=== PATIENT | female | born 1950 | race Caucasian/White ===

== ENCOUNTER 2017-07-22 05:52 | Observation (INO) | payer MEDICARE ==
[~2017-07-22] VITALS: Ht 165.1 cm; Wt 78.9 kg
[~2017-07-22 05:52] MED LIST: ADVA250A INH; BENZ0.5T PO; ERYTOIN10 RIGHT EYE; FLUT50SP EACH NARE; FURO20TA PO; HUMALOG SQ; LAMO100T PO; LANTUS2P SQ; LEVO150T7 PO; LINA145C PO; LISI10TA3 PO; LOSA100T PO; MELO7.5T27 PO; METF-381 PO; METO10TA PO; METO25TA3 PO; NEXI40GR PO; OLAN10TA PO; QUET1TAB10 PO; REST0.05 EACH EYE; SENN1TAB17 PO; TOPA50TA7 PO; TYLETAB34 PO; ZOLO100T PO
[2017-07-22] MEDS ORDERED: CHLORHEXIDINE GLUCONATE 2 % 1 PACK (2 CLOTHS) TOPICAL PRN (06:45)
[2017-07-22] MEDS ORDERED: ceFAZolin 2 GM PREMIX 50 ML IV SCH (06:45)
[2017-07-22] MEDS ORDERED: SODIUM CHLORID 0.9% 500 ML IV PRN (06:45)
[2017-07-22] MEDS ORDERED: LACTATED RINGER'S 1000 ML IV PRN (06:45)
[2017-07-22] MEDS ORDERED: POVIDONE IODINE 5% (ANTISEPSIS KIT) 4 APPLICATIONS EACH NARE PRN (06:45)
[2017-07-22] MEDS ORDERED: INSULIN HUMAN REGULAR 1,000 UNITS/10 ML VIAL SQ PRN (06:45)
[2017-07-22] MEDS ORDERED: METOPROLOL TARTRATE 25 MG TAB PO PRN (06:45)
[2017-07-22] MEDS ORDERED: FURO20TA PO (07:03)
[2017-07-22] MEDS ORDERED: LANTINJ SQ ×2 (07:14)
[2017-07-22] MEDS ORDERED: INSU100V2 SQ (07:18)
[2017-07-22] MEDS ORDERED: SENO8.6T5 PO (07:24)
--- NOTE | 2017-07-22 10:24 | EKG ---
Date Performed: 07/22/2017 Time Performed: 06:55:30 PTAGE: 66 years EKG: Sinus rhythm NORMAL ECG Compared to prior tracing no significant change PREVIOUS TRACING : 11/06/2013 13.20 DOCTOR: Oskar Sun Interpretating Date/Time 07/22/2017 10:23:04
--- NOTE | 2017-07-22 11:03 | RADRPT ---
EXAM DATE/TIME: 07/22/2017 09:15 [facility] COMPARISON: No previous studies available for comparison. EXTERNAL COMPARISON : [facility], MR BREAST, BILATERAL, June 19, 2017TLI, MG MAMMOGRAM POST BX, April , TLI, US GUIDED BREAST BIOPSY MAY 27, 2017, DEL, US BREAST, LEFT , APRIL 30 2017, DEL, MG MAMMOG KARON, LEFT, April, DEL, MG SCREENING MAMMOGRAM, APRIL 17, 2017, DEL, MG SCREENING GDIG MAMMO, MARCH 26, 2017 INDICATIONS : Left breast cancer. MEDICAL HISTORY : Carcinoma, breast. Hypertension. Diabetes mellitus type 2. COPD SURGICAL HISTORY : Knee replacement. Breast biopsy. ENCOUNTER: Sequela ACUITY: 3 months PAIN SCORE: 0/10 LOCATION: Left breast. AREA EVALUATED: Left breast, mid quadrant; at 12 o'clock Radiopharmaceutical dose: 1.0 Tc99m [place] colloid FINDINGS: Breast ultrasound was performed prior to lymphoscintigraphy. Injection was performed in the lesion a s well as in the subareolar region overlying the lesion. CONCLUSION: 1. Ultrasound guided injection of technetium 99m sulfur colloid for performance of breast lymphoscint igraphy. Maxi Freedman MD on July 22, 2017 at 11:00 Board Certified Radiologist. This report was verified electronically.
--- NOTE | 2017-07-22 11:03 | RADRPT ---
EXAM DATE/TIME: 07/22/2017 09:15 [facility] COMPARISON: No previous studies available for comparison. EXTERNAL COMPARISON : [facility], MR BREAST, BILATERAL, June 19, 2017TLI, MG MAMMOGRAM POST BX, April , TLI, US GUIDED BREAST BIOPSY MAY 27, 2017, DEL, US BREAST, LEFT , APRIL 30 2017, DEL, MG MAMMOG KARON, LEFT, April, DEL, MG SCREENING MAMMOGRAM, APRIL 17, 2017, DEL, MG SCREENING GDIG MAMMO, MARCH 26, 2017 INDICATIONS : Left breast cancer. MEDICAL HISTORY : Carcinoma, breast. Hypertension. Diabetes mellitus type 2. COPD SURGICAL HISTORY : Knee replacement. Breast biopsy. ENCOUNTER: Sequela ACUITY: 3 months PAIN SCORE: 0/10 LOCATION: Left breast. AREA EVALUATED: Left breast, mid quadrant; at 12 o'clock Radiopharmaceutical dose: 1.0 Tc99m [place] colloid FINDINGS: Breast ultrasound was performed prior to lymphoscintigraphy. Injection was performed in the lesion a s well as in the subareolar region overlying the lesion. CONCLUSION: 1. Ultrasound guided injection of technetium 99m sulfur colloid for performance of breast lymphoscint igraphy. Maxi Freedman MD on July 22, 2017 at 11:00 Board Certified Radiologist. This report was verified electronically.
[2017-07-22] MEDS ORDERED: HYDROmorphone HCL PF 2 MG/ML VIAL ONE (11:12)
[2017-07-22] MEDS ORDERED: ACETAMINOPHEN 1000 MG/100 ML 100 ML IV ONE (11:12)
[2017-07-22] MEDS ORDERED: DEXTROSE 50% IN WATER 50 ML SYRINGE ONE (12:44)
[2017-07-22] MEDS ORDERED: HEPARIN SODIUM - SQ 10,000 UNITS/ML VIAL ONE (13:14)
--- NOTE | 2017-07-22 13:16 | RADRPT ---
EXAM DATE/TIME: 07/22/2017 09:39 [facility] COMPARISON: No previous studies available for comparison. EXTERNAL COMPARISON : [facility], MR BREAST BILATERAL, June 19, 2017 INDICATIONS : Left sided breast cancer. DOSE: 1.0 mCi Tc99m Sulfur Colloid deep and instradermal INJECTION SITE: Left Breast IMAGING: SPECT/CT imaging with fusion was performed. RADIATION DOSE: 2.87 CTDIvol (mGy) MEDICAL HISTORY : Hypertension. Hypothyroidism. Chronic obstructive pulmonary disease. SURGICAL HISTORY : Hysterectomy. Tubal ligation. Inguinal hernia repair. ENCOUNTER: Initial ACUITY: 1 month PAIN SCALE: 0/10 LOCATION: Left Breast. TECHNIQUE: Injection(s) of sulfur colloid was performed under sonographic guidance. Static imaging was obtained .. FINDINGS: Imaging of the left breast was obtained and confirms the intradermal and deep injection in the left b reast. There are 2 regions of justice uptake in the left axilla which were marked with a skin marker in the lateral projection. CONCLUSION: 1. Breast lymphoscintigraphy demonstrating 2 regions of justice uptake in the left axilla which were ma rked with a skin marker in the lateral projection. Maxi Freedman MD on July 22, 2017 at 13:04 Board Certified Radiologist. This report was verified electronically.
[2017-07-22] MEDS ORDERED: ESMOLOL HCL 100 MG/10 ML VIAL IV ONE (13:18)
[2017-07-22] MEDS ORDERED: PROPOFOL 200 MG/20 ML AMP IV ONE (13:18)
[2017-07-22] MEDS ORDERED: NEOSTIGMINE 3 MG/3 ML SYR IV ONE (13:18)
[2017-07-22] MEDS ORDERED: ROCURONIUM INJ 50 MG/5 ML SYRINGE IV PUSH ONE (13:18)
[2017-07-22] MEDS ORDERED: SODIUM CHLORIDE 0.9% 20 ML VIAL IV ONE (13:18)
[2017-07-22] MEDS ORDERED: STERILE WATER FOR INJECTION 20 ML VIAL IV ONE (13:18)
[2017-07-22] MEDS ORDERED: ePHEDrine/NS 25 MG/5 ML SYR IV ONE (13:18)
[2017-07-22] MEDS ORDERED: ONDANSETRON HCL 4 MG/2 ML VIAL IV PUSH ONE (13:18)
[2017-07-22] MEDS ORDERED: MIDAZOLAM HCL 2 MG/2 ML VIAL IV ONE (13:18)
[2017-07-22] MEDS ORDERED: PHENYLEPH/NS 1000 MCG/10 ML SYR IV ONE (13:18)
[2017-07-22] MEDS ORDERED: LIDOCAINE HCL 1% PF 5 ML AMPULE OTHER ONE (13:18)
[2017-07-22] MEDS ORDERED: KETOROLAC TROMETHAMINE 30 MG/ML (IVP) VIAL IV PUSH ONE (13:18)
[2017-07-22] MEDS ORDERED: DEXAMETHASONE SOD PHOS 4 MG/ML VIAL IV ONE (13:18)
[2017-07-22] MEDS ORDERED: VECURONIUM BROMIDE 20 MG VIAL IV ONE (13:18)
[2017-07-22] MEDS ORDERED: NORMOSOL R INJ 2,000 ML IV ONE (13:18)
[2017-07-22] MEDS ORDERED: GLYCOPYRROLATE 1 MG/5 ML SYRINGE IV PUSH ONE (13:18)
[2017-07-22 13:34] LABS: AUTOMATED NEUTROPHIL # 4.7 TH/MM3 (1.8-7.7); BASOPHIL % 0.7 % (0.0-2.0); EOSINOPHIL # 0.3 TH/MM3 (0-0.4); EOSINOPHIL % 4.7 % (0.0-4.0); HEMATOCRIT 33.3 % (35.0-46.0); LYMPH % 21.4 % (9.0-44.0); LYMPHOCYTE # 1.5 TH/MM3 (1.0-4.8); MEAN CELL VOLUME 85.8 FL (80.0-100.0); MEAN CORPUSCULAR HEMOGLOBIN 28.3 PG (27.0-34.0); MEAN PLATELET VOLUME 9.4 FL (7.0-11.0); MONO % 7.2 % (0.0-8.0); MONOCYTE # 0.5 TH/MM3 (0-0.9); PLATELET COUNT 183 TH/MM3 (150-450); RED BLOOD COUNT 3.89 MIL/MM3 (4.00-5.30); RED CELL DISTRIBUTION WIDTH 14.2 % (11.6-17.2); WHITE BLOOD COUNT 7.2 TH/MM3 (4.0-11.0)
[2017-07-22 13:47] LABS: BICARBONATE 26.5 MEQ/L (21.0-32.0); CREATININE 0.9 MG/DL (0.50-1.00)
[2017-07-22] MEDS ORDERED: ISOSULFAN BLUE 50 MG/5 ML VIAL SQ ONE (14:25)
[2017-07-22] MEDS ORDERED: BUPIVACAINE/EPINEPHRINE 0.25% PF 30 ML VIAL INFIL ONE (15:45)
[2017-07-22] MEDS ORDERED: Post-op Orders (for Pharmacy) MISC XX ONE (16:00)
[2017-07-22] MEDS ORDERED: diphenhydrAMINE HCL 50 MG/ML VIAL IV PUSH PRN (16:00)
[2017-07-22] MEDS ORDERED: ONDANSETRON HCL 4 MG/2 ML VIAL IV PUSH PRN (16:00)
[2017-07-22] MEDS ORDERED: SENNOSIDES 8.6 MG TAB PO PRN (16:00)
[2017-07-22] MEDS ORDERED: oxyCODONE/ACETAMINOPHEN 5 MG/325 MG TAB PO PRN (16:00)
[2017-07-22] MEDS ORDERED: NALOXONE HCL 0.4 MG/ML AMP IV PUSH PRN (16:00)
[2017-07-22] MEDS ORDERED: KETOROLAC TROMETHAMINE 30 MG/ML (IVP) VIAL IVP PRN (16:00)
[2017-07-22] MEDS ORDERED: SODIUM CHLORIDE 0.9% FLUSH 5 ML FLUSH IVF PRN (16:00)
[2017-07-22] MEDS ORDERED: MORPHINE SULFATE 2 MG/ML INJ IV PUSH PRN (16:00)
[2017-07-22] MEDS ORDERED: NALOXONE HCL 0.4 MG/ML AMP ONE (16:13)
[2017-07-22] MEDS ORDERED: DO NOT ADM ANY ANTICOAGULANT DRUGS PRN (16:30)
[2017-07-22] MEDS ORDERED: *ONDANSETRON 4 MG VIAL PERIprocedural Use ONLY ONE (16:44)
[2017-07-22] MEDS ORDERED: INSULIN REGULAR 100 UNIT/ML IV SCH (17:00)
[2017-07-22] MEDS: LACTATED RINGER'S 1000 ML INJ 1,000 ML IV SCH (17:07)
--- NOTE | 2017-07-22 17:09 | RADRPT ---
EXAM DATE/TIME: 07/22/2017 16:40 [facility] COMPARISON: No previous studies available for comparison. INDICATIONS : Right chest port placement. MEDICAL HISTORY : Carcinoma, breast. SURGICAL HISTORY : Tubal ligation. Hysterectomy. Mastectomy, bilateral. Hernia repair. Cataract correction. ENCOUNTER: Initial ACUITY: 1 day PAIN SCORE: Non-responsive. LOCATION: Bilateral chest FINDINGS: Right Qmdywn-l-Hneg catheter tip is projected at the cavoatrial junction. No evidence of pneumothora x. There is some thickening of the pleura in the right apex which is nonspecific but raises the poss ibility of a pleural effusion. No blunting of costophrenic angle on the right. There is some fullne ss in the hilar region bilaterally and patches of infiltrate in the left infrahilar region. Surgical drain projects over the lower left chest. CONCLUSION: 1. Loreek-b-Vtig in good position. No evidence pneumothorax. 2. Patchy partially consolidated infiltrates left infrahilar region. 3. Possible right-sided pleural effusion. Valdemar Fink MD on July 22, 2017 at 17:05 Board Certified Radiologist. This report was verified electronically.
--- NOTE | 2017-07-22 17:09 | RADRPT ---
EXAM DATE/TIME: 07/22/2017 16:40 [facility] COMPARISON: No previous studies available for comparison. INDICATIONS : Right chest port placement. MEDICAL HISTORY : Carcinoma, breast. SURGICAL HISTORY : Tubal ligation. Hysterectomy. Mastectomy, bilateral. Hernia repair. Cataract correction. ENCOUNTER: Initial ACUITY: 1 day PAIN SCORE: Non-responsive. LOCATION: Bilateral chest FINDINGS: Right Tdkpfb-i-Gxrg catheter tip is projected at the cavoatrial junction. No evidence of pneumothora x. There is some thickening of the pleura in the right apex which is nonspecific but raises the poss ibility of a pleural effusion. No blunting of costophrenic angle on the right. There is some fullne ss in the hilar region bilaterally and patches of infiltrate in the left infrahilar region. Surgical drain projects over the lower left chest. CONCLUSION: 1. Lwayna-w-Zovp in good position. No evidence pneumothorax. 2. Patchy partially consolidated infiltrates left infrahilar region. 3. Possible right-sided pleural effusion. Valdemar Fink MD on July 22, 2017 at 17:05 Board Certified Radiologist. This report was verified electronically.
--- NOTE | 2017-07-22 17:09 | RADRPT ---
EXAM DATE/TIME: 07/22/2017 16:40 [facility] COMPARISON: No previous studies available for comparison. INDICATIONS : Right chest port placement. MEDICAL HISTORY : Carcinoma, breast. SURGICAL HISTORY : Tubal ligation. Hysterectomy. Mastectomy, bilateral. Hernia repair. Cataract correction. ENCOUNTER: Initial ACUITY: 1 day PAIN SCORE: Non-responsive. LOCATION: Bilateral chest FINDINGS: Right Jmigvz-f-Mkal catheter tip is projected at the cavoatrial junction. No evidence of pneumothora x. There is some thickening of the pleura in the right apex which is nonspecific but raises the poss ibility of a pleural effusion. No blunting of costophrenic angle on the right. There is some fullne ss in the hilar region bilaterally and patches of infiltrate in the left infrahilar region. Surgical drain projects over the lower left chest. CONCLUSION: 1. Lzffvy-e-Qnaf in good position. No evidence pneumothorax. 2. Patchy partially consolidated infiltrates left infrahilar region. 3. Possible right-sided pleural effusion. Valdemar Fink MD on July 22, 2017 at 17:05 Board Certified Radiologist. This report was verified electronically.
[2017-07-22 18:00] VITALS: BP 100/51; PULSE 76; RESP 18; TEMP 97.6; O2SAT 92
[2017-07-22 20:22] VITALS: BP 122/56; PULSE 90; RESP 18; TEMP 97.9; O2SAT 93
[2017-07-22] MEDS: SODIUM CHLORIDE 0.9% FLUSH 5 ML FLUSH IVF SCH (21:00)
[2017-07-22] MEDS: MEDIUM DOSE INSULIN NOVOLIN REGULAR SUPPLEMENTAL SCALE SQ SCH (21:00)
[2017-07-22] MEDS: CYCLOSPORINE OPTH 0.05% EACH EYE SCH (21:00)
[2017-07-22] MEDS: FLUTICASONE PROPIONATE 50 MCG/ACT 16 GM NASAL SPRAY EACH NARE SCH (22:25)
[2017-07-22] MEDS: OLANZapine 10 MG TAB PO SCH (22:26)
[2017-07-22] MEDS: QUEtiapine FUMARATE 300 MG TAB PO SCH (22:26)
[2017-07-22] MEDS: MELOXICAM 7.5 MG TAB PO SCH (22:26)
[2017-07-22] MEDS: lamoTRIgine 100 MG TAB PO SCH (22:27)
[2017-07-22] MEDS: METOPROLOL TARTRATE 25 MG TAB PO SCH (22:38)
[2017-07-22] MEDS: TOPIRAMATE 25 MG TAB PO SCH (22:38)
[2017-07-22] MEDS: INSULIN DETEMIR 100 UNITS/ML VIAL SQ SCH (22:40)
[2017-07-23 00:28] VITALS: BP 125/60; PULSE 89; RESP 18; TEMP 97.8; O2SAT 94
[2017-07-23] MEDS: LACTATED RINGER'S 1000 ML INJ 1,000 ML IV SCH ×2 (01:51→15:51)
[2017-07-23] MEDS: oxyCODONE/ACETAMINOPHEN 5 MG/325 MG TAB PO PRN ×3 (03:52→20:05)
[2017-07-23 04:35] VITALS: BP 162/67; PULSE 79; RESP 18; TEMP 98.1; O2SAT 95
[2017-07-23 08:00] VITALS: BP 120/54; PULSE 75; RESP 17; TEMP 96.8; O2SAT 92
[2017-07-23] MEDS: MEDIUM DOSE INSULIN NOVOLIN REGULAR SUPPLEMENTAL SCALE SQ SCH ×4 (08:00→21:00)
[2017-07-23] MEDS: SODIUM CHLORIDE 0.9% FLUSH 5 ML FLUSH IVF SCH ×2 (09:00→20:09)
[2017-07-23] MEDS: CYCLOSPORINE OPTH 0.05% EACH EYE SCH ×2 (09:00→20:07)
[2017-07-23] MEDS ORDERED: PANTOPRAZOLE SOD 40 MG DELAYED RELEASE TAB PO SCH (09:00)
[2017-07-23] MEDS: NON-FORMULARY DRUG (Linaclotide (Linzess) 145 MCG) PO SCH (09:00)
[2017-07-23] MEDS: TOPIRAMATE 25 MG TAB PO SCH ×2 (09:12→20:05)
[2017-07-23] MEDS: MELOXICAM 7.5 MG TAB PO SCH ×2 (09:12→20:06)
[2017-07-23] MEDS: METOPROLOL TARTRATE 25 MG TAB PO SCH ×2 (09:12→20:07)
[2017-07-23] MEDS: SERTRALINE HCL 100 MG TAB PO SCH (09:12)
[2017-07-23] MEDS: FUROSEMIDE 20 MG TAB PO SCH (09:12)
[2017-07-23] MEDS: LISINOPRIL 10 MG TAB PO SCH (09:13)
[2017-07-23] MEDS: LEVOTHYROXINE SODIUM 150 MCG TAB PO SCH (09:13)
[2017-07-23] MEDS: BENZTROPINE MESYLATE 1 MG TAB PO SCH (09:14)
[2017-07-23] MEDS: lamoTRIgine 100 MG TAB PO SCH ×2 (09:14→20:06)
[2017-07-23] MEDS: INSULIN DETEMIR 100 UNITS/ML VIAL SQ SCH ×2 (09:15→21:00)
--- NOTE | 2017-07-23 09:46 | HHI.PR ---
Subjective Subjective Notes feels fine, only a little pain, up walking around room Objective Vitals/I&O Vital Signs Date Time Temp Pulse Resp B/P (MAP) Pulse Ox O2 Delivery O2 Flow Rate FiO2 07/23/17 08:00 96.8 75 17 120/54 (76) 92 07/22/17 17:17 Nasal Cannula 2 Labs Laboratory Tests Test 07/22/17 13:08 White Blood Count 7.2 Red Blood Count 3.89 Hemoglobin 11.0 Hematocrit 33.3 Mean Corpuscular Volume 85.8 Mean Corpuscular Hemoglobin 28.3 Mean Corpuscular Hemoglobin Concent 33.0 Red Cell Distribution Width 14.2 Platelet Count 183 Mean Platelet Volume 9.4 Neutrophils (%) (Auto) 66.0 Lymphocytes (%) (Auto) 21.4 Monocytes (%) (Auto) 7.2 Eosinophils (%) (Auto) 4.7 Basophils (%) (Auto) 0.7 Neutrophils # (Auto) 4.7 Lymphocytes # (Auto) 1.5 Monocytes # (Auto) 0.5 Eosinophils # (Auto) 0.3 Basophils # (Auto) 0.0 CBC Comment DIFF FINAL Differential Comment Blood Urea Nitrogen 20 Creatinine 0.90 Random Glucose 151 Calcium Level 8.0 Sodium Level 142 Potassium Level 3.5 Chloride Level 110 Carbon Dioxide Level 26.5 Anion Gap 6 Estimat Glomerular Filtration Rate 63 Cardiovascular: Regular Lungs: Clear Abdomen: Non-distended Narrative Exam SATYA with serosanginous output Wound Wound : Wound Location: Chest Appearance: Clean & Dry A/P Assessment and Plan s/p bilateral mastectomy, infusport will set up C will assess for DC later today Sly Pablo MD Jul 23, 2017 09:46
[2017-07-23] MEDS ORDERED: INFLUENZA VIRUS VACCINE (QUADRIVALENT) 0.5 ML SYR IM ONE (10:00)
--- NOTE | 2017-07-23 10:26 | HHI.FF ---
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 My clinical findings support the need for the requested home health care services because: Med compliance is questionable Limited ability to care for self Need for psychosocial assistance I certify that my clinical findings support that this patient is homebound because: Unsafe to leave home unassisted Need for psychosocial assistance Unable to use public transportation Sly Pablo MD Jul 23, 2017 10:26
[2017-07-23] MEDS: PANTOPRAZOLE SOD 40 MG DELAYED RELEASE TAB PO SCH (11:04)
[2017-07-23] MEDS: FLUTICASONE PROPIONATE 50 MCG/ACT 16 GM NASAL SPRAY EACH NARE SCH ×2 (11:04→20:07)
--- NOTE | 2017-07-23 11:24 | MP ---
cc: ANSON OMER M.D. DATE OF SURGERY 07/22/2017 PREOPERATIVE DIAGNOSIS 1. Left breast cancer. 2. Strong family history of breast cancer. POSTOPERATIVE DIAGNOSIS 1. Left breast cancer. 2. Strong family history of breast cancer. PROCEDURE PERFORMED 1. Right subclavian Ejqzid-B-Idie with intraoperative fluoroscopy. 2. Right simple mastectomy 3. Left simple mastectomy 4. Injection and excision sentinel lymph node left axilla x2. SURGEON Anson Omer MD F[employer] C[employer]TER [place] [facility] Medical student working with Dr. Bojorquez MS-3 ANESTHESIA General endotracheal COMPLICATIONS None INDICATION FOR THE PROCEDURE Ms. Muse is a pleasant 66-year-old female who was noted to have a mammographic abnormality he in the left breast. She underwent biopsy and this was found to be a well-differentiated left breast cancer. She was found be HER2 positive by FISH. She was seen, evaluated and discussed at breast conference. She was felt to benefit from a year of Herceptin. She was seen back in the office and multiple surgical options were discussed with her including lumpectomy versus mastectomy. After careful consideration, the patient elected to proceed with bilateral mastectomies based on her strong family history of breast cancer. The patient was seen back in the office and we discuss bilateral mastectomy, sentinel lymph node injection, excision left axilla and Kcfhzl-K-Ivcz placement. The patient was agreeable. INTRAOPERATIVE FINDINGS The patient was noted to have two blue [place] nodes in the left axilla. The first node had a count of approximately 2500. The second one had a count of approximately 1800. Once these two nodes were excised, the remainder of the axillary tail of the breast was checked and there was no significant activity and no blue dye. The axilla proper was then inspected. There was no blue dye within the axilla and the remaining nodes. There were no palpable nodes. Using the probe, we could detect no significant activity. The remaining axillary nodes were left in place. DETAILS The patient was identified, brought to the operating room, placed supine on the operating table. After adequate general endotracheal anesthesia was achieved, the anterior chest, neck and axillas were prepped and draped in standard surgical fashion. Attention was first directed to the right subclavian area. The right subclavian vein was accessed without difficulty using an 18 gauge needle. A guidewire was advanced and followed to the level of the superior vena cava. An introducer was then placed over the guidewire and again followed up the superior vena cava. The catheter was then introduced and advanced to about 30 cm and left in place. The catheter was then Steri-Stripped to the draped in the area for the port to be put in during the mastectomy. Attention was now directed to the right mastectomy. Using an elliptical incision 8 x 15 cm, the breast was incised after anesthetizing the skin and subcutaneous tissue with 0.25% Marcaine. Subcutaneous skin flaps were raised cephalad to the clavicle, medially to the sternum, inferiorly to the inframammary ridge and lateral to the midaxillary line. The breast was then dissected up off the pectoralis major muscle using electrocautery Bovie. Once the axillary tail was achieved, the breast was then transected. A short stitch was placed superior, a long stitch placed lateral and the specimen sent to pathology for analysis. The axilla was palpated and there was no palpable adenopathy of concern. Next, attention was redirected back to the Atswat-W-Omlr catheter. Dissection of the superior flap revealed the Jzwvtq-H-Bxhw catheter. It was then grasped and brought down into the mastectomy flap. Fluoroscopy was then used to pull the catheter back to a position in the superior vena cava adjacent to the right atrium. Once we did this, the catheter was attached to the port with a locking device. The port was then tested, found to have ability to flush and it was then secured to the pectoralis muscle in two places using a 2-0 Prolene suture. Now the entire right chest cavity was copiously irrigated with one liter of warm saline solution. A 10-[place] Srinivasa-Morales drain was inserted through a separate stab wound incision in the lateral lower chest. The drain was secured with 3-0 nylon. The wound was then closed in two-layer using 2-0 Vicryl, 3-0 Vicryl and 4-0 Vicryl. Sterile dressings were applied. Attention was now directed to the left side. On the left side, a similar elliptical incision was used 8 x 15 cm. Subcutaneous skin flaps raised cephalad to the clavicle, medially to the sternum and inferiorly the inframammary ridge and also laterally to the midaxillary line. The breast was then dissected up off the pectoralis major muscle using electrocautery Bovie. The breast was then followed into the axilla proper where the axillary tail was identified. Two blue nodes were identified within the axillary tail and we therefore elected to transect the axillary tail distal to these nodes. Once we did this, the specimen was put up on the surgical field. The two blue nodes were excised using sharp dissection. They were then checked. The first one had a count of approximately 2500. The second one had a count of approximately 1800. These were labeled as [place] node number one and [place] node number, both nodes were blue and the counts were recorded. After we did this, the axillary tail was inspected. There was no palpable adenopathy in the axillary tail. The probe was used to check the tail and there was no significant probe activity. We then redirected our attention to the axilla proper. The axilla proper was carefully inspected. There was no blue dye and no blue dye channel seen in the axilla. The axilla was palpated. There was no palpable gross adenopathy. We then used a probe to double check and there was no significant activity within the axilla proper. At this point, we felt confident we had the [place] nodes. The wound was copiously irrigated with normal saline solution one liter. A 10-[place] Srinivasa-Morales drain was inserted through separate stab wound incision. The wound was then closed in two layers using 2-0, 3-0 and 4-0 Vicryl. The drain was secured with 3-0 nylon. Sterile dressings were applied. 20 cc of quarter percent Marcaine was injected into each drain at the conclusion of the procedure. The patient tolerated the procedure well, was awakened and brought to recovery in stable condition. MD DARYL Man/DENNIS /4:00 PM /11:03 AM
--- NOTE | 2017-07-23 11:24 | MP ---
cc: ANSON OMER M.D. DATE OF SURGERY 07/22/2017 PREOPERATIVE DIAGNOSIS 1. Left breast cancer. 2. Strong family history of breast cancer. POSTOPERATIVE DIAGNOSIS 1. Left breast cancer. 2. Strong family history of breast cancer. PROCEDURE PERFORMED 1. Right subclavian Wntvqv-X-Whlc with intraoperative fluoroscopy. 2. Right simple mastectomy 3. Left simple mastectomy 4. Injection and excision sentinel lymph node left axilla x2. SURGEON Anson Omer MD CAFE ATTENDANT [place] [facility] Medical student working with Dr. Bojorquez MS-3 ANESTHESIA General endotracheal COMPLICATIONS None INDICATION FOR THE PROCEDURE Ms. Muse is a pleasant 66-year-old female who was noted to have a mammographic abnormality he in the left breast. She underwent biopsy and this was found to be a well-differentiated left breast cancer. She was found be HER2 positive by FISH. She was seen, evaluated and discussed at breast conference. She was felt to benefit from a year of Herceptin. She was seen back in the office and multiple surgical options were discussed with her including lumpectomy versus mastectomy. After careful consideration, the patient elected to proceed with bilateral mastectomies based on her strong family history of breast cancer. The patient was seen back in the office and we discuss bilateral mastectomy, sentinel lymph node injection, excision left axilla and Bexgcr-P-Gkvp placement. The patient was agreeable. INTRAOPERATIVE FINDINGS The patient was noted to have two blue [place] nodes in the left axilla. The first node had a count of approximately 2500. The second one had a count of approximately 1800. Once these two nodes were excised, the remainder of the axillary tail of the breast was checked and there was no significant activity and no blue dye. The axilla proper was then inspected. There was no blue dye within the axilla and the remaining nodes. There were no palpable nodes. Using the probe, we could detect no significant activity. The remaining axillary nodes were left in place. DETAILS The patient was identified, brought to the operating room, placed supine on the operating table. After adequate general endotracheal anesthesia was achieved, the anterior chest, neck and axillas were prepped and draped in standard surgical fashion. Attention was first directed to the right subclavian area. The right subclavian vein was accessed without difficulty using an 18 gauge needle. A guidewire was advanced and followed to the level of the superior vena cava. An introducer was then placed over the guidewire and again followed up the superior vena cava. The catheter was then introduced and advanced to about 30 cm and left in place. The catheter was then Steri-Stripped to the draped in the area for the port to be put in during the mastectomy. Attention was now directed to the right mastectomy. Using an elliptical incision 8 x 15 cm, the breast was incised after anesthetizing the skin and subcutaneous tissue with 0.25% Marcaine. Subcutaneous skin flaps were raised cephalad to the clavicle, medially to the sternum, inferiorly to the inframammary ridge and lateral to the midaxillary line. The breast was then dissected up off the pectoralis major muscle using electrocautery Bovie. Once the axillary tail was achieved, the breast was then transected. A short stitch was placed superior, a long stitch placed lateral and the specimen sent to pathology for analysis. The axilla was palpated and there was no palpable adenopathy of concern. Next, attention was redirected back to the Tzauzq-A-Sebh catheter. Dissection of the superior flap revealed the Ekzxnh-R-Lrcm catheter. It was then grasped and brought down into the mastectomy flap. Fluoroscopy was then used to pull the catheter back to a position in the superior vena cava adjacent to the right atrium. Once we did this, the catheter was attached to the port with a locking device. The port was then tested, found to have ability to flush and it was then secured to the pectoralis muscle in two places using a 2-0 Prolene suture. Now the entire right chest cavity was copiously irrigated with one liter of warm saline solution. A 10-[place] Srinivasa-Morales drain was inserted through a separate stab wound incision in the lateral lower chest. The drain was secured with 3-0 nylon. The wound was then closed in two-layer using 2-0 Vicryl, 3-0 Vicryl and 4-0 Vicryl. Sterile dressings were applied. Attention was now directed to the left side. On the left side, a similar elliptical incision was used 8 x 15 cm. Subcutaneous skin flaps raised cephalad to the clavicle, medially to the sternum and inferiorly the inframammary ridge and also laterally to the midaxillary line. The breast was then dissected up off the pectoralis major muscle using electrocautery Bovie. The breast was then followed into the axilla proper where the axillary tail was identified. Two blue nodes were identified within the axillary tail and we therefore elected to transect the axillary tail distal to these nodes. Once we did this, the specimen was put up on the surgical field. The two blue nodes were excised using sharp dissection. They were then checked. The first one had a count of approximately 2500. The second one had a count of approximately 1800. These were labeled as [place] node number one and [place] node number, both nodes were blue and the counts were recorded. After we did this, the axillary tail was inspected. There was no palpable adenopathy in the axillary tail. The probe was used to check the tail and there was no significant probe activity. We then redirected our attention to the axilla proper. The axilla proper was carefully inspected. There was no blue dye and no blue dye channel seen in the axilla. The axilla was palpated. There was no palpable gross adenopathy. We then used a probe to double check and there was no significant activity within the axilla proper. At this point, we felt confident we had the [place] nodes. The wound was copiously irrigated with normal saline solution one liter. A 10-[place] Srinivasa-Morales drain was inserted through separate stab wound incision. The wound was then closed in two layers using 2-0, 3-0 and 4-0 Vicryl. The drain was secured with 3-0 nylon. Sterile dressings were applied. 20 cc of quarter percent Marcaine was injected into each drain at the conclusion of the procedure. The patient tolerated the procedure well, was awakened and brought to recovery in stable condition. MD DARYL Man/DENNIS /4:00 PM /11:03 AM
--- NOTE | 2017-07-23 11:24 | MP ---
cc: ANSON OMER M.D. DATE OF SURGERY 07/22/2017 PREOPERATIVE DIAGNOSIS 1. Left breast cancer. 2. Strong family history of breast cancer. POSTOPERATIVE DIAGNOSIS 1. Left breast cancer. 2. Strong family history of breast cancer. PROCEDURE PERFORMED 1. Right subclavian [id number]-P-[id number] with intraoperative fluoroscopy. 2. Right simple mastectomy 3. Left simple mastectomy 4. Injection and excision sentinel lymph node left axilla x2. SURGEON Anson Omer MD [employer] [place] [facility] Medical student working with Dr. Bojorquez MS-3 ANESTHESIA General endotracheal COMPLICATIONS None INDICATION FOR THE PROCEDURE Ms. Muse is a pleasant 66-year-old female who was noted to have a mammographic abnormality he in the left breast. She underwent biopsy and this was found to be a well-differentiated left breast cancer. She was found be HER2 positive by FISH. She was seen, evaluated and discussed at breast conference. She was felt to benefit from a year of Herceptin. She was seen back in the office and multiple surgical options were discussed with her including lumpectomy versus mastectomy. After careful consideration, the patient elected to proceed with bilateral mastectomies based on her strong family history of breast cancer. The patient was seen back in the office and we discuss bilateral mastectomy, sentinel lymph node injection, excision left axilla and Nmvyje-T-[id number] placement. The patient was agreeable. INTRAOPERATIVE FINDINGS The patient was noted to have two blue [place] nodes in the left axilla. The first node had a count of approximately 2500. The second one had a count of approximately 1800. Once these two nodes were excised, the remainder of the axillary tail of the breast was checked and there was no significant activity and no blue dye. The axilla proper was then inspected. There was no blue dye within the axilla and the remaining nodes. There were no palpable nodes. Using the probe, we could detect no significant activity. The remaining axillary nodes were left in place. DETAILS The patient was identified, brought to the operating room, placed supine on the operating table. After adequate general endotracheal anesthesia was achieved, the anterior chest, neck and axillas were prepped and draped in standard surgical fashion. Attention was first directed to the right subclavian area. The right subclavian vein was accessed without difficulty using an 18 gauge needle. A guidewire was advanced and followed to the level of the superior vena cava. An introducer was then placed over the guidewire and again followed up the superior vena cava. The catheter was then introduced and advanced to about 30 cm and left in place. The catheter was then Steri-Stripped to the draped in the area for the port to be put in during the mastectomy. Attention was now directed to the right mastectomy. Using an elliptical incision 8 x 15 cm, the breast was incised after anesthetizing the skin and subcutaneous tissue with 0.25% Marcaine. Subcutaneous skin flaps were raised cephalad to the clavicle, medially to the sternum, inferiorly to the inframammary ridge and lateral to the midaxillary line. The breast was then dissected up off the pectoralis major muscle using electrocautery Bovie. Once the axillary tail was achieved, the breast was then transected. A short stitch was placed superior, a long stitch placed lateral and the specimen sent to pathology for analysis. The axilla was palpated and there was no palpable adenopathy of concern. Next, attention was redirected back to the Ugxzrs-Z-Fdzs catheter. Dissection of the superior flap revealed the Kodlfo-P-Dgru catheter. It was then grasped and brought down into the mastectomy flap. Fluoroscopy was then used to pull the catheter back to a position in the superior vena cava adjacent to the right atrium. Once we did this, the catheter was attached to the port with a locking device. The port was then tested, found to have ability to flush and it was then secured to the pectoralis muscle in two places using a 2-0 Prolene suture. Now the entire right chest cavity was copiously irrigated with one liter of warm saline solution. A 10-Somali Srinivasa-Morales drain was inserted through a separate stab wound incision in the lateral lower chest. The drain was secured with 3-0 nylon. The wound was then closed in two-layer using 2-0 Vicryl, 3-0 Vicryl and 4-0 Vicryl. Sterile dressings were applied. Attention was now directed to the left side. On the left side, a similar elliptical incision was used 8 x 15 cm. Subcutaneous skin flaps raised cephalad to the clavicle, medially to the sternum and inferiorly the inframammary ridge and also laterally to the midaxillary line. The breast was then dissected up off the pectoralis major muscle using electrocautery Bovie. The breast was then followed into the axilla proper where the axillary tail was identified. Two blue nodes were identified within the axillary tail and we therefore elected to transect the axillary tail distal to these nodes. Once we did this, the specimen was put up on the surgical field. The two blue nodes were excised using sharp dissection. They were then checked. The first one had a count of approximately 2500. The second one had a count of approximately 1800. These were labeled as [place] node number one and [place] node number, both nodes were blue and the counts were recorded. After we did this, the axillary tail was inspected. There was no palpable adenopathy in the axillary tail. The probe was used to check the tail and there was no significant probe activity. We then redirected our attention to the axilla proper. The axilla proper was carefully inspected. There was no blue dye and no blue dye channel seen in the axilla. The axilla was palpated. There was no palpable gross adenopathy. We then used a probe to double check and there was no significant activity within the axilla proper. At this point, we felt confident we had the [place] nodes. The wound was copiously irrigated with normal saline solution one liter. A 10-Somali Srinivasa-Morales drain was inserted through separate stab wound incision. The wound was then closed in two layers using 2-0, 3-0 and 4-0 Vicryl. The drain was secured with 3-0 nylon. Sterile dressings were applied. 20 cc of quarter percent Marcaine was injected into each drain at the conclusion of the procedure. The patient tolerated the procedure well, was awakened and brought to recovery in stable condition. MD DARYL Man/DENNIS /4:00 PM /11:03 AM
[2017-07-23 12:00] VITALS: BP 100/54; PULSE 71; RESP 16; TEMP 97.7; O2SAT 95
[2017-07-23 16:00] VITALS: BP 144/64; PULSE 74; RESP 17; TEMP 98.8; O2SAT 94
--- NOTE | 2017-07-23 18:53 | PD.CONS ---
[facility] By [facility] Phys[facility] Debbie Thornton MD Diagnoses: History of Present Illness Mrs. Muse is a 66-year-old female. She came into the hospital for bilateral mastectomy. She has a recent history of left-sided breast cancer and elected to have both breasts removed secondary to strong family history of breast cancer. Her mother and sister both had breast cancer and mastectomies. She has seizure disorder and her last seizure was in 2005. Other pertinent medical conditions are COPD which is not exacerbated and diabetes mellitus type 2. Postop she had hand swelling at the left and then and swelling of the right. Both of these hand swellings occurred with IV infusion so this may represent IV infiltration. Pain control is present but not adequate for patient so we discussed breakthrough pain treatment. No other complaints today. Review of Systems Constitutional: DENIES: Fatigue, Fever, Chills, Night Sweats Endocrine: DENIES: Abnorml menstrual pattern, Heat/cold intolerance, Polydipsia Eyes: DENIES: Blurred vision, Diplopia, Eye inflammation Ears, nose, mouth, throat: DENIES: Tinnitus, Hearing loss, Vertigo, Nasal discharge Respiratory: DENIES: Apneas, Cough, Wheezing, Shortness of breath Cardiovascular: DENIES: Chest pain, Palpitations, Syncope Gastrointestinal: DENIES: Abdominal pain, Black stools, Bloody stools Musculoskeletal: COMPLAINS OF: Muscle aches, Back pain, DENIES: Joint pain, Stiffness Integumentary: COMPLAINS OF: Breast masses, DENIES: Abnormal pigmentation, Pruritus, Rash Hematologic/lymphatic: DENIES: Bruising, Lymphadenopathy Immunologic/allergic: DENIES: Eczema, Urticaria Neurologic: DENIES: Abnormal gait, Headache, Localized weakness, Paresthesias Psychiatric: DENIES: Anxiety, Confusion, Hallucinations Past Family Social History Allergies: Coded Allergies: asparagus (Verified Allergy, Severe, Wheezing, 07/22/17) chocolate flavor (Verified Allergy, Severe, Wheezing, 07/22/17) Past Medical History History of left wrist fracture Seizure disorder Hypertension Osteoarthritis Diabetes mellitus type 2 Depression/anxiety Hypothyroidism COPD Past Surgical History Cholecystectomy Cataract surgery Lens implant Cystocele surgery Tubal Right knee fracture repair Total left knee arthroplasty Reported Medications Reported Meds & Active Scripts Active Metoprolol Tartrate 25 Mg Tab 25 Mg PO BID Reported Senokot (Sennosides) 8.6 Mg Tab 8.6 Mg PO DAILY PRN Humulin R Inj (Insulin Human Regular) 1,000 Unit/10 Ml Vial 1 Units SQ SLIDING SCALE DIR Lantus Solostar Pen Inj (Insulin Glargine) 300 Unit/3 Ml Pen 44 Units SQ DAILY Lantus Solostar Pen Inj (Insulin Glargine) 300 Unit/3 Ml Pen 46 Units SQ HS Furosemide 20 Mg Tab 20 Mg PO WEEKLY Benztropine (Benztropine Mesylate) 0.5 Mg Tab 1 Mg PO DAILY Linzess (Linaclotide) 145 Mcg Cap 145 Mcg PO DAILY Lisinopril 10 Mg Tab 10 Mg PO DAILY Meloxicam 7.5 Mg Tab 7.5 Mg PO BID Olanzapine 10 Mg Tab 10 Mg PO HS Topamax (Topiramate) 50 Mg Tab 50 Mg PO BID Quetiapine (Quetiapine Fumarate) 300 Mg Tab 2 Tab PO HS Lamotrigine 100 Mg Tab 100 Mg PO BID PT STS NOON AND EVENING Nexium (Esomeprazole) 40 Mg Pkt 1 Tab PO DAILY Zoloft (Sertraline HCl) 100 Mg Tab 100 Mg PO DAILY Restasis Opth 0.05% (Cyclosporine Opth 0.05%) 0.05% Emul 1 Drop EACH EYE BID Levothyroxine (Levothyroxine Sodium) 150 Mcg Tab 150 Mcg PO DAILY Fluticasone Nasal [place] 50 Mcg/Act Naspr 50 Mcg EACH NARE BID 50 mcg/spray Active Ordered Medications Administered Medications Medications (Trade) Dose Ordered Sig/Albin Route PRN Reason Start Time Stop Time Status Last Admin Dose Admin Lactated Ringer's 1,000 ml @ 30 mls/hr Q24H PRN IV SEE LABEL COMMENTS 07/22/17 06:45 07/25/17 06:44 07/22/17 06:58 Metoprolol Tartrate (Lopressor) 25 mg OPEN HEARTH FURNACE OPERATOR PRN PO SEE LABEL COMMENTS 07/22/17 06:45 07/25/17 06:44 07/22/17 08:00 Povidone Iodine (Betadine 5% Antisepsis Kit) 1 applic OPEN HEARTH FURNACE OPERATOR PRN EACH NARE SEE LABEL COMMENTS 07/22/17 06:45 07/25/17 06:44 07/22/17 07:05 Chlorhexidine Gluconate (Chlorhexidine 2% Cloth) 3 pack OPEN HEARTH FURNACE OPERATOR PRN TOPICAL SEE LABEL COMMENTS 07/22/17 06:45 07/25/17 06:44 07/22/17 06:45 Lactated Ringer's 1,000 ml @ 100 mls/hr Q10H IV 07/22/17 15:51 07/23/17 15:51 IV Flush (NS Flush) 2 ml BID IVF 07/22/17 21:00 07/23/17 09:00 Oxycodone/ Acetaminophen (Percocet 5-325 Mg) 2 tab Q4H PRN PO PAIN SCALE 6 TO 10 07/22/17 16:00 07/23/17 09:15 Benztropine Mesylate (Cogentin) 1 mg DAILY PO 07/23/17 09:00 07/23/17 09:14 Fluticasone Propionate (Flonase Kapil Spr) 1 spray BID EACH NARE 07/22/17 21:00 07/23/17 11:04 Furosemide (Lasix) 20 mg DAILY PO 07/23/17 09:00 07/23/17 09:12 Lamotrigine (LaMICtal) 100 mg BID PO 07/22/17 21:00 07/23/17 09:14 Levothyroxine Sodium (Synthroid) 150 mcg DAILY PO 07/23/17 09:00 07/23/17 09:13 Lisinopril (Prinivil) 10 mg DAILY PO 07/23/17 09:00 07/23/17 09:13 Meloxicam (Mobic) 7.5 mg BID PO 07/22/17 21:00 07/23/17 09:12 Metoprolol Tartrate (Lopressor) 25 mg BID PO 07/22/17 21:00 07/23/17 09:12 Olanzapine (ZyPREXA) 10 mg HS PO 07/22/17 21:00 07/22/17 22:26 Quetiapine Fumarate (SEROquel) 600 mg HS PO 07/22/17 21:00 07/22/17 22:26 Sertraline HCl (Zoloft) 100 mg DAILY PO 07/23/17 09:00 07/23/17 09:12 Topiramate (Topamax) 50 mg BID PO 07/22/17 21:00 07/23/17 09:12 Insulin Detemir (Levemir Inj) 44 units DAILY SQ 07/23/17 09:00 07/23/17 09:15 Insulin Detemir (Levemir Inj) 46 units HS SQ 07/22/17 21:00 07/22/17 22:40 Insulin Human Regular (NovoLIN R SUPPLEMENTAL SCALE) 1 ACHS SLIDING SCALE SQ 07/22/17 21:00 07/22/17 21:00 Pantoprazole Sodium (Protonix) 40 mg DAILY PO 07/23/17 10:00 07/23/17 11:04 Family History Breast cancer in sister Breast cancer, diabetes mellitus type 2, and rheumatoid arthritis in mother Diabetes mellitus type 2 in father Social History Past history of alcoholism, quit Past history of smoking, quit in 2004 No history of illicit drug abuse Physical Exam Vital Signs Vital Signs Date Time Temp Pulse Resp B/P (MAP) Pulse Ox O2 Delivery O2 Flow Rate FiO2 07/23/17 16:00 98.8 74 17 144/64 (90) 94 07/23/17 12:00 97.7 71 16 100/54 (69) 95 07/23/17 08:00 96.8 75 17 120/54 (76) 92 07/23/17 04:35 98.1 79 18 162/67 (98) 95 07/23/17 00:28 97.8 89 18 125/60 (81) 94 07/22/17 20:22 97.9 90 18 122/56 (78) 93 Physical Exam GENERAL: NAD, A&Ox3 HEAD: Normocephalic. NECK: Supple, trachea midline. No lymphadenopathy. EYES: No scleral icterus. No injection or drainage. CARDIOVASCULAR: Regular rate and rhythm without murmurs, gallops, or rubs. RESPIRATORY: Breath sounds equal bilaterally. No accessory muscle use. GASTROINTESTINAL: Abdomen soft, non-tender, nondistended. MUSCULOSKELETAL: No cyanosis, or edema. Tenderness at chest, chest bandage. SKIN: Warm and dry. NEURO: No focal neurological deficitis. Result Diagram: 07/22/17 1308 07/22/17 1308 Assessment and Plan Problem List: (1) S/P bilateral mastectomy ICD Code: Z90.13 - Acquired absence of bilateral breasts and nipples (2) Breast CA ICD Code: C50.919 - Malignant neoplasm of unspecified site of unspecified female breast Assessment and Plan Assessment and plan 66-year-old female status post bilateral mastectomy Status post bilateral mastectomy Surgery following Continue Percocet for pain When necessary IV Dilaudid added for breakthrough pain Bilateral hand swelling One-time Benadryl provided Discontinue IV fluids, patient prone to infiltrate IVs Follow for improvement Seizure disorder Continue antibiotics Follow clinically Hypertension Resume home treatments Follow blood pressures Diabetes mellitus type 2 Follow blood sugars Insulin sliding scale Diabetic diet Hypothyroidism Continue supplementation Follow as an outpatient COPD No exacerbation As needed breathing treatments DVT prophylaxis Alex Tran MD Jul 23, 2017 18:53
[2017-07-23] MEDS ORDERED: diphenhydrAMINE HCL 50 MG/ML VIAL IV PUSH ONE (19:15)
[2017-07-23] MEDS ORDERED: HYDROmorphone HCL PF 0.5 MG/0.5 ML SYRINGE IV PRN (19:15)
[2017-07-23 20:00] VITALS: BP 130/60; PULSE 81; RESP 20; TEMP 98.3; O2SAT 93
[2017-07-23] MEDS: QUEtiapine FUMARATE 300 MG TAB PO SCH (20:06)
[2017-07-23] MEDS: OLANZapine 10 MG TAB PO SCH (20:07)
[2017-07-24] VITALS: BP 106/51; PULSE 88; RESP 22; TEMP 97.5; O2SAT 93
[2017-07-24 04:00] VITALS: BP 110/56; PULSE 76; RESP 20; TEMP 97.9; O2SAT 94
[2017-07-24 08:00] VITALS: BP 140/67; PULSE 76; RESP 17; TEMP 97.8; O2SAT 97
[2017-07-24] MEDS: MEDIUM DOSE INSULIN NOVOLIN REGULAR SUPPLEMENTAL SCALE SQ SCH (08:00)
[2017-07-24 08:22] LABS: HEMATOCRIT 31.5 % (35.0-46.0); HEMOGLOBIN 10.5 GM/DL (11.6-15.3); MEAN CELL VOLUME 86.9 FL (80.0-100.0); MEAN CORPUSCULAR HGB CONC 33.3 % (32.0-36.0); MEAN PLATELET VOLUME 9.3 FL (7.0-11.0); PLATELET COUNT 169 TH/MM3 (150-450); RED BLOOD COUNT 3.62 MIL/MM3 (4.00-5.30); RED CELL DISTRIBUTION WIDTH 14.4 % (11.6-17.2)
[2017-07-24] MEDS: BENZTROPINE MESYLATE 1 MG TAB PO SCH (08:31)
[2017-07-24] MEDS: TOPIRAMATE 25 MG TAB PO SCH (08:31)
[2017-07-24] MEDS: PANTOPRAZOLE SOD 40 MG DELAYED RELEASE TAB PO SCH (08:32)
[2017-07-24] MEDS: SERTRALINE HCL 100 MG TAB PO SCH (08:32)
[2017-07-24] MEDS: lamoTRIgine 100 MG TAB PO SCH (08:32)
[2017-07-24] MEDS: FUROSEMIDE 20 MG TAB PO SCH (08:32)
[2017-07-24] MEDS: MELOXICAM 7.5 MG TAB PO SCH (08:32)
[2017-07-24] MEDS: METOPROLOL TARTRATE 25 MG TAB PO SCH (08:32)
[2017-07-24] MEDS: LISINOPRIL 10 MG TAB PO SCH (08:32)
[2017-07-24] MEDS: LEVOTHYROXINE SODIUM 150 MCG TAB PO SCH (08:32)
[2017-07-24] MEDS: oxyCODONE/ACETAMINOPHEN 5 MG/325 MG TAB PO PRN (08:33)
[2017-07-24] MEDS: NON-FORMULARY DRUG (Linaclotide (Linzess) 145 MCG) PO SCH (08:35)
[2017-07-24] MEDS: SODIUM CHLORIDE 0.9% FLUSH 5 ML FLUSH IVF SCH (08:35)
[2017-07-24] MEDS: FLUTICASONE PROPIONATE 50 MCG/ACT 16 GM NASAL SPRAY EACH NARE SCH (08:35)
[2017-07-24] MEDS: CYCLOSPORINE OPTH 0.05% EACH EYE SCH (08:36)
[2017-07-24] MEDS: INSULIN DETEMIR 100 UNITS/ML VIAL SQ SCH (08:37)
[2017-07-24] MEDS ORDERED: ENOXAPARIN SODIUM 40 MG/0.4 ML SYRINGE SQ SCH (09:00)
[2017-07-24 09:19] LABS: BICARBONATE 25.7 MEQ/L (21.0-32.0); CALCIUM 8.4 MG/DL (8.5-10.1); CREATININE 0.75 MG/DL (0.50-1.00)
[2017-08-07] MEDS ORDERED: INFL1INJ52 IM (11:54)
== END 2017-07-24 11:19 | disposition home or self-care (01) ==
LOC: HSDC 05:52 → HSDI 15:53 → N07B 17:24
PROVIDERS: ADMIT Surgery Trauma Surgery; ATTEND Surgery Trauma Surgery
DX: C50.912 Malignant neoplasm of unspecified site of left female breast (principal); Z17.0 Estrogen receptor positive status [ER+]; Z80.3 Family history of malignant neoplasm of breast; G40.909 Epilepsy, unspecified, not intractable, without status epilepticus; J44.9 Chronic obstructive pulmonary disease, unspecified; M79.89 Other specified soft tissue disorders; E11.9 Type 2 diabetes mellitus without complications; I10 Essential (primary) hypertension; E03.9 Hypothyroidism, unspecified; Z23 Encounter for immunization; Z87.891 Personal history of nicotine dependence
CPT/HCPCS: 00400; 19303; 36561; 38500; 71010; 76642; 77001; 78195; 80048; 82948; 85025; 85027; 88307; 93005; 94150; 96360; 96361; 96372; A9541; C1788; G0008; G0378; J0131; J0690; J1100; J1644; J1650; J1885; J2250; J2310; J2370; J2405; J2710; J3010; J7120; Q2038; Q9968; 90471; 90686; J1170

== ENCOUNTER 2017-10-25 19:09 | Observation (INO) | payer MEDICARE, MEDICAID ==
[~2017-10-25 19:09] MED LIST changes: -ADVA250A INH; -ERYTOIN10 RIGHT EYE; -FLUT50SP EACH NARE; -FURO20TA PO; -HUMALOG SQ; +INSU-101 SQ; +INSU100V2 SQ; +LANTINJ SQ; -LANTUS2P SQ; -LEVO150T7 PO; +LEVO175T2 PO; -LOSA100T PO; +MEDR4PAK PO; -METF-381 PO; -METO10TA PO; -REST0.05 EACH EYE; -SENN1TAB17 PO; +SENO8.6T5 PO; -TYLETAB34 PO; +VENTAER INH
[2017-10-25] MEDS ORDERED: ACETAMINOPHEN 500 MG CPLT PO PRN (20:30)
[2017-10-25] MEDS ORDERED: ACETAMINOPHEN 325 MG TAB PO PRN (20:30)
[2017-10-25] MEDS ORDERED: ONDANSETRON HCL 4 MG/2 ML VIAL IVP PRN (20:30)
[2017-10-25] MEDS ORDERED: ACETAMINOPHEN/HYDROcodone 325 MG/7.5 MG TAB PO PRN (20:30)
[2017-10-25] MEDS ORDERED: NALOXONE HCL 0.4 MG/ML AMP IV PUSH PRN (20:30)
[2017-10-25] MEDS ORDERED: SODIUM CHLORIDE 0.9% FLUSH 10 ML FLUSH IV FLUSH PRN (20:30)
[2017-10-25] MEDS ORDERED: NITROGLYCERIN 0.4 MG SL 25 TABS/BTL SL PRN (20:30)
[2017-10-25] MEDS ORDERED: DEXTROSE 50% IN WATER 50 ML VIAL(D50) IV PUSH PRN (20:45)
[2017-10-25] MEDS ORDERED: RESP: ALBUTEROL 2.5 MG/IPRATROPIUM 0.5 MG NEB (PRN) NEB (20:45)
[2017-10-25] MEDS ORDERED: GLUCAGON 1 MG/ML VIAL OTHER PRN (20:45)
[2017-10-25] MEDS: INSULIN ASPART SUPPLEMENTAL SCALE SQ SCH (21:00)
[2017-10-25] MEDS: SODIUM CHLORIDE 0.9% FLUSH 10 ML FLUSH IV FLUSH SCH (21:00)
[2017-10-25] MEDS ORDERED: MORPHINE SULFATE 2 MG/ML INJ IV PUSH PRN (22:00)
[2017-10-25] MEDS: RESP: ALBUTEROL 2.5 MG/IPRATROPIUM 0.5 MG NEB (SCH) NEB (22:00)
[2017-10-26] VITALS (12 sets, daily range): BP systolic 108–128; BP diastolic 57–87; PULSE 71–93; RESP 16–18; TEMP 97.1–98.4; O2SAT 97–100
[2017-10-26] MEDS: RESP: ALBUTEROL 2.5 MG/IPRATROPIUM 0.5 MG NEB (SCH) NEB ×4 (03:04→19:40)
[2017-10-26] MEDS ORDERED: DEXTROSE 5% IN WATE 1000ML INJ 1,000 ML IV SCH (04:15)
--- NOTE | 2017-10-26 04:19 | HHI.HP ---
[facility] Debbie Thornton MD Admission Diagnosis Atypical chest pain . Diagnoses: (1) Atypical chest pain (2) Bronchitis Chief Complaint: chest pain Travel History International Travel<30 Days: No Contact w/Intl Traveler <30 Da: No Traveled to Known Affected Are: No History of Present Illness Ms. Muse is a pleasant 67 year old female with breast cancer undergoing chemotherapy with Dr. Knox along with numerous other comorbid conditions (see [facility] for complete list) including type 2 diabetes mellitus, hypertension, and hyperlipidemia who presented to the emergency department in [place] complaining of chest pain. She was transferred to [facility] for evaluation of chest pain and further treatment of bronchitis. The patient is seen in the CDU. She states that she had chemotherapy for breast cancer on Saturday and began have chest discomfort Saturday night. She attributed the chest discomfort to a chemotherapy side effect but became concerned when it persisted through yesterday and then was accompanied by bilateral fingertip numbness. She also developed shortness of breath with exertion that became progressively worse, was accompanied by fatigue, and felt some palpitations as well. She denied nausea, vomiting, or diaphoresis. She reported that she was given nitroglycerin in [place], but it only helped "a little". She states she is currently having chest discomfort of 6-7 out of 10. She says it is not a pain but is more of a pressure and is bandlike across her chest and around her back and feels more like a "heaviness" or a tightness. She denies any history of coronary artery disease or irregular heart rhythms. She denies any history of congestive heart failure. She reports her mother had a myocardial infarction. She reports that she has been sick recently with bronchitis. She's had a productive cough, nasal congestion, runny nose, and sore throat. She denies any body aches, fevers, or chills. She denies nausea, vomiting, or diarrhea. Review of Systems Except as stated in HPI: all other systems reviewed are Neg Past Family Social History Past Medical History Hypothyroidism Breast cancer status post bilateral mastectomy and chemotherapy Seizure disorder with no seizure activity and for years and does not take antiepileptic drugs Migraines Cluster headaches Diabetic peripheral neuropathy Type 2 diabetes mellitus Hypertension Hyperlipidemia DVT left upper extremity 09/12 COPD Asthma Obstructive sleep apnea - has not used CPAP in 2 years Irritable bowel syndrome Gastroesophageal reflux disease Nephrolithiasis Rheumatoid arthritis - currently undergoing a workup for Hepatitis C Depression Anxiety Right patellar fracture . Past Surgical History Bilateral mastectomy Bilateral cataract surgery Right inguinal hernia repair Cholecystectomy Hysterectomy Bilateral tubal ligation Right knee arthroscopy Left knee replacement . Reported Medications Reported Meds & Active Scripts Active Lantus Solostar Pen Inj (Insulin Glargine) 300 Unit/3 Ml Pen 50 Units SQ DIRECTED 50 units AM / 50 units PM Carefine Pen Alvord 31G X 8 mm 31 Gauge X 5/16" Mis Box SQ DIRECTED Use twice daily for Lantus Insulin Medrol Dosepak (Methylprednisolone) 4 Mg Dspk 4 Mg PO DIRECTED Per Pharmacist direction Ventolin Hfa 18 GM Inh (Albuterol Sulfate) 90 Mcg/Act Aer 2 Puff INH Q4-6H PRN Metoprolol Tartrate 25 Mg Tab 25 Mg PO BID Reported Levothyroxine (Levothyroxine Sodium) 175 Mcg Tab 175 Mcg PO DAILY Senokot (Sennosides) 8.6 Mg Tab 8.6 Mg PO DAILY PRN Humulin R Inj (Insulin Human Regular) 1,000 Unit/10 Ml Vial 1 Units SQ SLIDING SCALE DIR Benztropine (Benztropine Mesylate) 0.5 Mg Tab 1 Mg PO DAILY Linzess (Linaclotide) 145 Mcg Cap 145 Mcg PO DAILY Lisinopril 10 Mg Tab 10 Mg PO DAILY Meloxicam 7.5 Mg Tab 7.5 Mg PO BID Olanzapine 10 Mg Tab 10 Mg PO HS Topamax (Topiramate) 50 Mg Tab 50 Mg PO BID Quetiapine (Quetiapine Fumarate) 300 Mg Tab 2 Tab PO HS Lamotrigine 100 Mg Tab 100 Mg PO BID PT STS NOON AND EVENING Nexium (Esomeprazole) 40 Mg Pkt 1 Tab PO DAILY Zoloft (Sertraline HCl) 100 Mg Tab 100 Mg PO DAILY . Allergies: Coded Allergies: asparagus (Verified Allergy, Severe, Wheezing, 09/12/17) chocolate flavor (Verified Allergy, Severe, Wheezing, 09/12/17) docetaxel (Verified Allergy, Severe, Shortness of breath, wheezing, chest pain, facial flushing, 09/12/17) Family History Mother with rheumatoid arthritis, diabetes mellitus, and myocardial infarction Father with Diabetes Mellitus Sister with diabetes mellitus, breast cancer, and CVA Social History Tobacco: Smoked from age [age] - quit when she was diagnosed with COPD Alcohol: Heavy drinker in the 90s but now only very rare social use Illicit Drugs: Denies . . Physical Exam Vital Signs Vital Signs Date Time Temp Pulse Resp B/P (MAP) Pulse Ox O2 Delivery O2 Flow Rate FiO2 10/26/17 03:05 Nasal Cannula 2.00 10/26/17 00:30 98.0 93 17 128/63 (84) 98 Physical Exam GENERAL: This is a pleasant female patient, in no apparent distress. SKIN: No rashes. Cool and dry. HEAD: Atraumatic. Normocephalic. Alopecia noted. EYES: No scleral icterus. No injection or drainage. ENT: Nose without bleeding, purulent drainage. NECK: Trachea midline. No JVD. CARDIOVASCULAR: Regular rate and rhythm without murmurs, gallops, or rubs. RESPIRATORY: Clear to auscultation. Breath sounds equal bilaterally. No wheezes , rales, or rhonchi. GASTROINTESTINAL: Abdomen soft, non-tender, nondistended. No guarding. MUSCULOSKELETAL: Extremities without clubbing, cyanosis, or edema. No calf tenderness. NEUROLOGICAL: Awake and alert. Motor and sensory grossly within normal limits. Normal speech. . Laboratory Laboratory Tests Test 10/25/17 16:35 White Blood Count 6.4 TH/MM3 Red Blood Count 3.68 MIL/MM3 Hemoglobin 10.3 GM/DL Hematocrit 31.7 % Mean Corpuscular Volume 86.1 FL Mean Corpuscular Hemoglobin 28.0 PG Mean Corpuscular Hemoglobin Concent 32.5 % Red Cell Distribution Width 16.5 % Platelet Count 208 TH/MM3 Mean Platelet Volume 9.7 FL Immature Granulocyte % (Auto) 0.8 % Neutrophils (%) (Auto) 69.1 % Lymphocytes (%) (Auto) 22.9 % Monocytes (%) (Auto) 4.5 % Eosinophils (%) (Auto) 1.9 % Basophils (%) (Auto) 0.8 % Immature Granulocyte # (Auto) 0.1 TH/MM3 Neutrophils # (Auto) 4.5 TH/MM3 Lymphocytes # (Auto) 1.5 TH/MM3 Monocytes # (Auto) 0.3 TH/MM3 Eosinophils # (Auto) 0.1 TH/MM3 Basophils # (Auto) 0.1 TH/MM3 CBC Comment DIFF FINAL Differential Comment Prothrombin Time 10.5 SEC Prothromb Time International Ratio 1.0 RATIO Activated Partial Thromboplast Time 26.2 SEC Blood Urea Nitrogen 12 MG/DL Creatinine 0.70 MG/DL Random Glucose 94 MG/DL Total Protein 7.4 GM/DL Albumin 3.3 GM/DL Calcium Level 8.8 MG/DL Magnesium Level 1.8 MG/DL Alkaline Phosphatase 93 U/L Aspartate Amino Transf (AST/SGOT) 47 U/L Alanine Aminotransferase (ALT/SGPT) 43 U/L Total Bilirubin 0.2 MG/DL Sodium Level 140 MEQ/L Potassium Level 4.2 MEQ/L Chloride Level 110 MEQ/L Carbon Dioxide Level 25.0 MEQ/L Anion Gap 5 MEQ/L Estimat Glomerular Filtration Rate 83 ML/MIN Total Creatine Kinase 60 U/L Troponin I LESS THAN 0.02 NG/ML B-Type Natriuretic Peptide 8 PG/ML . Imaging Last [address] Angiography 10/25/17 1741 Signed Impressions: Service Date/Time: Wednesday, October 25, 2017 18:13 - CONCLUSION: 1. Negative for pulmonary embolus. Peribronchial thickening most characteristic of bronchitis. Minimal subsegmental airspace disease left upper lobe. Олег Albert MD Chest X-Ray 10/25/17 1624 Signed Impressions: Service Date/Time: Wednesday, October 25, 2017 16:43 - CONCLUSION: No acute disease. Hunter Brock MD FACR Caprini VTE Risk Assessment Caprini VTE Risk Assessment: Mod/High Risk (score >= 2) Caprini Risk Assessment Model Point Value = 1 Point Value = 2 Point Value = 3 Point Value = 5 Age 41-60 Minor surgery BMI > 25 kg/m2 Swollen legs Varicose veins or History of unexplained or recurrent spontaneous Oral contraceptives or hormone replacement Sepsis (< 1 month) Serious lung disease, including pneumonia (< 1 month) Abnormal pulmonary function Acute myocardial infarction Congestive heart failure (< 1 month) History of inflammatory bowel disease Medical patient at bed rest Age 61-74 Arthroscopic surgery Major open surgery (> 45 min) Laparoscopic surgery (> 45 min) Malignancy Confined to bed (> 72 hours) Immobilizing plaster cast Central venous access Age >= 75 History of VTE Family history of VTE Factor V Leiden Prothrombin [id number] Lupus anticoagulant Anticardiolipin antibodies Elevated serum homocysteine Heparin-induced thrombocytopenia Other congenital or acquired thrombophilia Stroke (< 1 month) Elective arthroplasty Hip, pelvis, or leg fracture Acute spinal cord injury (< 1 month) Prophylaxis Regimen Total Risk Factor Score Risk Level Prophylaxis Regimen 0-1 Low Early ambulation 2 Moderate Order ONE of the following: *Sequential Compression Device (SCD) *Heparin 5000 units SQ BID 3-4 Higher Order ONE of the following medications: *Heparin 5000 units SQ TID *Enoxaparin/Lovenox 40 mg SQ daily (WT < 150 kg, CrCl > 30 mL/min) *Enoxaparin/Lovenox 30 mg SQ daily (WT < 150 kg, CrCl > 10-29 mL/min) *Enoxaparin/Lovenox 30 mg SQ BID (WT < 150 kg, CrCl > 30 mL/min) AND/OR *Sequential Compression Device (SCD) 5 or more Highest Order ONE of the following medications: *Heparin 5000 units SQ TID (Preferred with Epidurals) *Enoxaparin/Lovenox 40 mg SQ daily (WT < 150 kg, CrCl > 30 mL/min) *Enoxaparin/Lovenox 30 mg SQ daily (WT < 150 kg, CrCl > 10-29 mL/min) *Enoxaparin/Lovenox 30 mg SQ BID (WT < 150 kg, CrCl > 30 mL/min) AND *Sequential Compression Device (SCD) Assessment and Plan Problem List: (1) Atypical chest pain ICD Code: R07.89 - Other chest pain (2) Bronchitis ICD Code: J40 - Bronchitis, not specified as acute or chronic Assessment and Plan Ms. Muse is a pleasant 67 year old female with breast cancer undergoing chemotherapy with Dr. Knox along with numerous other comorbid conditions (see [facility] for complete list) including type 2 diabetes mellitus, hypertension, and hyperlipidemia who presented to the emergency department in [place] complaining of chest pain. She was transferred to [facility] for evaluation of chest pain and further treatment of bronchitis. Atypical chest pain - Check serial EKGs and cardiac enzymes to rule out ACS - initial 12 lead EKG personally reviewed - hr 90, sinus rhythm with no ischemic changes - initial troponin I less than 0.02 - continue to follow results - The patient has multiple risk factors for coronary artery disease including diabetes, hypertension, hyperlipidemia, and family history - If negative workup for ACS, consider Lexiscan myocardial perfusion study - patient is unable to tolerate treadmill evaluation due to bilateral pain - patient will be kept NPO - Nitroglycerin 0.4 mg sublingual when necessary for chest pain - Morphine 2 mg IV every 3 hours as needed for pain - Continuous cardiac telemetry to monitor for arrhythmias Bronchitis - CT angiogram negative for PE. Peribronchial thickening most characteristic of bronchitis was noted. Minimal subsegmental airspace disease left upper lobe noted. - Levaquin 750 mg by mouth - Duo nebulizers every 6 hours and every 2 hours as needed for shortness of breath/wheezing - Supplemental oxygen titrated to maintain oxygen saturation greater than 92% Type 2 Diabetes Mellitus - Accu-Cheks before meals and at bedtime with low-dose NovoLog sliding scale coverage - Hypoglycemia protocol - Monitor trends and blood glucose readings and adjust treatments as indicated - D5W at 84 cc/hr while NPO DVT prophylaxis - Lovenox 40 mg subcutaneous every 24 hours Awaiting home medication reconciliation to be completed so that home meds can be resumed Discussed Condition With Dr. Alexis and patient . Zora Wynne Oct 26, 2017 04:19
[2017-10-26] MEDS: INSULIN ASPART SUPPLEMENTAL SCALE SQ SCH ×4 (08:00→22:08)
[2017-10-26] MEDS: INSULIN DETEMIR 100 UNITS/ML VIAL SQ SCH ×3 (09:00→22:04)
[2017-10-26] MEDS ORDERED: lamoTRIgine 100 MG TAB PO SCH (09:00)
[2017-10-26] MEDS ORDERED: PATIENT OWN MEDICATION (Linaclotide (Linzess) 145 MCG) PO SCH (09:00)
[2017-10-26] MEDS: SODIUM CHLORIDE 0.9% FLUSH 10 ML FLUSH IV FLUSH SCH ×2 (09:00→22:04)
[2017-10-26] MEDS: BENZTROPINE MESYLATE 1 MG TAB PO SCH (10:02)
[2017-10-26] MEDS: ASPIRIN 325 MG TAB PO SCH (10:03)
[2017-10-26] MEDS: SERTRALINE HCL 100 MG TAB PO SCH (10:04)
[2017-10-26] MEDS: LISINOPRIL 10 MG TAB PO SCH (10:04)
[2017-10-26] MEDS: TOPIRAMATE 25 MG TAB PO SCH ×2 (10:05→22:04)
[2017-10-26] MEDS: METOPROLOL TARTRATE 25 MG TAB PO SCH ×2 (10:05→22:06)
[2017-10-26] MEDS: PANTOPRAZOLE SOD 40 MG DELAYED RELEASE TAB PO SCH (10:05)
[2017-10-26] MEDS: lamoTRIgine 100 MG TAB PO SCH (10:06)
[2017-10-26] MEDS: LEVOTHYROXINE SODIUM 75 MCG TAB PO SCH (10:08)
[2017-10-26] MEDS: LEVOTHYROXINE SODIUM 100 MCG TAB PO SCH (10:08)
[2017-10-26 10:34] LABS: BASOPHIL % 0.8 % (0.0-2.0); EOSINOPHIL # 0.1 TH/MM3 (0-0.4); EOSINOPHIL % 1.9 % (0.0-4.0); HEMATOCRIT 30.8 % (35.0-46.0); HEMOGLOBIN 10.3 GM/DL (11.6-15.3); LYMPH % 26.8 % (9.0-44.0); LYMPHOCYTE # 1.2 TH/MM3 (1.0-4.8); MEAN CELL VOLUME 83.4 FL (80.0-100.0); MEAN CORPUSCULAR HGB CONC 33.6 % (32.0-36.0); MEAN PLATELET VOLUME 7.1 FL (7.0-11.0); MONO % 3.7 % (0.0-8.0); MONOCYTE # 0.2 TH/MM3 (0-0.9); NEUT % 66.8 % (16.0-70.0); PLATELET COUNT 182 TH/MM3 (150-450); RED BLOOD COUNT 3.69 MIL/MM3 (4.00-5.30); WHITE BLOOD COUNT 4.5 TH/MM3 (4.0-11.0)
[2017-10-26 10:51] LABS: BICARBONATE 26.6 MEQ/L (21.0-32.0); CALCIUM 9.1 MG/DL (8.5-10.1); CREATININE 0.6 MG/DL (0.50-1.00)
[2017-10-26 10:56] LABS: TROPONIN I LESS THAN 0.02 NG/ML (0.02-0.05)
--- NOTE | 2017-10-26 11:04 | HHI.PR ---
Subjective Remarks F/U CP. Still with squeezing chest discomfort dw RN Objective Vitals Vital Signs Date Time Temp Pulse Resp B/P (MAP) Pulse Ox O2 Delivery O2 Flow Rate FiO2 10/26/17 07:24 97.1 84 18 128/65 (86) 100 10/26/17 04:24 85 10/26/17 04:19 98.4 84 16 124/58 (80) 97 10/26/17 03:05 Nasal Cannula 2.00 10/26/17 00:30 98.0 93 17 128/63 (84) 98 Result Diagram: 10/26/17 1020 10/26/17 1020 Objective Remarks GENERAL: This is a pleasant female patient, in no apparent distress. SKIN: No rashes. Cool and dry. CARDIOVASCULAR: Regular rate and rhythm without murmurs, gallops, or rubs. RESPIRATORY: Clear to auscultation. Breath sounds equal bilaterally. No wheezes , rales, or rhonchi. GASTROINTESTINAL: Abdomen soft, non-tender, nondistended. No guarding. MUSCULOSKELETAL: Extremities without clubbing, cyanosis, or edema. No calf tenderness. NEUROLOGICAL: Awake and alert. Motor and sensory grossly within normal limits. Normal speech. Procedures none A/P Problem List: (1) Atypical chest pain ICD Code: R07.89 - Other chest pain (2) Bronchitis ICD Code: J40 - Bronchitis, not specified as acute or chronic Assessment and Plan Ms. Muse is a pleasant 67 year old female with breast cancer undergoing chemotherapy with Dr. Knox along with numerous other comorbid conditions (see [facility] for complete list) including type 2 diabetes mellitus, hypertension, and hyperlipidemia who presented to the emergency department in [place] complaining of chest pain. She was transferred to [facility] for evaluation of chest pain and further treatment of bronchitis. Atypical chest pain - Ruling out for [place] - The patient has multiple risk factors for coronary artery disease including diabetes, hypertension, hyperlipidemia, and family history - If negative workup for ACS, consider Lexiscan myocardial perfusion study - patient is unable to tolerate treadmill evaluation due to bilateral pain - patient will be kept NPO - Nitroglycerin 0.4 mg sublingual when necessary for chest pain. Asa - Morphine 2 mg IV every 3 hours as needed for pain - Continuous cardiac telemetry to monitor for arrhythmias Bronchitis - CT angiogram negative for PE. Peribronchial thickening most characteristic of bronchitis was noted. Minimal subsegmental airspace disease left upper lobe noted. - Levaquin 750 mg by mouth - Duo nebulizers every 6 hours and every 2 hours as needed for shortness of breath/wheezing - Supplemental oxygen titrated to maintain oxygen saturation greater than 92% - steroids Type 2 Diabetes Mellitus - Accu-Cheks before meals and at bedtime with low-dose NovoLog sliding scale coverage - Hypoglycemia protocol - Monitor trends and blood glucose readings and adjust treatments as indicated - D5W at 84 cc/hr while NPO - restart Lantus 1/2 of usual dose to be given this morning DVT prophylaxis - Lovenox 40 mg subcutaneous every 24 hours Discharge Planning Discharge if stress test negative Callum Duarte MD Oct 26, 2017 11:04
[2017-10-26] MEDS ORDERED: LEVA750T9 PO (13:57)
[2017-10-26] MEDS ORDERED: REGADENOSON INJ 0.4 MG/5 ML SYR ONE (15:03)
[2017-10-26 15:12] LABS: TROPONIN I LESS THAN 0.02 NG/ML (0.02-0.05)
--- NOTE | 2017-10-26 16:40 | RADRPT ---
EXAM DATE/TIME: 10/26/2017 15:20 [place] COMPARISON: No previous studies available for comparison. INDICATIONS : Substernal chest pain with dyspnea. Angina. DOSE: 25.4 mCi Tc99m Myoview at stress. 8.5 mCi Tc99m Myoview at rest. 0.4 mg Lexiscan STRESS SYMPTOMS: Shortness of breath, chest pressure. EJECTION FRACTION: 68% MEDICAL HISTORY : Chronic obstructive pulmonary disease. Diabetes mellitus type 2. Hypothyroidism. Hepatitis C. SURGICAL HISTORY : Hysterectomy. Cholecystectomy. Total knee replacement, left. Hernia repair. ENCOUNTER: Initial ACUITY: 1 day PAIN SCALE: 6/10 LOCATION: Substernal chest TECHNIQUE: The patient underwent pharmacologic stress with infusion of prescribed dose. Continuous ECG tracing was monitored during stress. Gated SPECT imaging was performed after stress and conventional SPECT i maging was performed at rest. The examination was performed on a SPECT/CT scanner, both attenuation and non-corrected datasets were reviewed. FINDINGS: DISTRIBUTION: The maximum perfused segment at stress is in the lateral wall. PERFUSION STUDY: The pattern of perfusion at stress is within normal limits. GATED STUDY: There is intact wall motion and thickening without hypokinetic or dyskinetic segments. CONCLUSION: No focal wall motion abnormalities. No reversible perfusion defects. RISK CATEGORY: 1- Low Risk. Manish Cortes MD on October 26, 2017 at 16:36 Board Certified Radiologist. This report was verified electronically.
[2017-10-26] MEDS ORDERED: PRED20 PO (17:26)
[2017-10-26] MEDS ORDERED: CHOL1000 PO (17:26)
[2017-10-26] MEDS: predniSONE 20 MG TAB PO SCH (17:41)
[2017-10-26] MEDS: CHOLECALCIFEROL (VIT D3) 1000 UNIT TAB PO SCH (17:41)
[2017-10-26] MEDS: LEVOFLOXACIN 750 MG TAB PO SCH (17:41)
[2017-10-26] MEDS ORDERED: OLANZapine 10 MG TAB PO SCH (21:00)
[2017-10-26] MEDS ORDERED: QUEtiapine FUMARATE 300 MG TAB PO SCH (21:00)
[2017-10-27] VITALS (9 sets, daily range): BP systolic 98–118; BP diastolic 55–77; PULSE 84–101; RESP 17–18; TEMP 97.2–98.6; O2SAT 94–98
[2017-10-27] MEDS: RESP: ALBUTEROL 2.5 MG/IPRATROPIUM 0.5 MG NEB (SCH) NEB ×3 (02:57→16:20)
[2017-10-27] MEDS: LEVOTHYROXINE SODIUM 100 MCG TAB PO SCH (06:07)
[2017-10-27] MEDS: LEVOTHYROXINE SODIUM 75 MCG TAB PO SCH (06:07)
[2017-10-27] MEDS ORDERED: PNEUMOCOCCAL POLYVALENT INJ 25 MCG/0.5 ML SYR IM ONE (09:00)
[2017-10-27] MEDS ORDERED: ENOXAPARIN SODIUM 40 MG/0.4 ML SYRINGE SQ SCH (09:00)
[2017-10-27] MEDS: LISINOPRIL 10 MG TAB PO SCH (09:30)
[2017-10-27] MEDS: CHOLECALCIFEROL (VIT D3) 1000 UNIT TAB PO SCH (09:30)
[2017-10-27] MEDS: METOPROLOL TARTRATE 25 MG TAB PO SCH (09:30)
[2017-10-27] MEDS: ASPIRIN 325 MG TAB PO SCH (09:30)
[2017-10-27] MEDS: PANTOPRAZOLE SOD 40 MG DELAYED RELEASE TAB PO SCH (09:31)
[2017-10-27] MEDS: LEVOFLOXACIN 750 MG TAB PO SCH (09:31)
[2017-10-27] MEDS: SERTRALINE HCL 100 MG TAB PO SCH (09:31)
[2017-10-27] MEDS: lamoTRIgine 100 MG TAB PO SCH (09:31)
[2017-10-27] MEDS: predniSONE 20 MG TAB PO SCH (09:31)
[2017-10-27] MEDS: TOPIRAMATE 25 MG TAB PO SCH (09:31)
[2017-10-27] MEDS: BENZTROPINE MESYLATE 1 MG TAB PO SCH (09:31)
[2017-10-27] MEDS: SODIUM CHLORIDE 0.9% FLUSH 10 ML FLUSH IV FLUSH SCH (09:34)
[2017-10-27] MEDS: INSULIN DETEMIR 100 UNITS/ML VIAL SQ SCH (09:34)
[2017-10-27] MEDS ORDERED: PADIMATE (CHAPSTICK) 4.5 GM TUBE TOPICAL PRN (10:00)
[2017-10-27] MEDS: INSULIN ASPART SUPPLEMENTAL SCALE SQ SCH ×3 (10:08→17:53)
[2017-10-27] MEDS ORDERED: PADIMATE (CHAPSTICK) 4.5 GM TUBE TOPICAL ONE (10:30)
--- NOTE | 2017-10-27 10:42 | HHI.PR ---
Subjective Remarks Follow-up bronchitis/pneumonia. Patient complaining of dyspnea on exertion. Passed oxygen walk test. Discussed with nursing staff Objective Vitals Vital Signs Date Time Temp Pulse Resp B/P (MAP) Pulse Ox O2 Delivery O2 Flow Rate FiO2 10/27/17 08:32 95 Nasal Cannula 2.00 10/27/17 07:32 98.0 94 18 98/55 (69) 97 10/27/17 04:24 98.0 84 17 110/60 (77) 98 10/27/17 04:00 84 10/27/17 00:15 86 10/26/17 23:59 97.9 85 17 108/57 (74) 98 10/26/17 20:35 97.9 93 17 125/69 (87) 98 10/26/17 20:00 90 10/26/17 19:41 98 Nasal Cannula 2.00 10/26/17 18:15 85 10/26/17 12:00 71 10/26/17 11:28 98.3 82 18 122/87 (99) 97 I/O 10/26/17 10/26/17 10/26/17 10/27/17 10/27/17 10/27/17 07:00 15:00 23:00 07:00 15:00 23:00 Intake Total 1000 ml 720 ml Output Total 1000 ml Balance -1000 ml 1000 ml 720 ml Intake Oral 720 ml IV Total 1000 ml Output Urine Total 1000 ml # Voids 1 2 Result Diagram: 10/26/17 1020 10/26/17 1020 Imaging Last Impressions Myocardial Perfusion Scan Nuc Med 10/26/17 0000 Signed Impressions: Service Date/Time: Thursday, October 26, 2017 15:20 - CONCLUSION: No focal wall motion abnormalities. No reversible perfusion defects. RISK CATEGORY: 1- Low Risk. Manish Cortes MD Objective Remarks GENERAL: This is a pleasant female patient, in no apparent distress. SKIN: No rashes. Cool and dry. CARDIOVASCULAR: Regular rate and rhythm without murmurs, gallops, or rubs. RESPIRATORY: Clear to auscultation. Breath sounds equal bilaterally. No wheezes , rales, or rhonchi. GASTROINTESTINAL: Abdomen soft, non-tender, nondistended. No guarding. MUSCULOSKELETAL: Extremities without clubbing, cyanosis, or edema. No calf tenderness. NEUROLOGICAL: Awake and alert. Motor and sensory grossly within normal limits. Normal speech. Procedures none A/P Problem List: (1) Atypical chest pain ICD Code: R07.89 - Other chest pain (2) Bronchitis ICD Code: J40 - Bronchitis, not specified as acute or chronic Assessment and Plan Ms. Muse is a pleasant 67 year old female with breast cancer undergoing chemotherapy with Dr. Knox along with numerous other comorbid conditions (see [facility] for complete list) including type 2 diabetes mellitus, hypertension, and hyperlipidemia who presented to the emergency department in [place] complaining of chest pain. She was transferred to [facility] for evaluation of chest pain and further treatment of bronchitis. Atypical chest pain secondary to copious/pneumonia. Recent ruled out for [place] with negative stress test Bronchitis/pneumonia. Stable continue Levaquin, nebulizations, steroids and as needed oxygen. Repeat chest x-ray in 6 weeks Type 2 Diabetes Mellitus. Stable continue Lantus with sliding scale coverage. Hypoglycemia protocol DVT prophylaxis - Lovenox 40 mg subcutaneous every 24 hours Discharge Planning Discharge patient to home Condition on discharge: Improved Regular Diet as tolerated Ad Kayla activity no driving Rx written: Levaquin, prednisone and vitamin D Follow-up with primary care physician Callum Duarte MD Oct 27, 2017 10:42
--- NOTE | 2017-10-28 19:03 | EKG ---
Date Performed: 10/27/2017 Time Performed: 17:37:50 PTAGE: 67 years EKG: Sinus rhythm Since previous tracing, no significant change noted NORMAL ECG PREVIOUS TRACING : 07/22/2017 06.55 DOCTOR: Antoni Guerrero Interpretating Date/Time 10/28/2017 19:01:17
== END 2017-10-27 19:30 | disposition home or self-care (01) ==
LOC: NEDDLT 10-26 01:46 → NEPHCDU 10-26 01:56
PROVIDERS: ADMIT Hospitalist; ATTEND Hospitalist
DX: R07.89 Other chest pain (principal); J44.0 Chronic obstructive pulmonary disease with (acute) lower respiratory infection; J18.9 Pneumonia, unspecified organism; I10 Essential (primary) hypertension; E78.5 Hyperlipidemia, unspecified; E11.649 Type 2 diabetes mellitus with hypoglycemia without coma; G47.33 Obstructive sleep apnea (adult) (pediatric); G40.909 Epilepsy, unspecified, not intractable, without status epilepticus; K21.9 Gastro-esophageal reflux disease without esophagitis; K58.9 Irritable bowel syndrome, unspecified; E11.42 Type 2 diabetes mellitus with diabetic polyneuropathy; E03.9 Hypothyroidism, unspecified; C50.919 Malignant neoplasm of unspecified site of unspecified female breast; M06.9 Rheumatoid arthritis, unspecified; Z92.21 Personal history of antineoplastic chemotherapy; Z90.13 Acquired absence of bilateral breasts and nipples; Z87.891 Personal history of nicotine dependence; Z87.442 Personal history of urinary calculi; Z90.710 Acquired absence of both cervix and uterus; Z96.652 Presence of left artificial knee joint; Z82.49 Family history of ischemic heart disease and other diseases of the circulatory system; Z23 Encounter for immunization
CPT/HCPCS: 71045; 71275; 78452; 80048; 80053; 82550; 82948; 83735; 83880; 84484; 85025; 85610; 85730; 90732; 93005; 93017; 94618; 94640; 94664; 96360; 96361; 96365; 96372; 97162; 99285; A9502; G0378; G8987; G8988; J1650; J1815; J1956; J2785; J7070; J7512; Q9967

== ENCOUNTER 2017-11-01 18:31 | Inpatient (IN) | payer MEDICARE, MEDICAID ==
[~2017-11-01] VITALS: Ht 165.1 cm; Wt 86.2 kg
[~2017-11-01 18:31] MED LIST changes: +CHOL1000 PO; +LEVA750T9 PO; -MEDR4PAK PO; +PRED20 PO
[2017-11-01 18:41] VITALS: BP 131/62; PULSE 97; RESP 20; TEMP 97.9; O2SAT 92
[2017-11-01 18:49] VITALS: BP 131/62; PULSE 93; RESP 20; TEMP 97.9; O2SAT 96
--- NOTE | 2017-11-01 18:49 | PD ---
HPI Chief Complaint: Fall Time Seen by Provider: 18:35 Travel History International Travel<30 days: No Contact w/Intl Traveler<30days: No Traveled to known affect area: No History of Present Illness HPI 67-year-old female with history of hypothyroidism, seizure disorder, hypertension, COPD, asthma, is in between chemotherapy cycles for breast cancer , presents to the emergency department for evaluation following a syncopal episode. Patient states she was trying to have a bowel movement when she became dizzy. She woke up on the floor. The left lower extremity was deformed , between the toilet and the counter. She did strike her head. She reports only left side pain, primarily in the leg, constant. She has received 10 mg of morphine prior to arrival by [facility]. She denies any nausea or vomiting. No chest pain or tightness. She has no other focal deficits or weakness to report at this time. PFSH Past Medical History Arthritis: Yes (RA) Asthma: Yes Blood Disorders: Yes (ANEMIA) Bipolar Disorder: Yes Anxiety: Yes Depression: Yes Heart Rhythm Problems: No Cancer: Yes (BREAST) Cardiovascular Problems: Yes (HTN) High Cholesterol: Yes Chemotherapy: Yes Chest Pain: Yes Congestive Heart Failure: No COPD: Yes Diabetes: Yes (dm2) Diminished Hearing: No Endocrine: Yes Gastrointestinal Disorders: Yes (ibs) GERD: Yes Genitourinary: Yes (UTI) Hepatitis: Yes (HEPATITIS C) Hiatal Hernia: Yes Hypertension: Yes Immune Disorder: Yes (LUPUS) Implanted Vascular Access Dvce: Yes Musculoskeletal: Yes (BILATERAL KNEE PAIN ) Neurologic: Yes (seizures, migraines, cluster headaches) Psychiatric: Yes Reproductive: No Respiratory: Yes (COPD) Migraines: Yes Radiation Therapy: No Seizures: Yes Sleep Apnea: Yes Thyroid Disease: Yes (HYPOTHYROID) Menopausal: Yes Tubal Ligation: Yes Past Surgical History Abdominal Surgery: Yes (RIGHT INGUINAL HERNIA) AICD: No Body Medical Devices: knee and new infusaport Cardiac Surgery: No Cholecystectomy: Yes Ear Surgery: No Endocrine Surgery: No Eye Surgery: Yes (BILATERAL CATARACT SURGERY) Genitourinary Surgery: No Gynecologic Surgery: Yes (HYSTERECTOMY; TUBAL LIGATION) Hysterectomy: Yes Joint Replacement: Yes (LT KNEE) Neurologic Surgery: No Oral Surgery: Yes (UPPER FULL DENTURES) Pacemaker: No Thoracic Surgery: No Other Surgery: Yes Social History Alcohol Use: No Tobacco Use: No (former) Substance Use: No Allergies-Medications (Allergen,Severity, Reaction): Coded Allergies: asparagus (Verified Allergy, Severe, Wheezing, 11/01/17) chocolate flavor (Verified Allergy, Severe, Wheezing, 11/01/17) docetaxel (Verified Allergy, Severe, Shortness of breath, wheezing, chest pain, facial flushing, 11/01/17) Reported Meds & Prescriptions Reported Meds & Active Scripts Active Ventolin Hfa 18 GM Inh (Albuterol Sulfate) 90 Mcg/Act Aer 2 Puff INH Q4-6H PRN Metoprolol Tartrate 25 Mg Tab 25 Mg PO BID Reported Zofran (Ondansetron HCl) 8 Mg Tab 8 Mg PO TID PRN Prochlorperazine Maleate 10 Mg Tab 10 Mg PO Q6H PRN Lantus Solostar Pen Inj (Insulin Glargine) 300 Unit/3 Ml Pen 46 Units SQ DAILY IN THE PM Lantus Solostar Pen Inj (Insulin Glargine) 300 Unit/3 Ml Pen 44 Units SQ DAILY IN THE AM Advair Diskus Inh (Fluticasone-Salmeterol Inh) 250-50 Mcg/Blist Aer 1 Puff INH Q12HR Rinse mouth after use. Esomeprazole DR 40 Mg Capdr 40 Mg PO DAILY Levothyroxine (Levothyroxine Sodium) 175 Mcg Tab 175 Mcg PO DAILY Humulin R Inj (Insulin Human Regular) 1,000 Unit/10 Ml Vial 1 Units SQ SLIDING SCALE DIR Benztropine (Benztropine Mesylate) 0.5 Mg Tab 1 Mg PO DAILY Linzess (Linaclotide) 145 Mcg Cap 145 Mcg PO DAILY Lisinopril 10 Mg Tab 10 Mg PO DAILY Meloxicam 7.5 Mg Tab 7.5 Mg PO BID Olanzapine 10 Mg Tab 10 Mg PO HS Topamax (Topiramate) 50 Mg Tab 50 Mg PO BID Quetiapine (Quetiapine Fumarate) 300 Mg Tab 600 Mg PO HS Lamotrigine 100 Mg Tab 100 Mg PO DAILY Zoloft (Sertraline HCl) 100 Mg Tab 100 Mg PO DAILY Review of Systems Except as stated in HPI: all other systems reviewed are Neg Physical Exam Narrative GENERAL: Well-nourished chronically ill-appearing female patient, lying in bed in no acute distress. SKIN: Focused skin assessment warm/dry. Superficial laceration to the bridge of the nose. HEAD: Atraumatic. Normocephalic. EYES: Pupils equal and round. No scleral icterus. No injection or drainage. ENT: No nasal bleeding or discharge. Mucous membranes pink and moist. NECK: Trachea midline. No JVD. Cervical collar is in place. CARDIOVASCULAR: Regular rate and rhythm. No murmur appreciated. RESPIRATORY: No accessory muscle use. Clear to auscultation. Breath sounds equal bilaterally. GASTROINTESTINAL: Abdomen soft, non-tender, nondistended. Hepatic and splenic margins not palpable. MUSCULOSKELETAL: The left lower extremity is in a splint from [facility]. There is swelling and mild deformity of the left distal femur. Skin is intact. No clubbing. No cyanosis. Distal pulses are palpable. Cap refills within normal limits. NEUROLOGICAL: Awake and alert. No obvious cranial nerve deficits. Motor grossly within normal limits. Normal speech. PSYCHIATRIC: Appropriate mood and affect; insight and judgment normal. Data Data Last Documented VS Vital Signs Date Time Temp Pulse Resp B/P (MAP) Pulse Ox O2 Delivery O2 Flow Rate FiO2 11/01/17 19:45 97 16 118/69 (85) 100 Nasal Cannula 2.00 11/01/17 18:49 97.9 Orders Orders Electrocardiogram (11/01/17 18:47) Basic Metabolic Panel (Bmp) (11/01/17 18:47) Complete Blood Count With Diff (11/01/17 18:47) Urinalysis - C+S If Indicated (11/01/17 18:47) Chest, Single Ap (11/01/17 18:47) Ct Brain W/O Iv Contrast(Rout) (11/01/17 18:47) Ct Cerv Spine W/O Contrast (11/01/17 18:47) Ecg Monitoring (11/01/17 18:47) Iv Access Insert/Monitor (11/01/17 18:47) Oximetry (11/01/17 18:47) Sodium Chloride 0.9% Flush (Ns Flush) (11/01/17 19:00) Knee, Complete (4vws) (11/01/17 ) Pelvis, Ap Only (Routine) (11/01/17 ) Femur (Ap & Lat/2vws) (11/01/17 ) Hydromorphone Pf Inj (Dilaudid Pf Inj) (11/01/17 19:30) Consult Orthopedic (11/01/17 ) ^ Knee Immobilizer (11/01/17 20:02) Ice / Cold Pack PRN (11/01/17 20:02) Hydromorphone Pf Inj (Dilaudid Pf Inj) (11/01/17 20:15) Npo After Midnight W/ Po Meds (11/02/17 Breakfast) Labs Laboratory Tests Test 11/01/17 18:53 White Blood Count 4.1 TH/MM3 Red Blood Count 3.07 MIL/MM3 Hemoglobin 8.7 GM/DL Hematocrit 25.9 % Mean Corpuscular Volume 84.3 FL Mean Corpuscular Hemoglobin 28.3 PG Mean Corpuscular Hemoglobin Concent 33.5 % Red Cell Distribution Width 17.2 % Platelet Count 145 TH/MM3 Mean Platelet Volume 8.2 FL Neutrophils (%) (Auto) 81.7 % Lymphocytes (%) (Auto) 14.2 % Monocytes (%) (Auto) 3.1 % Eosinophils (%) (Auto) 0.7 % Basophils (%) (Auto) 0.3 % Neutrophils # (Auto) 3.3 TH/MM3 Lymphocytes # (Auto) 0.6 TH/MM3 Monocytes # (Auto) 0.1 TH/MM3 Eosinophils # (Auto) 0.0 TH/MM3 Basophils # (Auto) 0.0 TH/MM3 CBC Comment DIFF FINAL Differential Comment Blood Urea Nitrogen 18 MG/DL Creatinine 0.68 MG/DL Random Glucose 162 MG/DL Calcium Level 7.9 MG/DL Sodium Level 139 MEQ/L Potassium Level 3.7 MEQ/L Chloride Level 108 MEQ/L Carbon Dioxide Level 24.1 MEQ/L Anion Gap 7 MEQ/L Estimat Glomerular Filtration Rate 86 ML/MIN [facility] Medical Decision Making Medical Screen Exam Complete: Yes Emergency Medical Condition: Yes Medical Record Reviewed: Yes Differential Diagnosis Minor head injury versus intracranial hemorrhage versus fracture versus contusion versus sprain versus dislocation Narrative Course 67-year-old female presents to emergency department for evaluation following a syncopal episode. Patient appears without distress but is reporting significant left-sided pain. There is a deformity of the distal femur. The extremity remains neurovascularly intact. Patient is treated with additional pain control. Laboratory Tests Test 11/01/17 18:53 White Blood Count 4.1 TH/MM3 Red Blood Count 3.07 MIL/MM3 Hemoglobin 8.7 GM/DL Hematocrit 25.9 % Mean Corpuscular Volume 84.3 FL Mean Corpuscular Hemoglobin 28.3 PG Mean Corpuscular Hemoglobin Concent 33.5 % Red Cell Distribution Width 17.2 % Platelet Count 145 TH/MM3 Mean Platelet Volume 8.2 FL Neutrophils (%) (Auto) 81.7 % Lymphocytes (%) (Auto) 14.2 % Monocytes (%) (Auto) 3.1 % Eosinophils (%) (Auto) 0.7 % Basophils (%) (Auto) 0.3 % Neutrophils # (Auto) 3.3 TH/MM3 Lymphocytes # (Auto) 0.6 TH/MM3 Monocytes # (Auto) 0.1 TH/MM3 Eosinophils # (Auto) 0.0 TH/MM3 Basophils # (Auto) 0.0 TH/MM3 CBC Comment DIFF FINAL Differential Comment Blood Urea Nitrogen 18 MG/DL Creatinine 0.68 MG/DL Random Glucose 162 MG/DL Calcium Level 7.9 MG/DL Sodium Level 139 MEQ/L Potassium Level 3.7 MEQ/L Chloride Level 108 MEQ/L Carbon Dioxide Level 24.1 MEQ/L Anion Gap 7 MEQ/L Estimat Glomerular Filtration Rate 86 ML/MIN Lab work is reviewed without any acute concern. Last Impressions Head CT 11/01/171846 Signed Impressions: Service Date/Time: Wednesday, November 01, 2017 19:34 - CONCLUSION: No acute hemorrhage, midline shift or extra-axial fluid collections. The examination is somewhat limited due to patient motion during scanning Harman Davis MD Chest X-Ray 11/01/171846 Signed Impressions: Service Date/Time: Wednesday, November 01, 2017 19:18 - CONCLUSION: Stable increased interstitial markings bilaterally. No pneumothorax status post trauma. Hraman Davis MD Cervical Spine CT 11/01/[id number] Signed Impressions: Service Date/Time: Wednesday, November 01, 2017 19:34 - CONCLUSION: 1. No acute fracture or prevertebral soft tissue swelling. 2. Mild bilateral foraminal narrowing at C6-7. 3. Mild cervical spondylosis at C6-7 and to a lesser extent at C5-6, C4-5 and C7-T1. Harman Davis MD I have discussed the findings with Dr. Kincaid, orthopedic surgeon drier belt conveyor. Patient will be admitted to medicine with a consult placed to him. Patient is placed in knee immobilizer and ice pack is applied. Diagnosis Primary Impression: Vasovagal syncope Additional Impressions: Left displaced femoral neck fracture Minor head injury Qualified Codes: S00.90XA - Unspecified superficial injury of unspecified part of head, initial encounter Admitting Information Admitting Physician Requests: Admit Condition: Stable Nai Fields Nov 01, 2017 18:48
[2017-11-01 18:52] VITALS: PULSE 93; RESP 18; O2SAT 96
[2017-11-01] MEDS ORDERED: SODIUM CHLORIDE 0.9% FLUSH 10 ML FLUSH IVF PRN (19:00)
[2017-11-01] MEDS ORDERED: ADVA250A INH (19:21)
[2017-11-01] MEDS ORDERED: LANTINJ SQ ×2 (19:21)
[2017-11-01] MEDS ORDERED: ZOFR8TAB PO (19:21)
[2017-11-01] MEDS ORDERED: ESOM1CAP16 PO (19:21)
[2017-11-01] MEDS ORDERED: PROC10TA PO (19:21)
[2017-11-01] MEDS ORDERED: HYDROmorphone HCL PF 2 MG/ML VIAL IV PUSH ONE ×2 (19:30→20:15)
[2017-11-01 19:33] LABS: AUTOMATED NEUTROPHIL # 3.3 TH/MM3 (1.8-7.7); BASOPHIL % 0.3 % (0.0-2.0); EOSINOPHIL % 0.7 % (0.0-4.0); HEMATOCRIT 25.9 % (35.0-46.0); HEMOGLOBIN 8.7 GM/DL (11.6-15.3); LYMPH % 14.2 % (9.0-44.0); LYMPHOCYTE # 0.6 TH/MM3 (1.0-4.8); MEAN CELL VOLUME 84.3 FL (80.0-100.0); MEAN CORPUSCULAR HEMOGLOBIN 28.3 PG (27.0-34.0); MEAN CORPUSCULAR HGB CONC 33.5 % (32.0-36.0); MEAN PLATELET VOLUME 8.2 FL (7.0-11.0); MONO % 3.1 % (0.0-8.0); MONOCYTE # 0.1 TH/MM3 (0-0.9); NEUT % 81.7 % (16.0-70.0); PLATELET COUNT 145 TH/MM3 (150-450); RED BLOOD COUNT 3.07 MIL/MM3 (4.00-5.30); RED CELL DISTRIBUTION WIDTH 17.2 % (11.6-17.2); WHITE BLOOD COUNT 4.1 TH/MM3 (4.0-11.0)
--- NOTE | 2017-11-01 19:43 | RADRPT ---
EXAM DATE/TIME: 11/01/2017 19:34 [facility] COMPARISON: No previous studies available for comparison. INDICATIONS : Head pain from fall. RADIATION DOSE: 67.03 CTDIvol (mGy) ; Tabletop CT Head MEDICAL HISTORY : Hypothyroidism. Seizures. Chronic obstructive pulmonary disease. SURGICAL HISTORY : Hernia sx, Knee sx ENCOUNTER: Initial ACUITY: 1 day PAIN SCALE: 7/10 LOCATION: Bilateral cranial TECHNIQUE: Multiple contiguous axial images were obtained of the head. Using automated exposure control and adj ustment of the mA and/or kV according to patient size, radiation dose was kept as low as reasonably a chievable to obtain optimal diagnostic quality images. DICOM format image data is available electro nically for review and comparison. FINDINGS: CEREBRUM: The ventricles are normal for age. No evidence of midline shift, mass lesion, or hemorrhage. Acute i nfarction is difficult to rule out due to excessive motion during scanning. No extra-axial fluid col lections are seen. POSTERIOR FOSSA: The cerebellum and brainstem are intact. The 4th ventricle is midline. The cerebellopontine angle i s unremarkable. EXTRACRANIAL: The visualized portion of the orbits is intact. SKULL: The calvaria is intact. No evidence of skull fracture. CONCLUSION: No acute hemorrhage, midline shift or extra-axial fluid collections. The examination is somewhat limited due to patient motion during scanning Harman Davis MD on November 01, 2017 at 19:38 Board Certified Radiologist. This report was verified electronically.
[2017-11-01 19:45] VITALS: BP 118/69; PULSE 97; RESP 16; O2SAT 100
[2017-11-01 19:54] LABS: BICARBONATE 24.1 MEQ/L (21.0-32.0); CALCIUM 7.9 MG/DL (8.5-10.1); CREATININE 0.68 MG/DL (0.50-1.00)
--- NOTE | 2017-11-01 19:56 | RADRPT ---
EXAM DATE/TIME: 11/01/2017 19:34 [facility] COMPARISON: No previous studies available for comparison. INDICATIONS : Neck pain from fall. RADIATION DOSE: 22.32 CTDIvol (mGy) MEDICAL HISTORY : Seizures. Hypothyroidism. Chronic obstructive pulmonary disease. SURGICAL HISTORY : Hernia sx, Knee sx. ENCOUNTER: Initial ACUITY: 1 day PAIN SCALE: 7/10 LOCATION: Bilateral neck region. TECHNIQUE: Volumetric scanning of the cervical spine was performed. Multiplanar reconstructions in the sagittal, coronal and oblique axial planes were performed. Using automated exposure control and adjustment o f the mA and/or kV according to patient size, radiation dose was kept as low as reasonably achievable to obtain optimal diagnostic quality images. DICOM format image data is available electronically f or review and comparison. FINDINGS: No acute fracture or prevertebral soft tissue swelling is noted. Mild cervical spondylosis is noted a t C6-7 and to a lesser extent C5-6 and C4 to 5 and C7-T1. The bony relationship and alignment between C1 and C2 is well maintained. C2-C3: The bony spinal canal is normal in size. No evidence of disc bulge or herniation. The neural forami na are bilaterally patent. C3-C4: The bony spinal canal is normal in size. No evidence of disc bulge or herniation. The neural forami na are bilaterally patent. C4-C5: The bony spinal canal is normal in size. No evidence of disc bulge or herniation. The neural forami na are bilaterally patent. C5-C6: The bony spinal canal is normal in size. No evidence of disc bulge or herniation. The neural forami na are bilaterally patent. C6-C7: Diffuse disc osteophyte complex is noted resulting in mild bilateral foraminal narrowing. No spinal s tenosis or focal disc herniation is noted. C7-T1: The bony spinal canal is normal in size. No evidence of disc bulge or herniation. The neural forami na are bilaterally patent. CONCLUSION: 1. No acute fracture or prevertebral soft tissue swelling. 2. Mild bilateral foraminal narrowing at C6-7. 3. Mild cervical spondylosis at C6-7 and to a lesser extent at C5-6, C4-5 and C7-T1. Harman Davis MD on November 01, 2017 at 19:50 Board Certified Radiologist. This report was verified electronically.
--- NOTE | 2017-11-01 20:27 | RADRPT ---
EXAM DATE/TIME: 11/01/2017 19:18 [facility] COMPARISON: CHEST SINGLE AP, October 25, 2017, 16:43. INDICATIONS : Trauma to chest post fall today MEDICAL HISTORY : Carcinoma, breast. Chronic obstructive pulmonary disease. Diabetes mellitus type 2. Hypothyroid ism. Hepatitis C. SURGICAL HISTORY : Bilateral mastectomy ENCOUNTER: Initial ACUITY: 1 day PAIN SCORE: 0/10 LOCATION: Bilateral chest FINDINGS: Stable increased interstitial markings are noted bilaterally. Right subclavian [id number] has its tip in superior vena cava. No pneumothorax is noted. The heart is stable. CONCLUSION: Stable increased interstitial markings bilaterally. No pneumothorax status post trauma. Harman Davis MD on November 01, 2017 at 20:23 Board Certified Radiologist. This report was verified electronically.
--- NOTE | 2017-11-01 20:58 | RADRPT ---
EXAM DATE/TIME: 11/01/2017 19:13 [facility] COMPARISON: No previous studies available for comparison. INDICATIONS : Trauma to pelvis post fall today MEDICAL HISTORY : None. SURGICAL HISTORY : None. ENCOUNTER: Initial ACUITY: 1 day PAIN SCORE: 0/10 LOCATION: Pelvis FINDINGS: A single frontal view of the pelvis demonstrates no evidence of fracture. The bony pelvic ring is in tact. Bony mineralization is normal. The soft tissues are intact. Mild degenerative changes are not ed involving lumbar spine and bilateral hips. CONCLUSION: No acute fracture or dislocation. Mild degenerative changes involving the lumbar spin e and bilateral hips Harman Davis MD on November 01, 2017 at 20:54 Board Certified Radiologist. This report was verified electronically.
--- NOTE | 2017-11-01 20:59 | RADRPT ---
EXAM DATE/TIME: 11/01/2017 19:13 [facility] COMPARISON: No previous studies available for comparison. INDICATIONS : Left distal femur pain post fall today MEDICAL HISTORY : None. SURGICAL HISTORY : Total knee replacement, left. ENCOUNTER: Initial ACUITY: 1 day PAIN SCORE: 10/10 LOCATION: Left distal femur FINDINGS: There is an acute comminuted displaced fracture involving the left distal femoral shaft. CONCLUSION: Acute comminuted displaced fracture involving the left distal femoral shaft. Harman Davis MD on November 01, 2017 at 20:55 Board Certified Radiologist. This report was verified electronically.
--- NOTE | 2017-11-01 20:59 | RADRPT ---
EXAM DATE/TIME: 11/01/2017 19:21 [facility] COMPARISON: No previous studies available for comparison. INDICATIONS : Left distal femur pain post fall today MEDICAL HISTORY : None. SURGICAL HISTORY : Total knee replacement, left. ENCOUNTER: Initial ACUITY: 1 day PAIN SCORE: 10/10 LOCATION: Left distal femur FINDINGS: Acute displaced comminuted fracture involving left distal femoral shaft. Left total knee replacement is intact. CONCLUSION: Acute displaced comminuted fracture involving the left distal femoral shaft. Harman Davis MD on November 01, 2017 at 20:56 Board Certified Radiologist. This report was verified electronically.
[2017-11-01 21:00] VITALS: BP 106/60; PULSE 100; RESP 16; O2SAT 93
[2017-11-01] MEDS ORDERED: SODIUM CHLORIDE 0.9% FLUSH 10 ML FLUSH IV FLUSH PRN (21:45)
[2017-11-01] MEDS ORDERED: MAGNESIUM HYDROXIDE SUSP 30 ML CUP PO PRN (21:45)
[2017-11-01] MEDS ORDERED: ONDANSETRON HCL 4 MG/2 ML VIAL IVP PRN (21:45)
[2017-11-01] MEDS ORDERED: ACETAMINOPHEN 325 MG TAB PO PRN (21:45)
[2017-11-01] MEDS ORDERED: HYDROmorphone HCL PF 2 MG/ML VIAL IV PUSH PRN (21:45)
[2017-11-01] MEDS ORDERED: LACTULOSE SYRUP 20 GM/30 ML CUP PO PRN (21:45)
[2017-11-01] MEDS ORDERED: BISACODYL 10 MG SUPP RECTAL PRN (21:45)
[2017-11-01] MEDS ORDERED: SENNOSIDES 8.6 MG TAB PO PRN (21:45)
[2017-11-01] MEDS ORDERED: NALOXONE HCL 0.4 MG/ML AMP IV PUSH PRN (21:45)
[2017-11-01 22:19] LABS: BILIRUBIN, URINE NEG (NEG); BLOOD, URINE NEG (NEG); GLUCOSE,URINE NEG (NEG); HYALINE CAST, URINE 1 /lpf (RARE); KETONE, URINE NEG (NEG); MUCUS URINE FEW /lpf (OCC); NITRITE,URINE NEG (NEG); PH, URINE 5.5 (5.0-8.5); SQUAMOUS EPITHELIAL CELL URINE <1 /hpf (0-5); URINE COLOR YELLOW (YELLW/STRAW); URINE LEUKOCYTE ESTERASE NEG (NEG)
[2017-11-01 22:30] VITALS: BP 124/66; PULSE 102; RESP 20; TEMP 98; O2SAT 98
--- NOTE | 2017-11-01 22:34 | HHI.HP ---
[facility] Unknown Admission Diagnosis L femur fracture Diagnoses: Travel History International Travel<30 Days: No Contact w/Intl Traveler <30 Da: No Traveled to Known Affected Are: No History of Present Illness 67-year-old female with breast cancer undergoing chemotherapy with Dr. Knox along with numerous other comorbid conditions including type 2 diabetes mellitus , hypertension and hyperlipidemia presents to the emergency department for evaluation of a syncopal episode. The patient reports that she was sitting on the toilet after having a bowel movement when she felt a "heat" rising up inside her and she felt lightheaded. She states she attempted to stand and felt that he return, became lightheaded and fell. The patient reports hitting her head, face and left side during her fall. She reports pain in her left leg and across the bridge of her nose. Femur x-ray significant for an acute displaced comminuted fracture involving the left distal femoral shaft. Review of Systems Except as stated in HPI: all other systems reviewed are Neg Past Family Social History Past Medical History Hypothyroidism Breast cancer status post bilateral mastectomy and chemotherapy Seizure disorder with no seizure activity and for years and does not take antiepileptic drugs Migraines Cluster headaches Diabetic peripheral neuropathy Type 2 diabetes mellitus Hypertension Hyperlipidemia DVT left upper extremity 09/12 COPD Asthma Obstructive sleep apnea - has not used CPAP in 2 years Irritable bowel syndrome Gastroesophageal reflux disease Nephrolithiasis Rheumatoid arthritis - currently undergoing a workup for Hepatitis C Depression Anxiety Right patellar fracture Past Surgical History Bilateral mastectomy Bilateral cataract surgery Right inguinal hernia repair Cholecystectomy Hysterectomy Bilateral tubal ligation Right knee arthroscopy Left knee replacement Reported Medications Reported Meds & Active Scripts Active Ventolin Hfa 18 GM Inh (Albuterol Sulfate) 90 Mcg/Act Aer 2 Puff INH Q4-6H PRN Metoprolol Tartrate 25 Mg Tab 25 Mg PO BID Reported Zofran (Ondansetron HCl) 8 Mg Tab 8 Mg PO TID PRN Prochlorperazine Maleate 10 Mg Tab 10 Mg PO Q6H PRN Lantus Solostar Pen Inj (Insulin Glargine) 300 Unit/3 Ml Pen 46 Units SQ DAILY IN THE PM Lantus Solostar Pen Inj (Insulin Glargine) 300 Unit/3 Ml Pen 44 Units SQ DAILY IN THE AM Advair Diskus Inh (Fluticasone-Salmeterol Inh) 250-50 Mcg/Blist Aer 1 Puff INH Q12HR Rinse mouth after use. Esomeprazole DR 40 Mg Capdr 40 Mg PO DAILY Levothyroxine (Levothyroxine Sodium) 175 Mcg Tab 175 Mcg PO DAILY Humulin R Inj (Insulin Human Regular) 1,000 Unit/10 Ml Vial 1 Units SQ SLIDING SCALE DIR Benztropine (Benztropine Mesylate) 0.5 Mg Tab 1 Mg PO DAILY Linzess (Linaclotide) 145 Mcg Cap 145 Mcg PO DAILY Lisinopril 10 Mg Tab 10 Mg PO DAILY Meloxicam 7.5 Mg Tab 7.5 Mg PO BID Olanzapine 10 Mg Tab 10 Mg PO HS Topamax (Topiramate) 50 Mg Tab 50 Mg PO BID Quetiapine (Quetiapine Fumarate) 300 Mg Tab 600 Mg PO HS Lamotrigine 100 Mg Tab 100 Mg PO DAILY Zoloft (Sertraline HCl) 100 Mg Tab 100 Mg PO DAILY Allergies: Coded Allergies: asparagus (Verified Allergy, Severe, Wheezing, 11/01/17) chocolate flavor (Verified Allergy, Severe, Wheezing, 11/01/17) docetaxel (Verified Allergy, Severe, Shortness of breath, wheezing, chest pain, facial flushing, 11/01/17) Family History Mother with rheumatoid arthritis, diabetes mellitus, and myocardial infarction Father with Diabetes Mellitus Sister with diabetes mellitus, breast cancer, and CVA Social History Tobacco: Smoked from age [age] - quit when she was diagnosed with COPD Alcohol: Heavy drinker in the 90s but now only very rare social use Illicit Drugs: Denies Physical Exam Vital Signs Vital Signs Date Time Temp Pulse Resp B/P (MAP) Pulse Ox O2 Delivery O2 Flow Rate FiO2 11/01/17 21:00 100 16 106/60 (75) 93 Room Air 11/01/17 19:45 97 16 118/69 (85) 100 Nasal Cannula 2.00 11/01/17 18:52 93 18 96 Nasal Cannula 2.00 11/01/17 18:49 97.9 93 20 131/62 (85) 96 Nasal Cannula 2.00 11/01/17 18:49 77 18 99 Nasal Cannula 2.00 2/2/18 18:41 97.9 97 20 131/62 (99) 92 Physical Exam GENERAL: female sitting up in bed SKIN: No rashes, ecchymoses or lesions. Cool and dry. Small horizontal laceration across the bridge of the nose, hemostatic. HEAD: Atraumatic. Normocephalic. No temporal or scalp tenderness. EYES: Pupils equal round and reactive. Extraocular motions intact. No scleral icterus. No injection or drainage. ENT: Nose without bleeding, purulent drainage or septal hematoma. Throat without erythema, tonsillar hypertrophy or exudate. Uvula midline. Airway patent. NECK: Trachea midline. No JVD or lymphadenopathy. Supple, nontender, no meningeal signs. CARDIOVASCULAR: Regular rate and rhythm without murmurs, gallops, or rubs. RESPIRATORY: Clear to auscultation. Breath sounds equal bilaterally. No wheezes , rales, or rhonchi. GASTROINTESTINAL: Abdomen soft, non-tender, nondistended. No hepato-splenomegaly , or palpable masses. No guarding. MUSCULOSKELETAL: No edema. No calf tenderness. Left lower extremity neurovascularly intact. Swelling with mild deformity just above the left knee. NEUROLOGICAL: Awake and alert. Cranial nerves II through XII intact. Motor and sensory grossly within normal limits. Normal speech. Laboratory Laboratory Tests Test 11/01/17 18:53 11/01/17 21:00 White Blood Count 4.1 Red Blood Count 3.07 Hemoglobin 8.7 Hematocrit 25.9 Mean Corpuscular Volume 84.3 Mean Corpuscular Hemoglobin 28.3 Mean Corpuscular Hemoglobin Concent 33.5 Red Cell Distribution Width 17.2 Platelet Count 145 Mean Platelet Volume 8.2 Neutrophils (%) (Auto) 81.7 Lymphocytes (%) (Auto) 14.2 Monocytes (%) (Auto) 3.1 Eosinophils (%) (Auto) 0.7 Basophils (%) (Auto) 0.3 Neutrophils # (Auto) 3.3 Lymphocytes # (Auto) 0.6 Monocytes # (Auto) 0.1 Eosinophils # (Auto) 0.0 Basophils # (Auto) 0.0 CBC Comment DIFF FINAL Differential Comment Blood Urea Nitrogen 18 Creatinine 0.68 Random Glucose 162 Calcium Level 7.9 Sodium Level 139 Potassium Level 3.7 Chloride Level 108 Carbon Dioxide Level 24.1 Anion Gap 7 Estimat Glomerular Filtration Rate 86 Urine Color YELLOW Urine Turbidity CLEAR Urine pH 5.5 Urine Specific [place] 1.014 Urine Protein TRACE Urine Glucose (UA) NEG Urine Ketones NEG Urine Occult Blood NEG Urine Nitrite NEG Urine Bilirubin NEG Urine Urobilinogen LESS THAN 2.0 Urine Leukocyte Esterase NEG Urine RBC 1 Urine WBC 2 Urine Squamous Epithelial Cells <1 Urine Hyaline Casts 1 Urine Mucus FEW Microscopic Urinalysis Comment CULT NOT INDICATED Result Diagram: 11/01/17185211/01/171852 Caprini VTE Risk Assessment Caprini VTE Risk Assessment: Mod/High Risk (score >= 2) Caprini Risk Assessment Model Point Value = 1 Point Value = 2 Point Value = 3 Point Value = 5 Age 41-60 Minor surgery BMI > 25 kg/m2 Swollen legs Varicose veins or History of unexplained or recurrent spontaneous Oral contraceptives or hormone replacement Sepsis (< 1 month) Serious lung disease, including pneumonia (< 1 month) Abnormal pulmonary function Acute myocardial infarction Congestive heart failure (< 1 month) History of inflammatory bowel disease Medical patient at bed rest Age 61-74 Arthroscopic surgery Major open surgery (> 45 min) Laparoscopic surgery (> 45 min) Malignancy Confined to bed (> 72 hours) Immobilizing plaster cast Central venous access Age >= 75 History of VTE Family history of VTE Factor V Leiden Prothrombin [id number] Lupus anticoagulant Anticardiolipin antibodies Elevated serum homocysteine Heparin-induced thrombocytopenia Other congenital or acquired thrombophilia Stroke (< 1 month) Elective arthroplasty Hip, pelvis, or leg fracture Acute spinal cord injury (< 1 month) Prophylaxis Regimen Total Risk Factor Score Risk Level Prophylaxis Regimen 0-1 Low Early ambulation 2 Moderate Order ONE of the following: *Sequential Compression Device (SCD) *Heparin 5000 units SQ BID 3-4 Higher Order ONE of the following medications: *Heparin 5000 units SQ TID *Enoxaparin/Lovenox 40 mg SQ daily (WT < 150 kg, CrCl > 30 mL/min) *Enoxaparin/Lovenox 30 mg SQ daily (WT < 150 kg, CrCl > 10-29 mL/min) *Enoxaparin/Lovenox 30 mg SQ BID (WT < 150 kg, CrCl > 30 mL/min) AND/OR *Sequential Compression Device (SCD) 5 or more Highest Order ONE of the following medications: *Heparin 5000 units SQ TID (Preferred with Epidurals) *Enoxaparin/Lovenox 40 mg SQ daily (WT < 150 kg, CrCl > 30 mL/min) *Enoxaparin/Lovenox 30 mg SQ daily (WT < 150 kg, CrCl > 10-29 mL/min) *Enoxaparin/Lovenox 30 mg SQ BID (WT < 150 kg, CrCl > 30 mL/min) AND *Sequential Compression Device (SCD) Assessment and Plan Assessment and Plan Assessment/plan: 1. Fall/left femur fracture Fall likely vasovagal Femur x-ray significant for acute displaced comminuted fracture involving the left distal femur CT of the head and cervical spine without acute process Pelvic x-ray negative for acute process Orthopedic surgery consulted, appreciate assistance Dilaudid for pain Nothing by mouth 2. Diabetes mellitus Holding home Lantus as patient currently nothing by mouth Sliding scale insulin Monitor blood glucose 3. Hypertension Continue metoprolol, lisinopril 4. Seizure disorder Continue Lamictal and Topamax 5. Depression/anxiety Continue Zoloft, olanzapine and quetiapine 6. Hypothyroidism Continue home Synthroid 7. COPD Continue home Advair DuoNebs FEN NPO Electrolytes: monitor and replete prn NS at 100 cc/hr Holding pharmacologic anticoagulation in anticipation of operative intervention tomorrow Physician Certification 2 Midnight Certification Type: Admission for Inpatient Services Order for Inpatient Services The services are ordered in accordance with Medicare regulations or non- Medicare payer requirements, as applicable. In the case of services not specified as inpatient-only, they are appropriately provided as inpatient services in accordance with the 2-midnight benchmark. Estimated LOS (days): 2 2 days is the estimated time the patient will need to remain in the hospital, assuming treatment plan goals are met and no additional complications. Post-Hospital Plan: Not yet determined Linda Ross MD Nov 01, 2017 22:34
[2017-11-01] MEDS ORDERED: DEXTROSE 50% IN WATER 50 ML VIAL(D50) IV PUSH PRN (22:45)
[2017-11-01] MEDS ORDERED: RESP: ALBUTEROL 2.5 MG/IPRATROPIUM 0.5 MG NEB (PRN) NEB (22:45)
[2017-11-01] MEDS ORDERED: GLUCAGON 1 MG/ML VIAL OTHER PRN (22:45)
[2017-11-01] MEDS: HYDROmorphone HCL PF 2 MG/ML VIAL IV PUSH PRN (23:26)
[2017-11-01] MEDS: SODIUM CHLOR 0.9% 1000 ML INJ 1,000 ML IV SCH (23:28)
[2017-11-02] MEDS ORDERED: POVIDONE IODINE 5% (ANTISEPSIS KIT) 4 APPLICATIONS EACH NARE PRN (01:00)
[2017-11-02] MEDS ORDERED: LACTATED RINGER'S 1000 ML IV PRN (01:00)
[2017-11-02] MEDS ORDERED: SODIUM CHLORID 0.9% 500 ML IV PRN (01:00)
[2017-11-02] MEDS ORDERED: CHLORHEXIDINE GLUCONATE 2 % 1 PACK (2 CLOTHS) TOPICAL PRN (01:00)
[2017-11-02 03:59] LABS: AUTOMATED NEUTROPHIL # 3.9 TH/MM3 (1.8-7.7); BASOPHIL % 0.2 % (0.0-2.0); EOSINOPHIL % 0.8 % (0.0-4.0); HEMATOCRIT 25.6 % (35.0-46.0); HEMOGLOBIN 8.6 GM/DL (11.6-15.3); LYMPH % 16.4 % (9.0-44.0); LYMPHOCYTE # 0.8 TH/MM3 (1.0-4.8); MEAN CELL VOLUME 83.6 FL (80.0-100.0); MEAN CORPUSCULAR HGB CONC 33.5 % (32.0-36.0); MEAN PLATELET VOLUME 7.8 FL (7.0-11.0); MONOCYTE # 0.2 TH/MM3 (0-0.9); NEUT % 78.6 % (16.0-70.0); PLATELET COUNT 149 TH/MM3 (150-450); RED BLOOD COUNT 3.06 MIL/MM3 (4.00-5.30); RED CELL DISTRIBUTION WIDTH 16.4 % (11.6-17.2)
[2017-11-02 04:00] VITALS: BP 103/59; PULSE 109; RESP 20; TEMP 97.6; O2SAT 98
[2017-11-02] MEDS: HYDROmorphone HCL PF 2 MG/ML VIAL IV PUSH PRN (04:32)
[2017-11-02] MEDS: LEVOTHYROXINE SODIUM 75 MCG TAB PO SCH (04:32)
[2017-11-02] MEDS: LEVOTHYROXINE SODIUM 100 MCG TAB PO SCH (04:32)
[2017-11-02 04:37] LABS: BICARBONATE 27.1 MEQ/L (21.0-32.0); CALCIUM 7.6 MG/DL (8.5-10.1); CREATININE 0.56 MG/DL (0.50-1.00)
--- NOTE | 2017-11-02 07:43 | MB ---
cc: MEDARDO ALVARES DATE OF CONSULTATION 11/01/2017 REASON FOR CONSULTATION Left femur fracture. HISTORY OF PRESENT ILLNESS The patient is a 67-year-old female who had a knee replacement done by Dr. Cruz approximately 2 years ago. Apparently this was successful without significant problems up until today. The patient was on the toilet trying to strain to have a bowel movement. She had a syncopal episode from this fell and landed onto her left leg. She was unable to weight bear, noticed deformity and significant pain. The patient called family members. The patient was brought to the emergency room. She was found to have a comminuted left femur fracture. The patient denied any specific new numbness or tingling about the left femur. PAST MEDICAL HISTORY 1. Rheumatoid arthritis. 2. Asthma. 3. COPD. 4. Irritable bowel syndrome. 5. Breast cancer. 6. Hypertension. 7. Type 2 diabetes. 8. Hepatitis C. 9. Urinary tract infections. 10.Lupus. 11.Seizures. 12.Migraines. 13.Cluster headaches. 14.Hypothyroidism. PAST SURGICAL HISTORY 1. As above. 2. Inguinal hernia surgery. 3. Cataract surgery. 4. Hysterectomy. SOCIAL HISTORY The patient does not drink alcohol. She previously smoked. ALLERGIES 1. ASPARAGUS. 2. CHOCOLATE. 3. DOCETAXEL. MEDICATIONS See the chart. Note that she does take insulin. She is on meloxicam but I do not see other blood thinner. PHYSICAL EXAMINATION VITAL SIGNS: Temperature 97.9, pulse 97, respirations 20, blood pressure 131/62. GENERAL: She is awake, alert and oriented x3 with normal affect, insight and judgment. Mild distress due to pain. NECK: She is currently wearing a cervical spine collar so her neck was not evaluated. HEENT: Extraocular muscles are intact. Oropharynx is moist. HEART: Regular rate and rhythm. LUNGS: No audible wheeze with normal inspiratory effort. UPPER EXTREMITIES: Upper extremities at the shoulders, elbows and wrists show good alignment, normal range of motion with no pain with motion. ABDOMEN: Soft, nontender, nondistended. BACK: No CVA tenderness. LOWER EXTREMITIES: Examination of the left leg shows significant deformity. She is splinted with a wire frame type of splint. I did request this to be removed by the emergency room physician. She has a well-healed anterior incision from her knee replacement. She has swelling of the thigh of at least a mild degree but no evidence of compartment syndrome. She moves the toes well on the left foot. She has 2+ dorsalis pedis pulse and normal sensation distally. The right leg has no tenderness about the knee or the ankle and she moves the toes well. LABORATORY White cell count 4.1, hematocrit 25.9, platelets 145. Creatinine 0.68, glucose 162. IMAGING I reviewed the x-rays on the femur and the knee which show the patient has a left knee replacement which appears to be a posterior cruciate retaining type of device. There is a comminuted fracture of the distal femoral shaft that does not seem to go down into the knee replacement itself. I did not appreciate a hip fracture. IMPRESSION 1. Left femur periprosthetic supracondylar femur fracture. 2. Multiple medical problems as described above including anemia. DECISION-MAKING This is a very complex and difficult situation for this patient. I did explain nonoperative management will have uniformly very poor results which could ultimately lead to her not being able to ambulate and have high risk for developing blood clots, bed sores, pneumonia and . I do recommend urgent surgical management for this condition. Because she has a knee replacement in place this does sometimes alter the type of treatment that can be considered. We will consider a retrograde intramedullary nail versus open reduction, internal fixation with plates and screws, possible cerclage wires. Open surgery could have considerable blood loss and she is already anemic which increases the chance of needing blood transfusions or having other complications. Will make arrangements to move forward with surgical management tomorrow morning. She understands the risks of surgery include but are not limited to injury to nerves and blood vessels, bleeding, infection, failure of hardware, need for operation, continued pain, loss of range of motion in associated joints, DVT, pulmonary embolus, pneumonia and . All questions have been answered. MD JUSTINE Carr/KHADRA /8:15 PM /7:26 AM
[2017-11-02 08:00] VITALS: BP 105/56; PULSE 110; RESP 17; TEMP 97.6; O2SAT 98
[2017-11-02] MEDS: INSULIN ASPART SUPPLEMENTAL SCALE SQ SCH ×4 (08:45→22:13)
[2017-11-02] MEDS: BUDESONIDE-FORMOTEROL 160/4.5 MCG INHALER INH SCH ×2 (08:51→22:16)
[2017-11-02] MEDS: SODIUM CHLORIDE 0.9% FLUSH 10 ML FLUSH IV FLUSH SCH ×2 (08:51→22:15)
[2017-11-02] MEDS: SODIUM CHLOR 0.9% 1000 ML INJ 1,000 ML IV SCH ×2 (08:51→14:42)
[2017-11-02] MEDS: DOCUSATE SODIUM 50 MG/SENNA 8.6 MG TAB PO SCH ×3 (08:52→22:15)
[2017-11-02] MEDS: lamoTRIgine 100 MG TAB PO SCH (08:52)
[2017-11-02] MEDS: PANTOPRAZOLE SOD 40 MG DELAYED RELEASE TAB PO SCH (08:52)
[2017-11-02] MEDS: TOPIRAMATE 25 MG TAB PO SCH ×2 (08:52→22:13)
[2017-11-02] MEDS: METOPROLOL TARTRATE 25 MG TAB PO SCH ×2 (08:53→22:13)
[2017-11-02] MEDS: SERTRALINE HCL 100 MG TAB PO SCH (08:53)
[2017-11-02] MEDS ORDERED: ceFAZolin INJ 1,000 MG VIAL ONE (09:41)
[2017-11-02] MEDS ORDERED: GENTAMICIN SULFATE 80 MG/2 ML VIAL ONE (09:41)
[2017-11-02] MEDS ORDERED: VANCOMYCIN HCL 1000 MG VIAL ONE (09:42)
[2017-11-02] MEDS ORDERED: SODIUM CHLOR 0.9% 250 ML INJ 250 ML ONE (09:42)
[2017-11-02] MEDS ORDERED: RESP: ALBUTEROL 2.5 MG/3 ML NEB (PRN) ONE (10:14)
[2017-11-02] MEDS ORDERED: ACETAMINOPHEN/HYDROcodone 325 MG/5 MG TAB PO PRN (11:15)
[2017-11-02] MEDS ORDERED: Post-op Orders (for Pharmacy) XX ONE (11:15)
[2017-11-02] MEDS ORDERED: diphenhydrAMINE HCL 25 MG CAP PO PRN (11:15)
[2017-11-02] MEDS ORDERED: MISCELLANEOUS NURSING INFORMATION XX PRN (11:15)
[2017-11-02] MEDS ORDERED: ONDANSETRON HCL 4 MG/2 ML VIAL IVP PRN (11:15)
[2017-11-02] MEDS ORDERED: NALOXONE HCL 0.4 MG/ML AMP IV PUSH PRN (11:15)
[2017-11-02] MEDS ORDERED: MORPHINE SULFATE 4 MG/ML INJ IV PUSH PRN (11:15)
[2017-11-02] MEDS ORDERED: MAGNESIUM HYDROXIDE SUSP 30 ML CUP PO PRN (11:15)
[2017-11-02] MEDS ORDERED: MISCELLANEOUS PHARMACY INFORMATION XX ONE (11:15)
--- NOTE | 2017-11-02 11:18 | PD.OP ---
cc: Duek Kincaid MD Operative Report Date of Surgery: Nov 02, 2017 Preoperative Diagnosis: Left femur periprosthetic supracondylar fracture Postoperative Diagnosis: Same Procedure: Left femur periprosthetic supracondylar fracture treated with intramedullary nail Anesthesia: Gen. Surgeon: Duke Kincaid Drive In Theater Attendant(s): MARCI Phipps The surgical procedure was assisted by my Advanced Registered Nurse Practitioner. My SENIOR REVENUE ACCOUNTANT presence was necessary throughout this case for the manipulation and positioning of the surgical extremity. My SENIOR REVENUE ACCOUNTANT was assisting me throughout the duration of this procedure. The skill set of an Advance Registered Nurse Practitioner was medically necessary to complete this procedure. During the surgical case, the surgical coder was working at the back table and the Advance Registered Nurse Practitioner was directly assisting me. Operation and Findings: Estimated blood loss: 200 cc Implants: Synthes retrograde trochanteric nail, size: 14 x 340 The patient received intravenous vancomycin and Ancef. After the appropriate anesthesia was administered, and the patient was transferred to the radiolucent table. The fracture was manipulated to evaluate the fracture pattern better and also to further evaluate the prosthesis. We were able to determine that this was a posterior cruciate retaining device. Therefore, based on the fracture pattern and that information we decided to move forward with a retrograde femoral nail. The leg was prepped and draped in usual sterile fashion. We made incision over the patella tendon and made an in-line longitudinal incision through the tendon. We bluntly dissected through the capsule. There was scar tissue from the previous knee replacement. There was hematoma evacuated. No signs of infection were noted. We palpated the lower end of the femoral prosthesis. We placed a threaded guidewire into the appropriate starting point on the AP and lateral views. We reamed distally. We placed a ball-tipped guidewire up the femoral shaft and passed the fracture up to the intertrochanteric region. We sequentially reamed up to 14 mm. We templated a 340 mm nail. We placed the nail up into the appropriate position with the nail buried into the distal femur. We secured the nail using the associated jig and we placed a helical blade and a single screw from lateral to medial. We then locked in the helical blade with an end cap. Note that prior to placing these 2 locking devices we did reduce the femur because there was still angulation noted on the lateral view. With holding the femur in a reduced position this locked the nail into good position to significantly reduce this deforming force. We placed the appropriate amount of tension on the leg to bring the comminuted femoral shaft out to length. This was evaluated on fluoroscopic imaging. Additionally we felt we had good rotation of the knee as well. We then locked the nail and proximally using perfect pauma technique with 2 screws. We took final fluoroscopic imaging showing overall excellent alignment of the comminuted fracture. We thoroughly irrigated the joint. We closed the patella tendon incision with 0 Vicryl. The remaining incisions were closed with 2-0 Vicryl followed by shan. The postoperative plan is to start non-weightbearing. Additionally, we will initiate postoperative antibiotics for 24 hours along with DVT prophylaxis consisting of early mobilization, SCDs, compression stockings, and Lovenox followed by aspirin. Duke Kincaid MD Nov 02, 2017 11:17
[2017-11-02] MEDS ORDERED: ASPI-146 PO (11:19)
[2017-11-02] MEDS ORDERED: ENOX40IN SQ (11:19)
[2017-11-02] MEDS ORDERED: NORC5TAB PO (11:19)
[2017-11-02] MEDS ORDERED: DO NOT ADM ANY ANTICOAGULANT DRUGS PRN (11:32)
[2017-11-02] MEDS ORDERED: MIDAZOLAM HCL 2 MG/2 ML VIAL ONE (11:38)
--- NOTE | 2017-11-02 11:41 | RADRPT ---
EXAM DATE/TIME: 11/02/2017 10:52 [facility] COMPARISON: FEMUR LEFT (AP & LAT/2VWS), November 01, 2017, 19:13. INDICATIONS : Open reduction internal fixation of the left femur. MEDICAL HISTORY : Seizures. Hypothyroidism. Chronic obstructive pulmonary disease. SURGICAL HISTORY : Total knee replacement, left. Hernia sx. ENCOUNTER: Subsequent ACUITY: 2 days PAIN SCORE: Non-responsive. LOCATION: Left femur. CONCLUSION: Fluoroscopic images during placement of intramedullary igor fixating distal femoral fracture. Sen Turner MD on November 02, 2017 at 11:37 Board Certified Radiologist. This report was verified electronically.
[2017-11-02] MEDS ORDERED: NEOSTIGMINE 5 MG/5 ML SYRINGE IV PUSH ONE (12:00)
[2017-11-02] MEDS ORDERED: PHENYLEPH/NS 1000 MCG/10 ML SYR IV ONE (12:00)
[2017-11-02] MEDS ORDERED: ROCURONIUM INJ 50 MG/5 ML SYRINGE IV PUSH ONE (12:00)
[2017-11-02] MEDS ORDERED: DEXAMETHASONE SOD PHOS 4 MG/ML VIAL IV ONE (12:00)
[2017-11-02] MEDS ORDERED: GLYCOPYRROLATE 1 MG/5 ML SYRINGE IV PUSH ONE (12:00)
[2017-11-02] MEDS ORDERED: PROPOFOL 200 MG/20 ML AMP IV ONE (12:00)
[2017-11-02] MEDS ORDERED: LIDOCAINE HCL 1% PF 5 ML SYRINGE OTHER ONE (12:00)
[2017-11-02] MEDS ORDERED: ONDANSETRON HCL 4 MG/2 ML VIAL IV ONE (12:00)
[2017-11-02 13:30] VITALS: BP 116/58; PULSE 114; RESP 17; TEMP 98.2; O2SAT 95
--- NOTE | 2017-11-02 15:48 | EKG ---
Date Performed: 11/01/2017 Time Performed: 18:56:19 PTAGE: 67 years EKG: Sinus rhythm NORMAL ECG Since PREVIOUS TRACING , no significant change noted PREVIOUS TRACIN10/27/2017 17.37 DOCTOR: Cam Hernandez Interpretating Date/Time 11/02/2017 15:46:25
[2017-11-02 16:00] VITALS: BP 113/62; PULSE 119; RESP 17; TEMP 98.3; O2SAT 96
--- NOTE | 2017-11-02 16:19 | HHI.PR ---
Subjective Remarks Follow-up left femur fracture, status post repair 11/02/17-patient seen and examined, was taken to the operating room today and underwent left femur repair. Seen postoperatively in the room, denies any chest pain or shortness of breath. Pain currently controlled Objective Vitals Vital Signs Date Time Temp Pulse Resp B/P (MAP) Pulse Ox O2 Delivery O2 Flow Rate FiO2 11/02/17 13:30 98.2 114 17 116/58 (77) 95 11/02/17 12:15 109 23 123/58 (79) 98 Nasal Cannula 3 11/02/17 12:00 110 23 119/56 (77) 98 Nasal Cannula 3 11/02/17 11:45 104 23 108/53 (71) 96 Nasal Cannula 3 11/02/17 11:34 98.4 108 23 123/57 (79) 92 Nasal Cannula 3 11/02/17 08:00 97.6 110 17 105/56 (72) 98 11/02/17 04:00 97.6 109 20 103/59 (74) 98 11/01/17 22:30 98.0 102 20 124/66 (85) 98 11/01/17 22:30 11/01/17 21:00 100 16 106/60 (75) 93 Room Air 11/01/17 19:45 97 16 118/69 (85) 100 Nasal Cannula 2.00 11/01/17 18:52 93 18 96 Nasal Cannula 2.00 11/01/17 18:49 97.9 93 20 131/62 (85) 96 Nasal Cannula 2.00 11/01/17 18:49 77 18 99 Nasal Cannula 2.00 11/01/17 18:41 97.9 97 20 131/62 (85) 92 I/O 11/01/17 11/01/17 11/01/17 11/02/17 11/02/17 11/02/17 07:00 15:00 23:00 07:00 15:00 23:00 Intake Total 0 ml 1200 ml Output Total 550 ml 500 ml Balance -550 ml 700 ml Intake Oral 0 ml IV Total 1200 ml Output Urine Total 550 ml 300 ml Estimated Blood Loss 200 ml # Bowel Movements 1 Result Diagram: 11/02/17 0259 11/02/17 0259 Imaging Last Impressions Femur X-Ray 11/02/17 0000 Signed Impressions: Service Date/Time: Thursday, November 02, 2017 10:52 - CONCLUSION: Fluoroscopic images during placement of intramedullary igor fixating distal femoral fracture. Sen Turner MD Head CT 11/01/171846 Signed Impressions: Service Date/Time: Wednesday, November 01, 2017 19:34 - CONCLUSION: No acute hemorrhage, midline shift or extra-axial fluid collections. The examination is somewhat limited due to patient motion during scanning Harman Davis MD Chest X-Ray 11/01/171846 Signed Impressions: Service Date/Time: Wednesday, November 01, 2017 19:18 - CONCLUSION: Stable increased interstitial markings bilaterally. No pneumothorax status post trauma. Harman Davis MD Cervical Spine CT 11/01/171846 Signed Impressions: Service Date/Time: Wednesday, November 01, 2017 19:34 - CONCLUSION: 1. No acute fracture or prevertebral soft tissue swelling. 2. Mild bilateral foraminal narrowing at C6-7. 3. Mild cervical spondylosis at C6-7 and to a lesser extent at C5-6, C4-5 and C7-T1. Harman Davis MD Pelvis X-Ray 11/01/17 0000 Signed Impressions: Service Date/Time: Wednesday, November 01, 2017 19:13 - CONCLUSION: No acute fracture or dislocation. Mild degenerative changes involving the lumbar spine and bilateral hips Harman Davis MD Knee X-Ray 11/01/17 0000 Signed Impressions: Service Date/Time: Wednesday, November 01, 2017 19:21 - CONCLUSION: Acute displaced comminuted fracture involving the left distal femoral shaft. Harman Davis MD Objective Remarks GENERAL: NAD SKIN: Warm and dry. HEAD: Normocephalic. EYES: No scleral icterus. No injection or drainage. NECK: Supple, trachea midline. No JVD or lymphadenopathy. CARDIOVASCULAR: Regular rate and rhythm without murmurs, gallops, or rubs. RESPIRATORY: Breath sounds equal bilaterally. No accessory muscle use. GASTROINTESTINAL: Abdomen soft, non-tender, nondistended. MUSCULOSKELETAL: No cyanosis, or edema. Status post left lower extremity repair , brace in place-neurovascular intact BACK: Nontender without obvious deformity. No CVA tenderness. Procedures Left femur periprosthetic supracondylar fracture treated with intramedullary nail 11/02/17 A/P Problem List: (1) Femur fracture, left ICD Code: S72.92XA - Unspecified fracture of left femur, initial encounter for closed fracture Assessment and Plan 67-year-old female with 1. Fall/left femur fracture s/p Left femur periprosthetic supracondylar fracture treated with intramedullary nail 11/02/17 Management per orthopedic surgery Continue current postop care PT to treat and eval Lovenox for DVT prophylaxis 2. Diabetes mellitus Resume home Lantus Continue Sliding scale insulin Monitor blood glucose 3. Hypertension Continue metoprolol, lisinopril 4. Seizure disorder Continue Lamictal and Topamax 5. Depression/anxiety Continue Zoloft, olanzapine and quetiapine 6. Hypothyroidism Continue home Synthroid 7. COPD Continue home Advair Shell DVT prophylaxis: Sen Snyder MD Nov 02, 2017 16:19
[2017-11-02] MEDS: ACETAMINOPHEN/HYDROcodone 325 MG/5 MG TAB PO PRN ×2 (17:38→22:12)
[2017-11-02 20:00] VITALS: BP 105/58; PULSE 118; RESP 16; TEMP 99.1; O2SAT 98
[2017-11-02] MEDS: DEXT 5%-NACL 0.45% 1000 ML INJ 1,000 ML IV SCH (21:07)
[2017-11-02] MEDS: QUEtiapine FUMARATE 300 MG TAB PO SCH (22:13)
[2017-11-02] MEDS: OLANZapine 10 MG TAB PO SCH (22:13)
[2017-11-02 23:55] VITALS: BP 104/54; PULSE 102; RESP 18; TEMP 97.6; O2SAT 99
[2017-11-03] VITALS (11 sets, daily range): BP systolic 90–123; BP diastolic 46–57; PULSE 89–101; RESP 17–20; TEMP 96.6–99.6; O2SAT 94–100
[2017-11-03] MEDS: SODIUM CHLOR 0.9% 1000 ML INJ 1,000 ML IV SCH ×3 (02:47→23:37)
[2017-11-03 05:29] LABS: AUTOMATED NEUTROPHIL # 1.5 TH/MM3 (1.8-7.7); BASOPHIL % 0.4 % (0.0-2.0); LYMPH % 37.5 % (9.0-44.0); MEAN CELL VOLUME 83.4 FL (80.0-100.0); MEAN CORPUSCULAR HGB CONC 33.5 % (32.0-36.0); MEAN PLATELET VOLUME 7.4 FL (7.0-11.0); MONO % 6.2 % (0.0-8.0); MONOCYTE # 0.2 TH/MM3 (0-0.9); NEUT % 54.9 % (16.0-70.0); PLATELET COUNT 107 TH/MM3 (150-450); WHITE BLOOD COUNT 2.8 TH/MM3 (4.0-11.0)
[2017-11-03 05:36] LABS: HEMOGLOBIN 5.9 GM/DL (11.6-15.3)
[2017-11-03 05:37] LABS: HEMATOCRIT 17.5 % (35.0-46.0)
[2017-11-03 05:51] LABS: BICARBONATE 26.2 MEQ/L (21.0-32.0); CALCIUM 7.3 MG/DL (8.5-10.1); CREATININE 0.47 MG/DL (0.50-1.00)
[2017-11-03] MEDS ORDERED: SODIUM CHLOR 0.9% 250 ML INJ 250 ML IV ONE (06:00)
[2017-11-03 06:05] LABS: CALCIUM-PROTEIN CORRECTED 8.2 MG/DL (8.5-10.1); TOTAL PROTEIN 5.4 GM/DL (6.4-8.2)
[2017-11-03] MEDS: LEVOTHYROXINE SODIUM 75 MCG TAB PO SCH (06:08)
[2017-11-03] MEDS: LEVOTHYROXINE SODIUM 100 MCG TAB PO SCH (06:08)
[2017-11-03] MEDS: INSULIN ASPART SUPPLEMENTAL SCALE SQ SCH ×4 (08:00→20:01)
[2017-11-03] MEDS: SODIUM CHLORIDE 0.9% FLUSH 10 ML FLUSH IV FLUSH SCH ×2 (08:31→20:01)
[2017-11-03] MEDS: SERTRALINE HCL 100 MG TAB PO SCH (08:43)
[2017-11-03] MEDS: METOPROLOL TARTRATE 25 MG TAB PO SCH ×2 (08:43→19:52)
[2017-11-03] MEDS: LISINOPRIL 10 MG TAB PO SCH (08:43)
[2017-11-03] MEDS: lamoTRIgine 100 MG TAB PO SCH (08:43)
[2017-11-03] MEDS: TOPIRAMATE 25 MG TAB PO SCH ×2 (08:43→20:01)
[2017-11-03] MEDS: INSULIN DETEMIR 100 UNITS/ML VIAL SQ SCH (08:43)
[2017-11-03] MEDS: PANTOPRAZOLE SOD 40 MG DELAYED RELEASE TAB PO SCH (08:43)
[2017-11-03] MEDS: MULTIVITAMINS/MINERALS THERAPEUTIC TAB PO SCH (08:43)
[2017-11-03] MEDS: DOCUSATE SODIUM 50 MG/SENNA 8.6 MG TAB PO SCH ×4 (08:44→20:04)
[2017-11-03] MEDS: BUDESONIDE-FORMOTEROL 160/4.5 MCG INHALER INH SCH ×2 (08:48→20:03)
--- NOTE | 2017-11-03 09:45 | PD.ORT.PN ---
Subjective Post Op Day #: 1 Subjective Remarks Patient resting comfortably in bed in NAD. Patient states her pain is mild to moderate with movement. Objective Vitals Vital Signs Date Time Temp Pulse Resp B/P (MAP) Pulse Ox O2 Delivery O2 Flow Rate FiO2 11/03/17 08:00 97.4 89 18 106/54 (71) 100 11/03/17 07:13 98 11/03/17 04:00 96.6 96 20 90/46 (61) 98 11/02/17 23:55 97.6 102 18 104/54 (71) 99 11/02/17 20:00 99.1 118 16 105/58 (74) 98 11/02/17 16:00 98.3 119 17 113/62 (79) 96 11/02/17 13:30 98.2 114 17 116/58 (77) 95 11/02/17 12:15 109 23 123/58 (79) 98 Nasal Cannula 3 11/02/17 12:00 110 23 119/56 (77) 98 Nasal Cannula 3 11/02/17 11:45 104 23 108/53 (71) 96 Nasal Cannula 3 11/02/17 11:34 98.4 108 23 123/57 (79) 92 Nasal Cannula 3 I/O 11/02/17 11/02/17 11/02/17 11/03/17 11/03/17 11/03/17 07:00 15:00 23:00 07:00 15:00 23:00 Intake Total 0 ml 1620 ml 240 ml Output Total 550 ml 1425 ml 850 ml Balance -550 ml 195 ml -610 ml Intake Oral 0 ml 420 ml 240 ml IV Total 1200 ml Output Urine Total 550 ml 1225 ml 850 ml Estimated Blood Loss 200 ml # Bowel Movements 0 0 Result Diagram: 11/03/17 0507 11/03/17 0507 Procedures Left femur periprosthetic supracondylar fracture treated with intramedullary nail Objective Remarks Dressing is C/D/I. EHL/TA/G intact. Calf is soft and nontender. 2+ pedal pulse. + SILT. Knee immobilizer in place. Assessment & Plan Ortho Post Op Day #: 1 Problem List: Assessment and Plan POD #1: Left femur periprosthetic supracondylar fracture treated with intramedullary nail 1. NWB LLE 2. Lovenox followed by ASA for DVT prophylaxis 3. Ice to the left femur PRN 4. Anemic. Transfuse 2 units PRBCs 5. Anticipatory discharge to SNF on Saturday or Saturday. 6. F/U with Dr. Kincaid or [facility] Dorsey in 1-2 weeks. Alex Duque Nov 03, 2017 09:45
[2017-11-03] MEDS ORDERED: FUROSEMIDE 20 MG/2 ML VIAL IV PUSH ONE (10:00)
[2017-11-03] MEDS: ENOXAPARIN SODIUM 40 MG/0.4 ML SYRINGE SQ SCH (10:13)
--- NOTE | 2017-11-03 10:28 | HHI.PR ---
Subjective Remarks Follow-up left femur fracture, status post repair 11/02/17-patient seen and examined, was taken to the operating room today and underwent left femur repair. Seen postoperatively in the room, denies any chest pain or shortness of breath. Pain currently controlled 11/03/17-patient seen and examined, reports some left lower extremity soreness. H&H low. Denies any shortness of breath. Objective Vitals Vital Signs Date Time Temp Pulse Resp B/P (MAP) Pulse Ox O2 Delivery O2 Flow Rate FiO2 11/03/17 08:00 97.4 89 18 106/54 (71) 100 11/03/17 07:13 98 11/03/17 04:00 96.6 96 20 90/46 (61) 98 11/02/17 23:55 97.6 102 18 104/54 (71) 99 11/02/17 20:00 99.1 118 16 105/58 (74) 98 11/02/17 16:00 98.3 119 17 113/62 (79) 96 11/02/17 13:30 98.2 114 17 116/58 (77) 95 11/02/17 12:15 109 23 123/58 (79) 98 Nasal Cannula 3 11/02/17 12:00 110 23 119/56 (77) 98 Nasal Cannula 3 11/02/17 11:45 104 23 108/53 (71) 96 Nasal Cannula 3 11/02/17 11:34 98.4 108 23 123/57 (79) 92 Nasal Cannula 3 I/O 11/02/17 11/02/17 11/02/17 11/03/17 11/03/17 11/03/17 07:00 15:00 23:00 07:00 15:00 23:00 Intake Total 0 ml 1620 ml 240 ml Output Total 550 ml 1425 ml 850 ml Balance -550 ml 195 ml -610 ml Intake Oral 0 ml 420 ml 240 ml IV Total 1200 ml Output Urine Total 550 ml 1225 ml 850 ml Estimated Blood Loss 200 ml # Bowel Movements 0 0 Result Diagram: 11/03/17 0507 11/03/17 0507 Objective Remarks GENERAL: NAD SKIN: Warm and dry. HEAD: Normocephalic. EYES: No scleral icterus. No injection or drainage. NECK: Supple, trachea midline. No JVD or lymphadenopathy. CARDIOVASCULAR: Regular rate and rhythm without murmurs, gallops, or rubs. RESPIRATORY: Breath sounds equal bilaterally. No accessory muscle use. GASTROINTESTINAL: Abdomen soft, non-tender, nondistended. MUSCULOSKELETAL: No cyanosis, or edema. Status post left lower extremity repair , brace in place-neurovascular intact BACK: Nontender without obvious deformity. No CVA tenderness. Procedures Left femur periprosthetic supracondylar fracture treated with intramedullary nail 11/02/17 A/P Problem List: (1) Femur fracture, left ICD Code: S72.92XA - Unspecified fracture of left femur, initial encounter for closed fracture (2) Postoperative anemia due to acute blood loss ICD Code: D62 - Acute posthemorrhagic anemia Assessment and Plan 67-year-old female with 1. Fall/left femur fracture s/p Left femur periprosthetic supracondylar fracture treated with intramedullary nail 11/02/17 Management per orthopedic surgery Continue current postop care PT to treat and eval Lovenox for DVT prophylaxis 2. Diabetes mellitus Continue home Lantus Continue Sliding scale insulin Monitor blood glucose 3. Hypertension Continue metoprolol, lisinopril 4. Seizure disorder Continue Lamictal and Topamax 5. Depression/anxiety Continue Zoloft, olanzapine and quetiapine 6. Hypothyroidism Continue home Synthroid 7. COPD Continue home Advair DuoNebs 8. Postoperatively anemia due to acute blood loss Transfuse 2 units packed red blood cell today 11/03/17 Monitor H&H DVT prophylaxis: Sen Snyder MD Nov 03, 2017 10:28
[2017-11-03] MEDS: ACETAMINOPHEN/HYDROcodone 325 MG/5 MG TAB PO PRN ×2 (14:11→19:53)
[2017-11-03] MEDS ORDERED: WALKER WHEELS/F1 MIS (14:50)
[2017-11-03] MEDS ORDERED: COMMODE 3-IN-11 MIS (14:50)
[2017-11-03] MEDS: DEXT 5%-NACL 0.45% 1000 ML INJ 1,000 ML IV SCH (17:07)
[2017-11-03] MEDS: QUEtiapine FUMARATE 300 MG TAB PO SCH (19:52)
[2017-11-03] MEDS: OLANZapine 10 MG TAB PO SCH (19:52)
[2017-11-03 20:11] LABS: BASOPHIL % 0.5 % (0.0-2.0); EOSINOPHIL % 0.9 % (0.0-4.0); HEMATOCRIT 25.1 % (35.0-46.0); HEMOGLOBIN 8.4 GM/DL (11.6-15.3); LYMPH % 31.9 % (9.0-44.0); LYMPHOCYTE # 1.1 TH/MM3 (1.0-4.8); MEAN CELL VOLUME 85.3 FL (80.0-100.0); MEAN CORPUSCULAR HEMOGLOBIN 28.5 PG (27.0-34.0); MEAN CORPUSCULAR HGB CONC 33.4 % (32.0-36.0); MEAN PLATELET VOLUME 7.7 FL (7.0-11.0); MONO % 7.8 % (0.0-8.0); MONOCYTE # 0.3 TH/MM3 (0-0.9); NEUT % 58.9 % (16.0-70.0); PLATELET COUNT 123 TH/MM3 (150-450); RED BLOOD COUNT 2.94 MIL/MM3 (4.00-5.30); RED CELL DISTRIBUTION WIDTH 17.1 % (11.6-17.2); WHITE BLOOD COUNT 3.4 TH/MM3 (4.0-11.0)
[2017-11-04 00:05] VITALS: BP 120/56; PULSE 85; RESP 17; TEMP 97.4; O2SAT 96
[2017-11-04] MEDS: DEXT 5%-NACL 0.45% 1000 ML INJ 1,000 ML IV SCH (03:07)
[2017-11-04] MEDS: LEVOTHYROXINE SODIUM 100 MCG TAB PO SCH (05:39)
[2017-11-04] MEDS: LEVOTHYROXINE SODIUM 75 MCG TAB PO SCH (05:39)
[2017-11-04 06:20] LABS: AUTOMATED NEUTROPHIL # 1.3 TH/MM3 (1.8-7.7); BASOPHIL % 0.3 % (0.0-2.0); EOSINOPHIL % 1.1 % (0.0-4.0); HEMATOCRIT 22.2 % (35.0-46.0); HEMOGLOBIN 7.6 GM/DL (11.6-15.3); LYMPH % 46.3 % (9.0-44.0); LYMPHOCYTE # 1.4 TH/MM3 (1.0-4.8); MEAN CELL VOLUME 85.5 FL (80.0-100.0); MEAN CORPUSCULAR HEMOGLOBIN 29.1 PG (27.0-34.0); MEAN PLATELET VOLUME 7.8 FL (7.0-11.0); MONO % 7.9 % (0.0-8.0); MONOCYTE # 0.2 TH/MM3 (0-0.9); NEUT % 44.4 % (16.0-70.0); PLATELET COUNT 106 TH/MM3 (150-450); RED BLOOD COUNT 2.59 MIL/MM3 (4.00-5.30); RED CELL DISTRIBUTION WIDTH 17.4 % (11.6-17.2)
[2017-11-04 07:34] VITALS: BP 118/57; PULSE 90; RESP 18; TEMP 96.9; O2SAT 96
[2017-11-04] MEDS: INSULIN ASPART SUPPLEMENTAL SCALE SQ SCH ×4 (08:00→20:23)
[2017-11-04] MEDS: LISINOPRIL 10 MG TAB PO SCH (08:03)
[2017-11-04] MEDS: DOCUSATE SODIUM 50 MG/SENNA 8.6 MG TAB PO SCH ×4 (08:03→20:23)
[2017-11-04] MEDS: INSULIN DETEMIR 100 UNITS/ML VIAL SQ SCH (08:03)
[2017-11-04] MEDS: MULTIVITAMINS/MINERALS THERAPEUTIC TAB PO SCH (08:04)
[2017-11-04] MEDS: lamoTRIgine 100 MG TAB PO SCH (08:04)
[2017-11-04] MEDS: SERTRALINE HCL 100 MG TAB PO SCH (08:04)
[2017-11-04] MEDS: METOPROLOL TARTRATE 25 MG TAB PO SCH ×2 (08:04→20:23)
[2017-11-04] MEDS: PANTOPRAZOLE SOD 40 MG DELAYED RELEASE TAB PO SCH (08:04)
[2017-11-04] MEDS: TOPIRAMATE 25 MG TAB PO SCH ×2 (08:04→20:23)
[2017-11-04] MEDS: BUDESONIDE-FORMOTEROL 160/4.5 MCG INHALER INH SCH ×2 (08:07→20:22)
[2017-11-04] MEDS: SODIUM CHLOR 0.9% 1000 ML INJ 1,000 ML IV SCH (08:08)
[2017-11-04] MEDS: SODIUM CHLORIDE 0.9% FLUSH 10 ML FLUSH IV FLUSH SCH ×2 (08:08→20:23)
[2017-11-04] MEDS: ACETAMINOPHEN/HYDROcodone 325 MG/5 MG TAB PO PRN ×2 (09:44→22:35)
[2017-11-04] MEDS: ENOXAPARIN SODIUM 40 MG/0.4 ML SYRINGE SQ SCH (09:44)
[2017-11-04] MEDS ORDERED: diphenhydrAMINE HCL 25 MG CAP PO PRN (10:00)
[2017-11-04] MEDS ORDERED: SODIUM CHLOR 0.9% 250 ML INJ 250 ML IV ONE (10:00)
[2017-11-04] MEDS ORDERED: ACETAMINOPHEN 325 MG TAB PO PRN (10:00)
[2017-11-04 11:18] VITALS: BP 129/60; PULSE 86; RESP 18; TEMP 98; O2SAT 99
--- NOTE | 2017-11-04 11:57 | HHI.PR ---
Subjective Remarks Follow-up left femur fracture, status post repair 11/02/17-patient seen and examined, was taken to the operating room today and underwent left femur repair. Seen postoperatively in the room, denies any chest pain or shortness of breath. Pain currently controlled 11/03/17-patient seen and examined, reports some left lower extremity soreness. H&H low. Denies any shortness of breath. 11/04/17-patient seen and examined, H&H dropping however no report of any bleeding. Still complains of left lower extremity soreness. Afebrile Objective Vitals Vital Signs Date Time Temp Pulse Resp B/P (MAP) Pulse Ox O2 Delivery O2 Flow Rate FiO2 11/04/17 11:18 98.0 86 18 129/60 (83) 99 11/04/17 07:34 96.9 90 18 118/57 (77) 96 11/04/17 00:05 97.4 85 17 120/56 (77) 96 11/03/17 20:05 99.6 99 17 123/55 (77) 98 11/03/17 17:50 99.0 98 18 108/56 96 11/03/17 16:14 95 21 11/03/17 15:11 18 11/03/17 15:10 99.3 98 18 109/51 95 11/03/17 14:52 99.1 100 18 109/50 94 11/03/17 14:15 98.6 101 18 111/55 97 11/03/17 12:06 98.6 100 18 113/57 100 I/O 11/03/17 11/03/17 11/03/17 11/04/17 11/04/17 11/04/17 07:00 15:00 23:00 07:00 15:00 23:00 Intake Total 240 ml 770 ml 1410 ml 360 ml Output Total 850 ml 2275 ml 450 ml Balance -610 ml 770 ml -865 ml -90 ml Intake Oral 240 ml 960 ml 360 ml Packed Cells 400 ml 400 ml Blood Product IV Normal Saline Flush 370 ml 50 ml Output Urine Total 850 ml 2275 ml 450 ml # Bowel Movements 0 1 0 Result Diagram: 11/04/17 0537 11/03/17 0507 Imaging Last Impressions Femur X-Ray 11/02/17 0000 Signed Impressions: Service Date/Time: Thursday, November 02, 2017 10:52 - CONCLUSION: Fluoroscopic images during placement of intramedullary igor fixating distal femoral fracture. Sen Turner MD Head CT [id number]/01/[id number] Signed Impressions: Service Date/Time: Wednesday, November 01, 2017 19:34 - CONCLUSION: No acute hemorrhage, midline shift or extra-axial fluid collections. The examination is somewhat limited due to patient motion during scanning Harman Davis MD Chest X-Ray [id number]/01/[id number] Signed Impressions: Service Date/Time: Wednesday, November 01, 2017 19:18 - CONCLUSION: Stable increased interstitial markings bilaterally. No pneumothorax status post trauma. Harman Davis MD Cervical Spine CT [id number]/[id number] Signed Impressions: Service Date/Time: Wednesday, November 01, 2017 19:34 - CONCLUSION: 1. No acute fracture or prevertebral soft tissue swelling. 2. Mild bilateral foraminal narrowing at C6-7. 3. Mild cervical spondylosis at C6-7 and to a lesser extent at C5-6, C4-5 and C7-T1. Harman Davis MD Pelvis X-Ray 11/01/17 0000 Signed Impressions: Service Date/Time: Wednesday, November 01, 2017 19:13 - CONCLUSION: No acute fracture or dislocation. Mild degenerative changes involving the lumbar spine and bilateral hips Harman Davis MD Knee X-Ray 11/01/17 0000 Signed Impressions: Service Date/Time: Wednesday, November 01, 2017 19:21 - CONCLUSION: Acute displaced comminuted fracture involving the left distal femoral shaft. Harman Davis MD Objective Remarks GENERAL: NAD SKIN: Warm and dry. HEAD: Normocephalic. EYES: No scleral icterus. No injection or drainage. NECK: Supple, trachea midline. No JVD or lymphadenopathy. CARDIOVASCULAR: Regular rate and rhythm without murmurs, gallops, or rubs. RESPIRATORY: Breath sounds equal bilaterally. No accessory muscle use. GASTROINTESTINAL: Abdomen soft, non-tender, nondistended. MUSCULOSKELETAL: No cyanosis, or edema. Status post left lower extremity repair , brace in place-neurovascular intact BACK: Nontender without obvious deformity. No CVA tenderness. Procedures Left femur periprosthetic supracondylar fracture treated with intramedullary nail 11/02/17 A/P Problem List: (1) Femur fracture, left ICD Code: S72.92XA - Unspecified fracture of left femur, initial encounter for closed fracture (2) Postoperative anemia due to acute blood loss ICD Code: D62 - Acute posthemorrhagic anemia Assessment and Plan 67-year-old female with 1. Fall/left femur fracture s/p Left femur periprosthetic supracondylar fracture treated with intramedullary nail 11/02/17 Management per orthopedic surgery Continue current postop care PT to treat and eval Lovenox for DVT prophylaxis 2. Diabetes mellitus Continue home Lantus Continue Sliding scale insulin Monitor blood glucose 3. Hypertension Continue metoprolol, lisinopril 4. Seizure disorder Continue Lamictal and Topamax 5. Depression/anxiety Continue Zoloft, olanzapine and quetiapine 6. Hypothyroidism Continue home Synthroid 7. COPD Continue home Advair Duo Nebs 8. Postoperatively anemia due to acute blood loss Transfused 2 units packed red blood cell 11/03/17 However H&H still low, will transfuse again 1 unit packed red blood cell today 11/04/17 Monitor H&H DVT prophylaxis: Lovenox Problem Qualifiers (1) Femur fracture, left: Qualified Codes: S72.362A - Displaced segmental fracture of shaft of left femur , initial encounter for closed fracture Sen Richey MD Nov 04, 2017 11:57
--- NOTE | 2017-11-04 12:34 | PD.ORT.PN ---
Subjective Post Op Day #: 2 Subjective Remarks Patient OOB in chair with NAD. Patient states her pain is mild to moderate today. Objective Vitals Vital Signs Date Time Temp Pulse Resp B/P (MAP) Pulse Ox O2 Delivery O2 Flow Rate FiO2 11/04/17 11:18 98.0 86 18 129/60 (83) 99 11/04/17 07:34 96.9 90 18 118/57 (77) 96 11/04/17 00:05 97.4 85 17 120/56 (77) 96 11/03/17 20:05 99.6 99 17 123/55 (77) 98 11/03/17 17:50 99.0 98 18 108/56 96 11/03/17 16:14 95 21 11/03/17 15:11 18 11/03/17 15:10 99.3 98 18 109/51 95 11/03/17 14:52 99.1 100 18 109/50 94 11/03/17 14:15 98.6 101 18 111/55 97 I/O 11/03/17 11/03/17 11/03/17 11/04/17 11/04/17 11/04/17 07:00 15:00 23:00 07:00 15:00 23:00 Intake Total 240 ml 770 ml 1410 ml 360 ml Output Total 850 ml 2275 ml 450 ml Balance -610 ml 770 ml -865 ml -90 ml Intake Oral 240 ml 960 ml 360 ml Packed Cells 400 ml 400 ml Blood Product IV Normal Saline Flush 370 ml 50 ml Output Urine Total 850 ml 2275 ml 450 ml # Bowel Movements 0 1 0 Result Diagram: 11/04/17 0537 11/03/17 0507 Procedures Left femur periprosthetic supracondylar fracture treated with intramedullary nail Objective Remarks Dressing is C/D/I. EHL/TA/G intact. Calf is soft and nontender. 2+ pedal pulse. + SILT. Knee immobilizer in place. Assessment & Plan Ortho Post Op Day #: 2 Problem List: Assessment and Plan POD #2: Left femur periprosthetic supracondylar fracture treated with intramedullary nail 1. NWB LLE 2. Lovenox followed by ASA for DVT prophylaxis 3. Ice to the left femur PRN 4. Anemia improved but still low. HGB today is 7.6. Medical to manage. Patient would likely benefit from another unit of PRBCs. 5. Anticipatory discharge to SNF on Saturday or Saturday. 6. F/U with Dr. Kincaid or [facility] Dorsey in 1-2 weeks. Alex Duque Nov 04, 2017 12:34
[2017-11-04 14:41] VITALS: BP 107/56; PULSE 84; RESP 17; TEMP 98.6; O2SAT 98
[2017-11-04 14:55] VITALS: BP 116/55; PULSE 79; RESP 17; TEMP 97.4; O2SAT 98
[2017-11-04 20:16] VITALS: BP 139/62; PULSE 83; RESP 18; TEMP 99.2; O2SAT 96
[2017-11-04] MEDS: QUEtiapine FUMARATE 300 MG TAB PO SCH (20:22)
[2017-11-04] MEDS: OLANZapine 10 MG TAB PO SCH (20:23)
[2017-11-05 00:30] VITALS: BP 108/52; PULSE 80; RESP 17; TEMP 96.6; O2SAT 98
[2017-11-05] MEDS: LEVOTHYROXINE SODIUM 75 MCG TAB PO SCH (05:58)
[2017-11-05] MEDS: LEVOTHYROXINE SODIUM 100 MCG TAB PO SCH (05:58)
[2017-11-05 06:55] LABS: AUTOMATED NEUTROPHIL # 1.3 TH/MM3 (1.8-7.7); BASOPHIL % 0.3 % (0.0-2.0); EOSINOPHIL % 1.3 % (0.0-4.0); HEMATOCRIT 23.9 % (35.0-46.0); HEMOGLOBIN 8.2 GM/DL (11.6-15.3); LYMPH % 47.9 % (9.0-44.0); LYMPHOCYTE # 1.5 TH/MM3 (1.0-4.8); MEAN CELL VOLUME 86.2 FL (80.0-100.0); MEAN CORPUSCULAR HEMOGLOBIN 29.5 PG (27.0-34.0); MEAN CORPUSCULAR HGB CONC 34.2 % (32.0-36.0); MEAN PLATELET VOLUME 7.6 FL (7.0-11.0); MONO % 9.1 % (0.0-8.0); MONOCYTE # 0.3 TH/MM3 (0-0.9); NEUT % 41.4 % (16.0-70.0); PLATELET COUNT 110 TH/MM3 (150-450); RED BLOOD COUNT 2.77 MIL/MM3 (4.00-5.30); RED CELL DISTRIBUTION WIDTH 17.4 % (11.6-17.2)
[2017-11-05 08:00] VITALS: BP 128/60; PULSE 78; RESP 18; TEMP 96.7; O2SAT 99
[2017-11-05] MEDS: INSULIN ASPART SUPPLEMENTAL SCALE SQ SCH ×3 (08:00→17:00)
[2017-11-05] MEDS: LISINOPRIL 10 MG TAB PO SCH (08:58)
[2017-11-05] MEDS: INSULIN DETEMIR 100 UNITS/ML VIAL SQ SCH (08:58)
[2017-11-05] MEDS: lamoTRIgine 100 MG TAB PO SCH (08:58)
[2017-11-05] MEDS: SERTRALINE HCL 100 MG TAB PO SCH (08:58)
[2017-11-05] MEDS: MULTIVITAMINS/MINERALS THERAPEUTIC TAB PO SCH (08:59)
[2017-11-05] MEDS: TOPIRAMATE 25 MG TAB PO SCH (08:59)
[2017-11-05] MEDS: PANTOPRAZOLE SOD 40 MG DELAYED RELEASE TAB PO SCH (08:59)
[2017-11-05] MEDS: ACETAMINOPHEN/HYDROcodone 325 MG/5 MG TAB PO PRN ×2 (08:59→15:23)
[2017-11-05] MEDS: METOPROLOL TARTRATE 25 MG TAB PO SCH (08:59)
[2017-11-05] MEDS: SODIUM CHLORIDE 0.9% FLUSH 10 ML FLUSH IV FLUSH SCH (09:00)
[2017-11-05] MEDS: DOCUSATE SODIUM 50 MG/SENNA 8.6 MG TAB PO SCH ×2 (09:00)
[2017-11-05] MEDS: BUDESONIDE-FORMOTEROL 160/4.5 MCG INHALER INH SCH (09:01)
[2017-11-05] MEDS: ENOXAPARIN SODIUM 40 MG/0.4 ML SYRINGE SQ SCH (09:05)
--- NOTE | 2017-11-05 10:12 | HHI.PR ---
Subjective Remarks Follow-up left femur fracture, status post repair 11/02/17-patient seen and examined, was taken to the operating room today and underwent left femur repair. Seen postoperatively in the room, denies any chest pain or shortness of breath. Pain currently controlled 11/03/17-patient seen and examined, reports some left lower extremity soreness. H&H low. Denies any shortness of breath. 11/04/17-patient seen and examined, H&H dropping however no report of any bleeding. Still complains of left lower extremity soreness. Afebrile 11/05/17-patient seen and examined, H&H improved status post blood transfusion. Pain to left was treated tolerable. Denies any chest pain or shortness of breath. Currently afebrile Objective Vitals Vital Signs Date Time Temp Pulse Resp B/P (MAP) Pulse Ox O2 Delivery O2 Flow Rate FiO2 11/05/17 08:00 96.7 78 18 128/60 (82) 99 11/05/17 00:30 96.6 80 17 108/52 (70) 98 11/04/17 20:16 99.2 83 18 139/62 (87) 96 11/04/17 18:18 16 11/04/17 14:55 97.4 79 17 116/55 98 11/04/17 14:41 98.6 84 17 107/56 98 11/04/17 12:40 Nasal Cannula 3.00 11/04/17 11:18 98.0 86 18 129/60 (83) 99 11/04/17 10:44 16 I/O 11/04/17 11/04/17 11/04/17 11/05/17 11/05/17 11/05/17 07:00 15:00 23:00 07:00 15:00 23:00 Intake Total 360 ml 800 ml 690 ml 240 ml Output Total 450 ml 350 ml 250 ml 1000 ml Balance -90 ml 450 ml 440 ml -760 ml Intake Oral 360 ml 800 ml 240 ml 240 ml Packed Cells 400 ml Blood Product IV Normal Saline Flush 50 ml Output Urine Total 450 ml 350 ml 250 ml 1000 ml # Bowel Movements 0 0 0 0 Result Diagram: 11/05/17 0610 11/03/17 0507 Imaging Last Impressions Femur X-Ray 11/02/17 0000 Signed Impressions: Service Date/Time: Thursday, November 02, 2017 10:52 - CONCLUSION: Fluoroscopic images during placement of intramedullary igor fixating distal femoral fracture. Sen Turner MD Head CT 11/01/171846 Signed Impressions: Service Date/Time: Wednesday, November 01, 2017 19:34 - CONCLUSION: No acute hemorrhage, midline shift or extra-axial fluid collections. The examination is somewhat limited due to patient motion during scanning Harman Davis MD Chest X-Ray [id number]/01/[id number] Signed Impressions: Service Date/Time: Wednesday, November 01, 2017 19:18 - CONCLUSION: Stable increased interstitial markings bilaterally. No pneumothorax status post trauma. Harman Davis MD Cervical Spine CT [id number]/01/[id number] Signed Impressions: Service Date/Time: Wednesday, November 01, 2017 19:34 - CONCLUSION: 1. No acute fracture or prevertebral soft tissue swelling. 2. Mild bilateral foraminal narrowing at C6-7. 3. Mild cervical spondylosis at C6-7 and to a lesser extent at C5-6, C4-5 and C7-T1. Harman Davis MD Pelvis X-Ray 11/01/17 0000 Signed Impressions: Service Date/Time: Wednesday, November 01, 2017 19:13 - CONCLUSION: No acute fracture or dislocation. Mild degenerative changes involving the lumbar spine and bilateral hips Harman Davis MD Knee X-Ray 11/01/17 0000 Signed Impressions: Service Date/Time: Wednesday, November 01, 2017 19:21 - CONCLUSION: Acute displaced comminuted fracture involving the left distal femoral shaft. Harman Davis MD Objective Remarks GENERAL: NAD SKIN: Warm and dry. HEAD: Normocephalic. EYES: No scleral icterus. No injection or drainage. NECK: Supple, trachea midline. No JVD or lymphadenopathy. CARDIOVASCULAR: Regular rate and rhythm without murmurs, gallops, or rubs. RESPIRATORY: Breath sounds equal bilaterally. No accessory muscle use. GASTROINTESTINAL: Abdomen soft, non-tender, nondistended. MUSCULOSKELETAL: No cyanosis, or edema. Status post left lower extremity repair , brace in place-neurovascular intact BACK: Nontender without obvious deformity. No CVA tenderness. Procedures Left femur periprosthetic supracondylar fracture treated with intramedullary nail 11/02/17 A/P Problem List: (1) Femur fracture, left ICD Code: S72.92XA - Unspecified fracture of left femur, initial encounter for closed fracture (2) Postoperative anemia due to acute blood loss ICD Code: D62 - Acute posthemorrhagic anemia Assessment and Plan 67-year-old female with 1. Fall/left femur fracture s/p Left femur periprosthetic supracondylar fracture treated with intramedullary nail 11/02/17 Management per orthopedic surgery Continue current postop care PT to treat and eval Lovenox for DVT prophylaxis 2. Diabetes mellitus Continue home Lantus Continue Sliding scale insulin Monitor blood glucose 3. Hypertension Continue metoprolol, lisinopril 4. Seizure disorder Continue Lamictal and Topamax 5. Depression/anxiety Continue Zoloft, olanzapine and quetiapine 6. Hypothyroidism Continue home Synthroid 7. COPD Continue home Advair Duo Nebs 8. Postoperatively anemia due to acute blood loss Transfused total of 3 units packed red blood cell since admission Monitor H&H DVT prophylaxis: Currently on Lovenox however likely would be discharged on Lovenox and aspirin Problem Qualifiers (1) Femur fracture, left: Qualified Codes: S72.362A - Displaced segmental fracture of shaft of left femur , initial encounter for closed fracture Sen Richey MD Nov 05, 2017 10:12
--- NOTE | 2017-11-05 10:30 | HHI.DS ---
Discharge Summary Admission Date Nov 01, 2017 at 21:16 Discharge Date: Nov 05, 2017 Admitting Diagnosis L femur fracture (1) Femur fracture, left ICD Code: S72.92XA - Unspecified fracture of left femur, initial encounter for closed fracture (2) Postoperative anemia due to acute blood loss ICD Code: D62 - Acute posthemorrhagic anemia Procedures Left femur periprosthetic supracondylar fracture treated with intramedullary nail 11/02/17 Brief History - From Admission 67-year-old female with breast cancer undergoing chemotherapy with Dr. Knox along with numerous other comorbid conditions including type 2 diabetes mellitus , hypertension and hyperlipidemia presents to the emergency department for evaluation of a syncopal episode. The patient reports that she was sitting on the toilet after having a bowel movement when she felt a "heat" rising up inside her and she felt lightheaded. She states she attempted to stand and felt that he return, became lightheaded and fell. The patient reports hitting her head, face and left side during her fall. She reports pain in her left leg and across the bridge of her nose. Femur x-ray significant for an acute displaced comminuted fracture involving the left distal femoral shaft. CBC/BMP: 11/05/17 0610 11/03/17 0507 Significant Findings Laboratory Tests Test 11/03/17 05:07 11/03/17 19:40 11/04/17 05:37 11/05/17 06:10 White Blood Count 2.8 TH/MM3 (4.0-11.0) 3.4 TH/MM3 (4.0-11.0) 3.0 TH/MM3 (4.0-11.0) 3.0 TH/MM3 (4.0-11.0) Red Blood Count 2.10 MIL/MM3 (4.00-5.30) 2.94 MIL/MM3 (4.00-5.30) 2.59 MIL/MM3 (4.00-5.30) 2.77 MIL/MM3 (4.00-5.30) Hemoglobin 5.9 GM/DL (11.6-15.3) 8.4 GM/DL (11.6-15.3) 7.6 GM/DL (11.6-15.3) 8.2 GM/DL (11.6-15.3) Hematocrit 17.5 % (35.0-46.0) 25.1 % (35.0-46.0) 22.2 % (35.0-46.0) 23.9 % (35.0-46.0) Platelet Count 107 TH/MM3 (150-450) 123 TH/MM3 (150-450) 106 TH/MM3 (150-450) 110 TH/MM3 (150-450) Neutrophils # (Auto) 1.5 TH/MM3 (1.8-7.7) 1.3 TH/MM3 (1.8-7.7) 1.3 TH/MM3 (1.8-7.7) Creatinine 0.47 MG/DL (0.50-1.00) Random Glucose 142 MG/DL (74-106) Total Protein 5.4 GM/DL (6.4-8.2) Calcium Level 7.3 MG/DL (8.5-10.1) Chloride Level 109 MEQ/L (98-107) Protein Corrected Calcium 8.2 MG/DL (8.5-10.1) Red Cell Distribution Width 17.4 % (11.6-17.2) 17.4 % (11.6-17.2) Lymphocytes (%) (Auto) 46.3 % (9.0-44.0) 47.9 % (9.0-44.0) Monocytes (%) (Auto) 9.1 % (0.0-8.0) Imaging Last Impressions Femur X-Ray 11/02/17 0000 Signed Impressions: Service Date/Time: Thursday, November 02, 2017 10:52 - CONCLUSION: Fluoroscopic images during placement of intramedullary igor fixating distal femoral fracture. Sen Turner MD Head CT 11/01/171846 Signed Impressions: Service Date/Time: Wednesday, November 01, 2017 19:34 - CONCLUSION: No acute hemorrhage, midline shift or extra-axial fluid collections. The examination is somewhat limited due to patient motion during scanning Harman Davis MD Chest X-Ray 11/01/171846 Signed Impressions: Service Date/Time: Wednesday, November 01, 2017 19:18 - CONCLUSION: Stable increased interstitial markings bilaterally. No pneumothorax status post trauma. Harman Davis MD Cervical Spine CT 11/01/171846 Signed Impressions: Service Date/Time: Wednesday, November 01, 2017 19:34 - CONCLUSION: 1. No acute fracture or prevertebral soft tissue swelling. 2. Mild bilateral foraminal narrowing at C6-7. 3. Mild cervical spondylosis at C6-7 and to a lesser extent at C5-6, C4-5 and C7-T1. Harman Davis MD Pelvis X-Ray 11/01/17 0000 Signed Impressions: Service Date/Time: Wednesday, November 01, 2017 19:13 - CONCLUSION: No acute fracture or dislocation. Mild degenerative changes involving the lumbar spine and bilateral hips Harman Davis MD Knee X-Ray 11/01/17 0000 Signed Impressions: Service Date/Time: Wednesday, November 01, 2017 19:21 - CONCLUSION: Acute displaced comminuted fracture involving the left distal femoral shaft. Harman Davis MD PE at Discharge GENERAL: NAD SKIN: Warm and dry. HEAD: Normocephalic. EYES: No scleral icterus. No injection or drainage. NECK: Supple, trachea midline. No JVD or lymphadenopathy. CARDIOVASCULAR: Regular rate and rhythm without murmurs, gallops, or rubs. RESPIRATORY: Breath sounds equal bilaterally. No accessory muscle use. GASTROINTESTINAL: Abdomen soft, non-tender, nondistended. MUSCULOSKELETAL: No cyanosis, or edema. Status post left lower extremity repair , brace in place-neurovascular intact BACK: Nontender without obvious deformity. No CVA tenderness. Hospital Course While in hospital, patient was treated for: 1. Fall/left femur fracture s/p Left femur periprosthetic supracondylar fracture treated with intramedullary nail 11/02/17 Management per orthopedic surgery PT was consulted to treat and eval Lovenox for DVT prophylaxis 2. Diabetes mellitus Treated with home Lantus and Sliding scale insulin 3. Hypertension Treated with metoprolol, lisinopril 4. Seizure disorder Treated with Lamictal and Topamax 5. Depression/anxiety Treated with Zoloft, olanzapine and quetiapine 6. Hypothyroidism Treated with Synthroid 7. COPD Treated with home Advair and Duo Nebs 8. Postoperatively anemia due to acute blood loss Transfused total of 3 units packed red blood cell since admission DVT prophylaxis: Currently on Lovenox however likely would be discharged on Lovenox and aspirin Pt Condition on Discharge: Good Discharge Disposition: Discharge to SNF Discharge Time: > 30 minutes Discharge Instructions DIET: Follow Instructions for: Diabetic Diet Activities you can perform: Regular-No Restrictions Follow up Referrals: Orthopedics with Duke Kincaid MD PCP Follow-up - 2-3 Days New Medications: Aspirin DR (Ecotrin Regular Strength) 325 Mg Tabdr 325 MG PO DAILY for Prevent Blood Clot, #30 TAB 0 Refills Start Aspirin after Lovenox is completed. Commode 3-in-1 (Commode 3-in-1) 1 Mis Mis EA .XX DIRECTED, #1 0 Refills Enoxaparin Inj (Enoxaparin Inj) 40 Mg/0.4 Ml Syr 40 MG SQ DAILY for Blood Clot Prevention, #10 SYRINGE 0 Refills Start Aspirin after Lovenox is completed. Hydrocodone-Acetaminophen ([place]) 5 Mg-325 Mg Tab 1-2 TAB PO Q4H PRN for PAIN, #60 TAB 0 Refills Walker with Front Wheels (Walker with Front Wheels) 1 Mis Mis EA .XX DIRECTED, #1 0 Refills Continued Medications: Albuterol 18 GM Inh (Ventolin Hfa 18 GM Inh) 90 Mcg/Act Aer 2 PUFF INH Q4-6H PRN for SHORTNESS OF BREATH, #1 INHALER 0 Refills Benztropine (Benztropine) 0.5 Mg Tab 1 MG PO DAILY, #30 TAB [address] (Esomeprazole DR) 40 Mg Capdr 40 MG PO DAILY, #30 CAP 0 Refills Fluticasone-Salmeterol Inh (Advair Diskus Inh) 250-50 Mcg/Blist Aer 1 PUFF INH Q12HR, #1 INHALER 0 Refills Rinse mouth after use. Insulin Glargine Inj (Lantus Solostar Pen Inj) 300 Unit/3 Ml Pen 44 UNITS SQ DAILY IN THE AM for Blood Sugar Management, PEN 0 Refills Insulin Glargine Inj (Lantus Solostar Pen Inj) 300 Unit/3 Ml Pen 46 UNITS SQ DAILY IN THE PM for Blood Sugar Management, PEN 0 Refills Insulin Human Regular Inj (Humulin R Inj) 1,000 Unit/10 Ml Vial 1 UNITS SQ SLIDING SCALE DIR for Blood Sugar Management, #10 ML 0 Refills Lamotrigine (Lamotrigine) 100 Mg Tab 100 MG PO DAILY for Control Seizures, #30 TAB 0 Refills Levothyroxine (Levothyroxine) 175 Mcg Tab 175 MCG PO DAILY for Thyroid, TAB 0 Refills Linaclotide (Linzess) 145 Mcg Cap 145 MCG PO DAILY, CAP 0 Refills Lisinopril (Lisinopril) 10 Mg Tab 10 MG PO DAILY, #30 TAB 0 Refills Meloxicam (Meloxicam) 7.5 Mg Tab 7.5 MG PO BID for Arthritis Pain, #180 TAB 0 Refills Metoprolol Tartrate (Metoprolol Tartrate) 25 Mg Tab 25 MG PO BID for Blood Pressure Management, #180 TAB 1 Refill Olanzapine (Olanzapine) 10 Mg Tab 10 MG PO HS, #90 TAB 0 Refills Prochlorperazine Maleate (Prochlorperazine Maleate) 10 Mg Tab 10 MG PO Q6H PRN for NAUSEA OR VOMITING, TAB 0 Refills Quetiapine (Quetiapine) 300 Mg Tab 600 MG PO HS, #60 TAB 0 Refills Sertraline (Zoloft) 100 Mg Tab 100 MG PO DAILY, #30 TAB 0 Refills Topiramate (Topamax) 50 Mg Tab 50 MG PO BID for Control Seizures, #60 TAB 0 Refills Discontinued Medications: Ondansetron (Zofran) 8 Mg Tab 8 MG PO TID PRN for NAUSEA OR VOMITING, TAB 0 Refills Sen Richey MD Nov 05, 2017 10:30
[2017-11-05 10:39] VITALS: O2SAT 95
[2017-11-05 12:00] VITALS: BP 123/69; PULSE 77; RESP 18; TEMP 97.9; O2SAT 95
[2017-11-05 16:00] VITALS: BP 127/68; PULSE 78; RESP 18; TEMP 97.5; O2SAT 98
[2017-11-05] MEDS ORDERED: SODIUM CHLORIDE 0.9% FLUSH 10 ML FLUSH IV FLUSH PRN (16:15)
--- NOTE | 2017-11-05 16:38 | PD.ORT.PN ---
Subjective Post Op Day #: 3 Subjective Remarks Patient OOB in chair with NAD. Patient states her pain continues to be mild to moderate about the left leg. Objective Vitals Vital Signs Date Time Temp Pulse Resp B/P (MAP) Pulse Ox O2 Delivery O2 Flow Rate FiO2 11/05/17 16:00 97.5 78 18 127/68 (87) 98 11/05/17 12:00 97.9 77 18 123/69 (87) 95 11/05/17 10:39 95 21 11/05/17 08:00 96.7 78 18 128/60 (82) 99 11/05/17 00:30 96.6 80 17 108/52 (70) 98 11/04/17 20:16 99.2 83 18 139/62 (87) 96 11/04/17 18:18 16 I/O 11/04/17 11/04/17 11/04/17 11/05/17 11/05/17 11/05/17 07:00 15:00 23:00 07:00 15:00 23:00 Intake Total 360 ml 800 ml 690 ml 240 ml 600 ml Output Total 450 ml 350 ml 250 ml 1000 ml 150 ml Balance -90 ml 450 ml 440 ml -760 ml 450 ml Intake Oral 360 ml 800 ml 240 ml 240 ml 600 ml Packed Cells 400 ml Blood Product IV Normal Saline Flush 50 ml Output Urine Total 450 ml 350 ml 250 ml 1000 ml 150 ml # Bowel Movements 0 0 0 0 0 Result Diagram: 11/05/17 0610 11/03/17 0507 Procedures Left femur periprosthetic supracondylar fracture treated with intramedullary nail Objective Remarks Dressing changed and is C/D/I. EHL/TA/G intact. Calf is soft and nontender. 2 + pedal pulse. + SILT. Knee immobilizer in place. Assessment & Plan Ortho Post Op Day #: 3 Problem List: Assessment and Plan POD #3: Left femur periprosthetic supracondylar fracture treated with intramedullary nail 1. NWB LLE 2. Lovenox followed by ASA for DVT prophylaxis 3. Ice to the left femur PRN 4. Anemia improved with transfusions. 5. Anticipatory discharge to SNF today. 6. F/U with Dr. Kincaid or MARCI Dorsey in 1-2 weeks. Ortho signing off. Alex Duque Nov 05, 2017 16:38
[2017-11-05 16:57] VITALS: O2SAT 97
== END 2017-11-05 19:17 | DRG 481 ==
LOC: NEPE 18:31 → NEDH 21:16 → N06A 22:30
PROVIDERS: ADMIT Internal Medicine; ATTEND Internal Medicine
PROC: 0QS906Z Reposition Left Femoral Shaft with Intramedullary Internal Fixation Device, Open Approach (ICD-10-PCS; principal; 2017-11-02 09:32)
PROC: 30233N1 Transfusion of Nonautologous Red Blood Cells into Peripheral Vein, Percutaneous Approach (ICD-10-PCS; 2017-11-03)
DX: S72.352A Displaced comminuted fracture of shaft of left femur, initial encounter for closed fracture (principal); D62 Acute posthemorrhagic anemia; E11.42 Type 2 diabetes mellitus with diabetic polyneuropathy; Z79.4 Long term (current) use of insulin; C50.919 Malignant neoplasm of unspecified site of unspecified female breast; W18.39XA Other fall on same level, initial encounter; Y92.002 Bathroom of unspecified non-institutional (private) residence as the place of occurrence of the external cause; R55 Syncope and collapse; Z96.652 Presence of left artificial knee joint; J44.9 Chronic obstructive pulmonary disease, unspecified; E03.9 Hypothyroidism, unspecified; G40.909 Epilepsy, unspecified, not intractable, without status epilepticus; G43.909 Migraine, unspecified, not intractable, without status migrainosus; G44.009 Cluster headache syndrome, unspecified, not intractable; I10 Essential (primary) hypertension; E78.5 Hyperlipidemia, unspecified; Z86.718 Personal history of other venous thrombosis and embolism; G47.33 Obstructive sleep apnea (adult) (pediatric); K58.9 Irritable bowel syndrome, unspecified; K21.9 Gastro-esophageal reflux disease without esophagitis; M06.9 Rheumatoid arthritis, unspecified; F41.9 Anxiety disorder, unspecified; Z87.891 Personal history of nicotine dependence
CPT/HCPCS: 36430; 51702; 70450; 71045; 72125; 72170; 73552; 73564; 76000; 80048; 81001; 82948; 84155; 85025; 86850; 86900; 86901; 86920; 93005; 96374; 96376; C1713; C1769; J0690; J1100; J1170; J1580; J1642; J1650; J1815; J1940; J2250; J2270; J2370; J2405; J2710; J3010; J3370; J7030; J7050; J7120; J7613; L1830; P9016

== ENCOUNTER 2018-03-13 01:08 | Observation (INO) | payer MEDICARE, MEDICAID ==
[2018-03-13] VITALS (9 sets, daily range): BP systolic 118–179; BP diastolic 57–85; PULSE 75–97; RESP 18–20; TEMP 96.5–98.4; O2SAT 92–96
[~2018-03-13 01:08] MED LIST changes: +ADVA250A INH; +ASPI-146 PO; -CHOL1000 PO; +COMMODE 3-IN-11 MIS; +DEXTROSE 50% IN WATER 50 ML VIAL(D50) IV PUSH PRN; +ENOX40IN SQ; +ESOM1CAP16 PO; +GLUCAGON 1 MG/ML VIAL OTHER PRN; -INSU-101 SQ; -LEVA750T9 PO; +MORPHINE SULFATE 2 MG/ML SYRINGE IV PUSH PRN; -NEXI40GR PO; +NORC5TAB PO; -PRED20 PO; +PROC10TA PO; +PROCHLORPERAZINE INJ 10 MG/2 ML VIAL IV PUSH PRN; -SENO8.6T5 PO; +SODIUM CHLOR 0.9% 1000 ML INJ 1,000 ML IV SCH; +WALKER WHEELS/F1 MIS
[2018-03-13] MEDS ORDERED: SODIUM CHLOR 0.9% 1000 ML INJ 1,000 ML IV SCH (01:30)
[2018-03-13] MEDS: cefTRIAXone INJ 1,000 MG in SODIUM CHLORIDE 0.9% INJ 100 ML IV SCH (01:45)
[2018-03-13] MEDS: MORPHINE SULFATE 4 MG/ML INJ IV PRN ×2 (01:47→07:32)
[2018-03-13 05:57] LABS: AUTOMATED NEUTROPHIL # 5.5 TH/MM3 (1.8-7.7); BASOPHIL % 0.3 % (0.0-2.0); EOSINOPHIL # 0.6 TH/MM3 (0-0.4); EOSINOPHIL % 6.3 % (0.0-4.0); HEMATOCRIT 32.8 % (35.0-46.0); HEMOGLOBIN 10.9 GM/DL (11.6-15.3); LYMPH % 24.1 % (9.0-44.0); LYMPHOCYTE # 2.1 TH/MM3 (1.0-4.8); MEAN CELL VOLUME 87.5 FL (80.0-100.0); MEAN CORPUSCULAR HEMOGLOBIN 29.2 PG (27.0-34.0); MEAN CORPUSCULAR HGB CONC 33.3 % (32.0-36.0); MEAN PLATELET VOLUME 8.6 FL (7.0-11.0); MONO % 7.3 % (0.0-8.0); MONOCYTE # 0.6 TH/MM3 (0-0.9); PLATELET COUNT 183 TH/MM3 (150-450); RED BLOOD COUNT 3.75 MIL/MM3 (4.00-5.30); RED CELL DISTRIBUTION WIDTH 14.7 % (11.6-17.2); WHITE BLOOD COUNT 8.8 TH/MM3 (4.0-11.0)
[2018-03-13 06:03] LABS: BICARBONATE 28.7 MEQ/L (21.0-32.0); CALCIUM 8.7 MG/DL (8.5-10.1)
[2018-03-13 06:07] LABS: CREATININE 0.71 MG/DL (0.50-1.00)
[2018-03-13] MEDS: SODIUM CHLORIDE 0.9% FLUSH 10 ML FLUSH IV FLUSH SCH ×2 (07:32→21:02)
[2018-03-13] MEDS: INSULIN ASPART SUPPLEMENTAL SCALE SQ SCH ×4 (07:32→21:00)
[2018-03-13] MEDS ORDERED: HYDROmorphone HCL 2 MG TAB PO ONE (09:15)
[2018-03-13] MEDS ORDERED: PROCHLORPERAZINE MALEATE 10 MG TAB PO PRN (09:15)
[2018-03-13] MEDS ORDERED: ALBUTEROL SULFATE 90 MCG/ACT HFA 8 GM INHALER INH PRN (09:15)
[2018-03-13] MEDS: LISINOPRIL 10 MG TAB PO SCH (09:55)
[2018-03-13] MEDS: PANTOPRAZOLE SOD 40 MG DELAYED RELEASE TAB PO SCH (09:55)
[2018-03-13] MEDS: METOPROLOL TARTRATE 25 MG TAB PO SCH ×2 (09:56→21:02)
[2018-03-13] MEDS: ACETAMINOPHEN/HYDROcodone 325 MG/5 MG TAB PO PRN ×3 (10:56→21:11)
--- NOTE | 2018-03-13 11:16 | HHI.HP ---
[facility]Staff Admission Diagnosis Diagnoses: Chief Complaint: Possible syncopal Travel History International Travel<30 Days: No Contact w/Intl Traveler <30 Da: No Traveled to Known Affected Are: No History of Present Illness This patient is a 67-year-old female with a history of diabetes and COPD. Patient says she got up to go to the bathroom and thinks she blacked out. She came to the hospital for ER evaluation after this fall. She did sustain some muscular skeletal injury without fracture evident on imaging. She says her back hurts 8 out of 10, there is also pain in the right shoulder and side and leg. She has difficulty ambulate due to the pain. She notes no nausea and vomiting but has chronic and intermittent diarrhea and constipation due to her irritable bowel syndrome. She is currently chemotherapy with the oncology team for breast cancer. She has not had any fevers or chills or dysuria. She was evaluated for fall several months ago and ended up with a left hip fracture which is status post repair. After that she was on Lovenox and aspirin for DVT prophylaxis does not take anything currently. The pain has not been relieved with morphine. Patient takes Mobic and hydrocodone at home for chronic joint pain. She has been recommended for observation the hospital due to these complaints Review of Systems Constitutional: DENIES: Diaphoretic episodes, Fatigue, Fever, Weight gain, Weight loss, Chills, Dizziness, Change in appetite, Night Sweats Endocrine: DENIES: Abnorml menstrual pattern, Heat/cold intolerance, Polydipsia , Polyuria, Polyphagia Eyes: DENIES: Blurred vision, Diplopia, Eye inflammation, Eye pain, Vision loss , Photosensitivity, Double Vision Ears, nose, mouth, throat: DENIES: Tinnitus, Hearing loss, Vertigo, Nasal discharge, Oral lesions, Throat pain, Hoarseness, Ear Pain, Running Nose, Epistaxis, Sinus Pain, Toothache, Odynophagia Respiratory: DENIES: Apneas, Cough, Snoring, Wheezing, Hemoptysis, Sputum production, Shortness of breath Cardiovascular: DENIES: Chest pain, Palpitations, Syncope, Dyspnea on Exertion , PND, Lower Extremity Edema, Orthopnea, Claudication Gastrointestinal: COMPLAINS OF: Constipation, Diarrhea, DENIES: Abdominal pain , Black stools, Bloody stools, Nausea, Vomiting, Difficulty Swallowing, Anorexia Genitourinary: DENIES: Abnormal vaginal bleeding, Dysmenorrhea, Dyspareunia, Sexual dysfunction, Urinary frequency, Urinary incontinence, Urgency, Hematuria , Dysuria, Nocturia, Vaginal discharge Musculoskeletal: COMPLAINS OF: Joint pain, Back pain, DENIES: Muscle aches, Stiffness, Joint Swelling, Neck pain Integumentary: DENIES: Abnormal pigmentation, Pruritus, Rash, Nail changes, Breast masses, Breast skin changes, Nipple discharge Hematologic/lymphatic: DENIES: Bruising, Lymphadenopathy Immunologic/allergic: DENIES: Eczema, Urticaria Neurologic: COMPLAINS OF: Abnormal gait, Seizures, DENIES: Headache, Localized weakness, Paresthesias, Speech Problems, Tremor, Poor Balance Psychiatric: DENIES: Anxiety, Confusion, Mood changes, Depression, Hallucinations, Agitation, Suicidal Ideation, Homicidal Ideation, Delusions Except as stated in HPI: all other systems reviewed are Neg Past Family Social History Past Medical History Diabetes mellitus type 2 Rheumatoid arthritis Chronic anemia Hepatitis C, status post treatment Inflammatory bowel disease COPD Hypertension Seizure disorder Bipolar disorder hyperlipidemia Breast cancer currently in chemotherapy Past Surgical History Multiple orthopedic surgeries Hysterectomy Tubal Bilateral cataracts Double mastectomy Reported Medications Reviewed in the EMR, does not take aspirin or Lovenox Allergies: Coded Allergies: asparagus (Verified Allergy, Severe, Wheezing, 03/12/18) chocolate flavor (Verified Allergy, Severe, Wheezing, 03/12/18) docetaxel (Verified Allergy, Severe, Shortness of breath, wheezing, chest pain, facial flushing, 03/12/18) Active Ordered Medications Reviewed in the EMR Family History Father of diabetes and cardiac complications Mother at 85 with cancer nonspecified Social History No current tobacco, quit in 2004 after [id number]-[id number] history Lives with her family No alcohol Physical Exam Vital Signs Vital Signs Date Time Temp Pulse Resp B/P (MAP) Pulse Ox O2 Delivery O2 Flow Rate FiO2 03/13/18 08:57 98.0 96 18 179/85 (116) 93 03/13/18 04:00 98.2 90 20 166/80 (108) 94 03/13/18 01:52 88 03/13/18 01:25 97.0 93 20 171/77 (108) 96 03/13/18 01:25 97.0 93 20 171/77 (108) 96 Physical Exam GENERAL: This is a well-nourished, well-developed patient, complaining of musculoskeletal pain in the lower back and shoulder and radiating down the legs SKIN: No rashes, ecchymoses or lesions. Cool and dry. HEAD: Atraumatic. Normocephalic. No temporal or scalp tenderness. EYES: Pupils equal round and reactive. Extraocular motions intact. No scleral icterus. No injection or drainage. ENT: Nose without bleeding, purulent drainage or septal hematoma. Throat without erythema, tonsillar hypertrophy or exudate. Uvula midline. Airway patent. NECK: Trachea midline. No JVD or lymphadenopathy. Supple, nontender, no meningeal signs. CARDIOVASCULAR: Regular rate and rhythm without murmurs, gallops, or rubs. RESPIRATORY: Clear to auscultation. Breath sounds equal bilaterally. No wheezes , rales, or rhonchi. GASTROINTESTINAL: Abdomen soft, non-tender, nondistended. No hepato-splenomegaly , or palpable masses. No guarding. MUSCULOSKELETAL: Extremities without clubbing, cyanosis, or edema. No joint tenderness, effusion, or edema noted. No calf tenderness. Negative Homans sign bilaterally. NEUROLOGICAL: Awake and alert. Cranial nerves II through XII intact. Motor and sensory grossly within normal limits. Five out of 5 muscle strength in all muscle groups. Normal speech. Laboratory Laboratory Tests Test 03/13/18 04:50 White Blood Count 8.8 Red Blood Count 3.75 Hemoglobin 10.9 Hematocrit 32.8 Mean Corpuscular Volume 87.5 Mean Corpuscular Hemoglobin 29.2 Mean Corpuscular Hemoglobin Concent 33.3 Red Cell Distribution Width 14.7 Platelet Count 183 Mean Platelet Volume 8.6 Neutrophils (%) (Auto) 62.0 Lymphocytes (%) (Auto) 24.1 Monocytes (%) (Auto) 7.3 Eosinophils (%) (Auto) 6.3 Basophils (%) (Auto) 0.3 Neutrophils # (Auto) 5.5 Lymphocytes # (Auto) 2.1 Monocytes # (Auto) 0.6 Eosinophils # (Auto) 0.6 Basophils # (Auto) 0.0 CBC Comment DIFF FINAL Differential Comment Blood Urea Nitrogen 14 Creatinine 0.71 Random Glucose 113 Calcium Level 8.7 Sodium Level 144 Potassium Level 3.7 Chloride Level 107 Carbon Dioxide Level 28.7 Anion Gap 8 Estimat Glomerular Filtration Rate 82 Result Diagram: 03/13/1844903/13/18449 Imaging Chest x-ray and CT of the head reviewed from outside facility Unremarkable Caprini VTE Risk Assessment Caprini VTE Risk Assessment: Mod/High Risk (score >= 2) Caprini Risk Assessment Model Point Value = 1 Point Value = 2 Point Value = 3 Point Value = 5 Age 41-60 Minor surgery BMI > 25 kg/m2 Swollen legs Varicose veins or History of unexplained or recurrent spontaneous Oral contraceptives or hormone replacement Sepsis (< 1 month) Serious lung disease, including pneumonia (< 1 month) Abnormal pulmonary function Acute myocardial infarction Congestive heart failure (< 1 month) History of inflammatory bowel disease Medical patient at bed rest Age 61-74 Arthroscopic surgery Major open surgery (> 45 min) Laparoscopic surgery (> 45 min) Malignancy Confined to bed (> 72 hours) Immobilizing plaster cast Central venous access Age >= 75 History of VTE Family history of VTE Factor V Leiden Prothrombin [id number] Lupus anticoagulant Anticardiolipin antibodies Elevated serum homocysteine Heparin-induced thrombocytopenia Other congenital or acquired thrombophilia Stroke (< 1 month) Elective arthroplasty Hip, pelvis, or leg fracture Acute spinal cord injury (< 1 month) Prophylaxis Regimen Total Risk Factor Score Risk Level Prophylaxis Regimen 0-1 Low Early ambulation 2 Moderate Order ONE of the following: *Sequential Compression Device (SCD) *Heparin 5000 units SQ BID 3-4 Higher Order ONE of the following medications: *Heparin 5000 units SQ TID *Enoxaparin/Lovenox 40 mg SQ daily (WT < 150 kg, CrCl > 30 mL/min) *Enoxaparin/Lovenox 30 mg SQ daily (WT < 150 kg, CrCl > 10-29 mL/min) *Enoxaparin/Lovenox 30 mg SQ BID (WT < 150 kg, CrCl > 30 mL/min) AND/OR *Sequential Compression Device (SCD) 5 or more Highest Order ONE of the following medications: *Heparin 5000 units SQ TID (Preferred with Epidurals) *Enoxaparin/Lovenox 40 mg SQ daily (WT < 150 kg, CrCl > 30 mL/min) *Enoxaparin/Lovenox 30 mg SQ daily (WT < 150 kg, CrCl > 10-29 mL/min) *Enoxaparin/Lovenox 30 mg SQ BID (WT < 150 kg, CrCl > 30 mL/min) AND *Sequential Compression Device (SCD) Assessment and Plan Problem List: (1) Chronic pain of left knee ICD Code: M25.562 - Pain in left knee; G89.29 - Other chronic pain Status: Acute Plan: Patient on Mobic and hydrocodone at home which we will continue (2) Diabetes type 2, uncontrolled ICD Code: E11.65 - Type 2 diabetes mellitus with hyperglycemia Status: Acute Plan: Patient has recently been on toujeo uncontrolled poor adherence (3) HTN (hypertension) ICD Code: I10 - Essential (primary) hypertension Plan: Somewhat elevated We will resume her home medications and control her pain and follow clinically (4) Hypothyroidism ICD Code: E03.9 - Hypothyroidism, unspecified Status: Acute Plan: Continue home Synthroid (5) Bipolar disorder ICD Code: F31.9 - Bipolar disorder, unspecified Status: Acute Plan: Stable on home regimen which we will continue (6) COPD (chronic obstructive pulmonary disease) ICD Code: J44.9 - Chronic obstructive pulmonary disease, unspecified Status: Acute Plan: No evidence of acute exacerbation, continue home medications (7) Epilepsy ICD Code: G40.909 - Epilepsy Status: Acute Plan: Continue home medications No seizures (8) Syncope ICD Code: R55 - Syncope and collapse Plan: Etiology unclear It is unclear if the patient actually had a true syncopal episode versus seizure versus orthostasis versus hypoglycemia workup in progress Continue with PT/OT Pain management We will follow-up MRI of spine post trauma given severity of pain and inability to ambulate Code Status Full code Matilde Murrell MD Mar 13, 2018 11:15
[2018-03-13] MEDS ORDERED: GADODIAMIDE PF 287 MG/ML 20 ML VIAL (for RAD MRI) IVCONTRAST ONE (12:00)
--- NOTE | 2018-03-13 15:03 | RADRPT ---
EXAM DATE: 03/13/2018 12:05 PM EDT AGE/SEX: 67 years / Female INDICATIONS: Trauma. Fell at home one day ago, pain in lower back. CLINICAL DATA: This is the patient's initial encounter. Patient reports that signs and symptoms have been present for 1 day and indicates a pain score of 8/10. MEDICAL/SURGICAL HISTORY: Carcinoma, breast. Hypertension. Diabetes mellitus type II. Hepati tis C. Cholecystectomy. Mastectomy, bilateral. Left femur. COMPARISON: [facility], CT ABDOMEN & PELVIS W/O CONTRAST, 03/12/2018. . TECHNIQUE: Multiplanar, multisequence MRI examination of the lumbar spine was performed without and with 16 ml Omniscan (gadodiamide) contrast as a single exam dose. FINDINGS: There is no acute compression fracture, spondylolisthesis or spondylolysis. Loss of disc height and s ignal is noted at L4-5 and to a lesser degree at L5-S1 and L3-4. There is relative maintenance of dis c height and signal at L1-2 and L2-3. Approximately 3.5 cm right renal cyst is noted. Uncomplicated c olonic diverticulosis is noted. No abnormally enhancing lesions are noted. T12-L1: The thecal sac has a normal diameter. Minimal diffuse disc bulge is noted. No evidence of d isc protrusion. The neural foramina are patent bilaterally. L1-L2: The thecal sac has a normal diameter. Very minimal diffuse disc bulge is noted. No evidence of disc protrusion. The neural foramina are patent bilaterally. L2-L3: The thecal sac has a normal diameter. Minimal diffuse disc bulge is noted. Mild facet joint hypertrophy is noted bilaterally. No evidence of disc protrusion. The neural foramina are patent kayden aterally. L3-L4: Minimal diffuse disc bulge, facet joint hypertrophy and ligaments laxity are noted resulting in minimal bilateral foraminal narrowing but no spinal stenosis. No focal disc herniation is noted. L4-L5: Minimal diffuse asymmetric disc bulge to the right, facet joint hypertrophy and ligaments la xity are noted resulting in mild right neuroforaminal narrowing and minimal left neuroforaminal narro wing but no spinal stenosis. No focal disc herniation is noted. L5-S1: Minimal diffuse disc bulge and facet joint hypertrophy are noted resulting in ynil-ie-wmasgs te bilateral foraminal narrowing but no spinal stenosis. No focal disc herniation is noted. CONCLUSION: 1. No acute compression fracture, spondylolisthesis or spondylolysis. 2. Mild to moderate bilateral foraminal narrowing at L5-S1, mild right neuroforaminal narrowing and minimal left neuroforaminal narrowing at L4-5, and minimal bilateral foraminal narrowing at L3-4. 3. Degenerative disc disease at T12-L1, L3-4, L4-5 and L5-S1. 4. 3.5 cm right renal cyst. 5. Uncomplicated colonic diverticulosis. Electronically signed by: Harman Davis MD 03/13/2018 3:02 PM EDT
[2018-03-13] MEDS ORDERED: BISACODYL EC 5 MG TABEC PO ONE (15:15)
[2018-03-13] MEDS ORDERED: CYCLOBENZAPRINE HCL 10 MG TAB PO PRN (15:15)
[2018-03-13] MEDS ORDERED: MAGNESIUM HYDROXIDE SUSP 30 ML CUP PO ONE (15:15)
[2018-03-13] MEDS ORDERED: CYCLOBENZAPRINE HCL 10 MG TAB PO ONE (15:15)
[2018-03-13] MEDS ORDERED: PILL SPLITTER OTHER PRN (15:15)
[2018-03-13] MEDS: POLYETHYLENE GLYCOL 17 GM PKG PO SCH (15:51)
--- NOTE | 2018-03-13 20:56 | EKG ---
Date Performed: 03/13/2018 Time Performed: 14:11:58 PTAGE: 67 years EKG: Sinus rhythm WITH FIRST DEGREE AV BLOCK ABNORMAL ECG PREVIOUS TRACING : 11/01/2017 18.56 No significant change from previous tracing noted. DOCTOR: Mason Spicer Interpretating Date/Time 03/13/2018 20:54:15
[2018-03-13] MEDS ORDERED: METOPROLOL TARTRATE 25 MG TAB PO SCH (21:00)
[2018-03-13] MEDS: BUDESONIDE-FORMOTEROL 160/4.5 MCG INHALER INH SCH (21:01)
[2018-03-13] MEDS: OLANZapine 10 MG TAB PO SCH (21:02)
[2018-03-13] MEDS: TOPIRAMATE 25 MG TAB PO SCH (21:02)
[2018-03-13] MEDS: MELOXICAM 7.5 MG TAB PO SCH (21:02)
[2018-03-13] MEDS: QUEtiapine FUMARATE 300 MG TAB PO SCH (21:10)
[2018-03-13] MEDS: INSULIN DETEMIR 100 UNITS/ML VIAL SQ SCH (21:17)
[2018-03-14] VITALS (8 sets, daily range): BP systolic 77–122; BP diastolic 45–66; PULSE 77–85; RESP 18–20; TEMP 96.1–97.1; O2SAT 92–95
[2018-03-14] MEDS: ACETAMINOPHEN/HYDROcodone 325 MG/5 MG TAB PO PRN ×3 (02:31→20:20)
[2018-03-14] MEDS: cefTRIAXone INJ 1,000 MG in SODIUM CHLORIDE 0.9% INJ 100 ML IV SCH (02:31)
[2018-03-14] MEDS: LEVOTHYROXINE SODIUM 100 MCG TAB PO SCH (06:38)
[2018-03-14] MEDS: LEVOTHYROXINE SODIUM 75 MCG TAB PO SCH (06:39)
[2018-03-14] MEDS: INSULIN ASPART SUPPLEMENTAL SCALE SQ SCH ×4 (08:00→20:24)
[2018-03-14] MEDS: POLYETHYLENE GLYCOL 17 GM PKG PO SCH (08:19)
[2018-03-14] MEDS: BUDESONIDE-FORMOTEROL 160/4.5 MCG INHALER INH SCH ×2 (08:19→20:22)
[2018-03-14] MEDS: INSULIN DETEMIR 100 UNITS/ML VIAL SQ SCH ×2 (08:20→20:22)
[2018-03-14] MEDS: PANTOPRAZOLE SOD 40 MG DELAYED RELEASE TAB PO SCH (08:22)
[2018-03-14] MEDS: lamoTRIgine 100 MG TAB PO SCH (08:22)
[2018-03-14] MEDS: LISINOPRIL 10 MG TAB PO SCH (08:22)
[2018-03-14] MEDS: METOPROLOL TARTRATE 25 MG TAB PO SCH (08:22)
[2018-03-14] MEDS: SERTRALINE HCL 100 MG TAB PO SCH (08:22)
[2018-03-14] MEDS: TOPIRAMATE 25 MG TAB PO SCH ×2 (08:22→20:20)
[2018-03-14] MEDS: SODIUM CHLORIDE 0.9% FLUSH 10 ML FLUSH IV FLUSH SCH ×2 (08:25→20:22)
[2018-03-14] MEDS: MELOXICAM 7.5 MG TAB PO SCH (08:33)
[2018-03-14] MEDS: BENZTROPINE MESYLATE 1 MG TAB PO SCH (08:33)
[2018-03-14] MEDS ORDERED: LISINOPRIL 10 MG TAB PO SCH (09:00)
[2018-03-14] MEDS: LINACLOTIDE 145 MCG PO SCH (09:00)
--- NOTE | 2018-03-14 09:49 | HHI.FF ---
Face to Face Verification Diagnosis: (1) Diabetes type 2, uncontrolled (2) COPD (chronic obstructive pulmonary disease) (3) Hypertension, goal below 140/90 Physical Therapy Order: Evaluate and Treat, Improve ambulation, Strength and gait training Home Health Nursing Order: Medical education Nursing assessment with vital signs I have seen patient Ara Muse on 03/14/18. My clinical findings support the need for the requested home health care services because: Ltd mobility - disease progression High risk of falls I certify that my clinical findings support that this patient is homebound because: Impaired cognitive ability/safety Unsteady gait/balance Matilde Murrell MD Mar 14, 2018 09:49
[2018-03-14] MEDS ORDERED: SODIUM CHLORID 0.9% 500 ML INJ 500 ML IV ONE (10:00)
[2018-03-14] MEDS ORDERED: IBUPROFEN 800 MG TAB PO PRN (10:00)
[2018-03-14] MEDS ORDERED: LACTULOSE SYRUP 20 GM/30 ML CUP PO ONE (10:00)
--- NOTE | 2018-03-14 10:23 | HHI.PR ---
Subjective Remarks Patient seen and evaluated today in follow-up for possible syncopal episode. Patient has been hypertensive today. She has had improvement in her pain management and has been out of the chair with physical therapy. No bowel movement yet Objective Vitals Vital Signs Date Time Temp Pulse Resp B/P (MAP) Pulse Ox O2 Delivery O2 Flow Rate FiO2 03/14/18 09:33 86/53 (64) 89/50 (63) 77/45 (56) 03/14/18 08:20 79 03/14/18 07:50 97.1 82 18 116/64 (81) 95 03/14/18 04:00 96.2 77 18 106/57 (73) 93 03/14/18 00:00 96.5 85 18 122/66 (84) 93 03/13/18 20:00 83 03/13/18 20:00 97.7 89 18 122/73 (89) 93 03/13/18 16:49 96.5 81 18 118/60 (79) 92 03/13/18 15:05 75 03/13/18 12:00 98.4 88 19 119/57 (77) 92 119/64 (82) 129/73 (91) I/O 03/13/18 03/13/18 03/13/18 03/14/18 03/14/18 03/14/18 07:00 15:00 23:00 07:00 15:00 23:00 Intake Total 1140 ml 412 ml 220 ml Output Total 1000 ml 1000 ml 700 ml Balance 140 ml 412 ml -1000 ml -480 ml Intake Oral 720 ml 120 ml IV Total 420 ml 412 ml 100 ml Output Urine Total 1000 ml 1000 ml 700 ml # Bowel Movements 0 Result Diagram: 03/13/18 0450 03/13/18 0450 Imaging Last Impressions Lumbar Spine MRI 03/13/18 0000 Signed Impressions: CONCLUSION: 1. No acute compression fracture, spondylolisthesis or spondylolysis. 2. Mild to moderate bilateral foraminal narrowing at L5-S1, mild right neurofo raminal narrowing and minimal left neuroforaminal narrowing at L4-5, and minima l bilateral foraminal narrowing at L3-4. 3. Degenerative disc disease at T12-L1, L3-4, L4-5 and L5-S1. 4. 3.5 cm right renal cyst. 5. Uncomplicated colonic diverticulosis. Objective Remarks GENERAL: This is a well-nourished, well-developed patient, in no apparent distress. CARDIOVASCULAR: Regular rate and rhythm without murmurs, gallops, or rubs. RESPIRATORY: Clear to auscultation. Breath sounds equal bilaterally. No wheezes , rales, or rhonchi. GASTROINTESTINAL: Abdomen soft, non-tender, nondistended. Normal active bowel sounds MUSCULOSKELETAL: Extremities without clubbing, cyanosis, or edema. NEURO: Alert & Oriented x4 to person, place, time, situation. Moves all ext x4 A/P Problem List: (1) Chronic pain of left knee ICD Code: M25.562 - Pain in left knee; G89.29 - Other chronic pain Status: Acute Plan: Continue with ibuprofen for now (2) Diabetes type 2, uncontrolled ICD Code: E11.65 - Type 2 diabetes mellitus with hyperglycemia Status: Acute Plan: Patient has recently been on toujeo Blood sugar has been in the 80s-100s on controlled environment and diet (3) HTN (hypertension) ICD Code: I10 - Essential (primary) hypertension Plan: Hypotensive today Hold narcotics IV hydration (4) Hypothyroidism ICD Code: E03.9 - Hypothyroidism, unspecified Status: Acute Plan: Continue home Synthroid (5) Bipolar disorder ICD Code: F31.9 - Bipolar disorder, unspecified Status: Acute Plan: Stable on home regimen which we will continue (6) COPD (chronic obstructive pulmonary disease) ICD Code: J44.9 - Chronic obstructive pulmonary disease, unspecified Status: Acute Plan: No evidence of acute exacerbation, continue home medications (7) Epilepsy ICD Code: G40.909 - Epilepsy Status: Acute Plan: Continue home medications No seizures (8) Syncope ICD Code: R55 - Syncope and collapse Plan: Etiology unclear It is unclear if the patient actually had a true syncopal episode versus seizure versus orthostasis versus hypoglycemia workup in progress Improve with PT Pain management Signs of fracture and pain is better controlled with improved mobility Discharge Planning Likely discharge in a.m. with home health pending resolution of hypotension Matilde Murrell MD Mar 14, 2018 10:22
[2018-03-14] MEDS: QUEtiapine FUMARATE 300 MG TAB PO SCH (20:21)
[2018-03-14] MEDS: OLANZapine 10 MG TAB PO SCH (20:21)
[2018-03-14] MEDS ORDERED: RESP: ALBUTEROL 2.5 MG/IPRATROPIUM 0.5 MG NEB (PRN) NEB (21:30)
[2018-03-15] VITALS: BP 99/57; PULSE 79; RESP 20; TEMP 97.2; O2SAT 90
[2018-03-15] MEDS: cefTRIAXone INJ 1,000 MG in SODIUM CHLORIDE 0.9% INJ 100 ML IV SCH (02:12)
[2018-03-15] MEDS: SODIUM CHLORIDE 0.9% FLUSH 10 ML FLUSH IV FLUSH PRN ×2 (02:12→06:32)
[2018-03-15] MEDS: LEVOTHYROXINE SODIUM 75 MCG TAB PO SCH (05:27)
[2018-03-15] MEDS: LEVOTHYROXINE SODIUM 100 MCG TAB PO SCH (05:27)
[2018-03-15 06:50] LABS: HEMATOCRIT 30.9 % (35.0-46.0); HEMOGLOBIN 10.3 GM/DL (11.6-15.3); MEAN CELL VOLUME 88.7 FL (80.0-100.0); MEAN CORPUSCULAR HEMOGLOBIN 29.4 PG (27.0-34.0); MEAN CORPUSCULAR HGB CONC 33.2 % (32.0-36.0); MEAN PLATELET VOLUME 8.1 FL (7.0-11.0); PLATELET COUNT 165 TH/MM3 (150-450); RED BLOOD COUNT 3.48 MIL/MM3 (4.00-5.30); RED CELL DISTRIBUTION WIDTH 15.3 % (11.6-17.2); WHITE BLOOD COUNT 7.3 TH/MM3 (4.0-11.0)
[2018-03-15 07:32] LABS: CALCIUM 8.2 MG/DL (8.5-10.1)
[2018-03-15 07:33] LABS: BICARBONATE 27.1 MEQ/L (21.0-32.0)
[2018-03-15 07:48] LABS: CREATININE 0.6 MG/DL (0.50-1.00)
[2018-03-15 07:50] VITALS: BP 110/55; PULSE 80; RESP 20; TEMP 96.2; O2SAT 90
[2018-03-15] MEDS: INSULIN ASPART SUPPLEMENTAL SCALE SQ SCH ×3 (08:00→16:43)
[2018-03-15] MEDS: INSULIN DETEMIR 100 UNITS/ML VIAL SQ SCH (08:33)
[2018-03-15] MEDS: LINACLOTIDE 145 MCG PO SCH (09:00)
[2018-03-15] MEDS: BUDESONIDE-FORMOTEROL 160/4.5 MCG INHALER INH SCH (09:18)
[2018-03-15] MEDS: SODIUM CHLORIDE 0.9% FLUSH 10 ML FLUSH IV FLUSH SCH (09:18)
[2018-03-15] MEDS: lamoTRIgine 100 MG TAB PO SCH (09:19)
[2018-03-15] MEDS: SERTRALINE HCL 100 MG TAB PO SCH (09:19)
[2018-03-15] MEDS: POLYETHYLENE GLYCOL 17 GM PKG PO SCH (09:19)
[2018-03-15] MEDS: PANTOPRAZOLE SOD 40 MG DELAYED RELEASE TAB PO SCH (09:19)
[2018-03-15] MEDS: TOPIRAMATE 25 MG TAB PO SCH (09:19)
[2018-03-15] MEDS: BENZTROPINE MESYLATE 1 MG TAB PO SCH (09:20)
[2018-03-15] MEDS: ACETAMINOPHEN/HYDROcodone 325 MG/5 MG TAB PO PRN (09:24)
[2018-03-15] MEDS ORDERED: NORC5TAB PO (11:20)
--- NOTE | 2018-03-15 11:30 | HHI.DS ---
Discharge Summary Admission Date Mar 13, 2018 at 01:18 Discharge Date: Mar 15, 2018 Admitting Diagnosis Syncopal episode (1) Chronic pain of left knee ICD Code: M25.562 - Pain in left knee; G89.29 - Other chronic pain Status: Acute (2) Diabetes type 2, uncontrolled ICD Code: E11.65 - Type 2 diabetes mellitus with hyperglycemia Status: Acute (3) HTN (hypertension) ICD Code: I10 - Essential (primary) hypertension (4) Hypothyroidism ICD Code: E03.9 - Hypothyroidism, unspecified Status: Acute (5) Bipolar disorder ICD Code: F31.9 - Bipolar disorder, unspecified Status: Acute (6) COPD (chronic obstructive pulmonary disease) ICD Code: J44.9 - Chronic obstructive pulmonary disease, unspecified Status: Acute (7) Epilepsy ICD Code: G40.909 - Epilepsy Status: Acute (8) Syncope ICD Code: R55 - Syncope and collapse Procedures None Brief History - From Admission This patient is a 67-year-old female with a history of diabetes and COPD. Patient says she got up to go to the bathroom and thinks she blacked out. She came to the hospital for ER evaluation after this fall. She did sustain some muscular skeletal injury without fracture evident on imaging. She says her back hurts 8 out of 10, there is also pain in the right shoulder and side and leg. She has difficulty ambulate due to the pain. She notes no nausea and vomiting but has chronic and intermittent diarrhea and constipation due to her irritable bowel syndrome. She is currently chemotherapy with the oncology team for breast cancer. She has not had any fevers or chills or dysuria. She was evaluated for fall several months ago and ended up with a left hip fracture which is status post repair. After that she was on Lovenox and aspirin for DVT prophylaxis does not take anything currently. The pain has not been relieved with morphine. Patient takes Mobic and hydrocodone at home for chronic joint pain. She has been recommended for observation the hospital due to these complaints CBC/BMP: 03/15/18 0635 03/15/18 0635 Significant Findings Laboratory Tests Test 03/13/18 04:50 03/15/18 06:35 Red Blood Count 3.75 MIL/MM3 (4.00-5.30) 3.48 MIL/MM3 (4.00-5.30) Hemoglobin 10.9 GM/DL (11.6-15.3) 10.3 GM/DL (11.6-15.3) Hematocrit 32.8 % (35.0-46.0) 30.9 % (35.0-46.0) Eosinophils (%) (Auto) 6.3 % (0.0-4.0) Eosinophils # (Auto) 0.6 TH/MM3 (0-0.4) Random Glucose 113 MG/DL (74-106) 46 MG/DL (74-106) Estimat Glomerular Filtration Rate 82 ML/MIN (>89) Blood Urea Nitrogen 21 MG/DL (7-18) Calcium Level 8.2 MG/DL (8.5-10.1) Chloride Level 110 MEQ/L (98-107) Imaging Last Impressions Lumbar Spine MRI 03/13/18 0000 Signed Impressions: CONCLUSION: 1. No acute compression fracture, spondylolisthesis or spondylolysis. 2. Mild to moderate bilateral foraminal narrowing at L5-S1, mild right neurofo raminal narrowing and minimal left neuroforaminal narrowing at L4-5, and minima l bilateral foraminal narrowing at L3-4. 3. Degenerative disc disease at T12-L1, L3-4, L4-5 and L5-S1. 4. 3.5 cm right renal cyst. 5. Uncomplicated colonic diverticulosis. PE at Discharge GENERAL: This is a well-nourished, well-developed patient, in no apparent distress. CARDIOVASCULAR: Regular rate and rhythm without murmurs, gallops, or rubs. RESPIRATORY: Clear to auscultation. Breath sounds equal bilaterally. No wheezes , rales, or rhonchi. GASTROINTESTINAL: Abdomen soft, non-tender, nondistended. Normal active bowel sounds MUSCULOSKELETAL: Extremities without clubbing, cyanosis, or edema. NEURO: Alert & Oriented x4 to person, place, time, situation. Moves all ext x4 Pt update on day of discharge Patient seen and evaluated today. Some hypoglycemia overnight which resolved. Patient appears to have poor dietary adherence at home requiring high doses of insulin. Not so in the hospital under a supervised environment with well- regulated diet and glucose monitoring. This is discussed with patient at length. Patient also has constipation which has not yet resolved and should be resolved with Fleet enema today. Otherwise patient is doing better. She is more amatory. Pain is better controlled. No fractures noted and discussed with patient Hospital Course This patient is a 67-year-old female with diabetes and COPD who is come to the hospital with a syncopal episode. She is frequent falls and is unstable. Patient may be experiencing hypoglycemia at home given her high doses of blood sugar and erratic dietary adherence. Patient otherwise has done well with physical therapy. Blood pressure was initially labile but improved. No evidence of sepsis Pt Condition on Discharge: Good Discharge Disposition: Disch w/ Home Health Serv Discharge Time: <= 30 minutes Discharge Instructions DIET: Follow Instructions for: Diabetic Diet Activities you can perform: Regular-No Restrictions Follow up Referrals: PCP Follow-up - 1 Week Continued Medications: Albuterol 18 GM Inh (Ventolin Hfa 18 GM Inh) 90 Mcg/Act Aer 2 PUFF INH Q4-6H PRN for SHORTNESS OF BREATH, #1 INHALER 0 Refills Benztropine (Benztropine) 0.5 Mg Tab 1 MG PO DAILY, #30 TAB [address] (Esomeprazole DR) 40 Mg Capdr 40 MG PO DAILY, #30 CAP 0 Refills Fluticasone-Salmeterol Inh (Advair Diskus Inh) 250-50 Mcg/Blist Aer 1 PUFF INH Q12HR, #1 INHALER 0 Refills Rinse mouth after use. Hydrocodone-Acetaminophen (Shellman) 5 Mg-325 Mg Tab 1-2 TAB PO Q4H PRN for PAIN, #61 TAB 0 Refills (This prescription has been renewed) Insulin Human Regular Inj (Humulin R Inj) 1,000 Unit/10 Ml Vial 1 UNITS SQ SLIDING SCALE DIR for Blood Sugar Management, #10 ML 0 Refills Lamotrigine (Lamotrigine) 100 Mg Tab 100 MG PO DAILY for Control Seizures, #30 TAB 0 Refills Levothyroxine (Levothyroxine) 175 Mcg Tab 175 MCG PO DAILY for Thyroid, TAB 0 Refills Linaclotide (Linzess) 145 Mcg Cap 145 MCG PO DAILY, CAP 0 Refills Lisinopril (Lisinopril) 10 Mg Tab 10 MG PO DAILY, #30 TAB 0 Refills Meloxicam (Meloxicam) 7.5 Mg Tab 7.5 MG PO BID for Arthritis Pain, #180 TAB 0 Refills Metoprolol Tartrate (Metoprolol Tartrate) 25 Mg Tab 25 MG PO BID for Blood Pressure Management, #180 TAB 1 Refill Olanzapine (Olanzapine) 10 Mg Tab 10 MG PO HS, #90 TAB 0 Refills Prochlorperazine Maleate (Prochlorperazine Maleate) 10 Mg Tab 10 MG PO Q6H PRN for NAUSEA OR VOMITING, TAB 0 Refills Quetiapine (Quetiapine) 300 Mg Tab 600 MG PO HS, #60 TAB 0 Refills Sertraline (Zoloft) 100 Mg Tab 100 MG PO DAILY, #30 TAB 0 Refills Topiramate (Topamax) 50 Mg Tab 50 MG PO BID for Control Seizures, #60 TAB 0 Refills Matilde Murrell MD Mar 15, 2018 11:30
[2018-03-15 11:50] VITALS: BP 151/72; PULSE 80; RESP 20; TEMP 96.9; O2SAT 93
[2018-03-15] MEDS ORDERED: SOD PHOSPHATE/SOD BIPHOSPHATE (ADULT) ENEMA 133ML RECTAL ONE (12:00)
[2018-03-15 15:50] VITALS: BP 162/73; PULSE 86; RESP 20; TEMP 97.4; O2SAT 95
== END 2018-03-15 17:06 | disposition home or self-care (01) ==
LOC: PHEDDLT 01:08 → PH3A 01:18
PROVIDERS: ADMIT Hospitalist; ATTEND Hospitalist
DX: R55 Syncope and collapse (principal); M25.562 Pain in left knee; G89.29 Other chronic pain; I10 Essential (primary) hypertension; E03.9 Hypothyroidism, unspecified; E11.65 Type 2 diabetes mellitus with hyperglycemia; E78.5 Hyperlipidemia, unspecified; C50.919 Malignant neoplasm of unspecified site of unspecified female breast; J44.9 Chronic obstructive pulmonary disease, unspecified; F31.9 Bipolar disorder, unspecified; G40.909 Epilepsy, unspecified, not intractable, without status epilepticus; N28.1 Cyst of kidney, acquired; K57.30 Diverticulosis of large intestine without perforation or abscess without bleeding; K58.9 Irritable bowel syndrome, unspecified; M06.9 Rheumatoid arthritis, unspecified; M51.35 Other intervertebral disc degeneration, thoracolumbar region; R29.6 Repeated falls; Z90.710 Acquired absence of both cervix and uterus; Z83.3 Family history of diabetes mellitus; Z85.3 Personal history of malignant neoplasm of breast
CPT/HCPCS: 72158; 80048; 82948; 85025; 85027; 93005; 96361; 96365; 96366; 96375; 96376; 97110; 97116; 97162; 97167; 97535; A9579; G0378; G8987; G8988; J0696; J1642; J2270; J7030; J7040; 70450; 73030; 74176; 80053; 81001; 87077; 87086; 87186; 96374